=== PATIENT | male | born 1950 | race Caucasian/White ===

== ENCOUNTER 2016-07-05 08:32 | Day surgery (SDC) | payer BC ==
[2016-07-02 13:24] VITALS: BMI 35.5
--- NOTE | 2016-07-03 10:42 | HP ---
DATE OF ADMISSION: CHIEF COMPLAINT: Right knee pain. HISTORY OF PRESENT ILLNESS: The patient is a 65-year-old retired gentleman who presents with progressive right knee pain for the past several months after a twisting episode. He notes pain, swelling, stiffness, and giving way. It does limit his normal activities. PAST MEDICAL HISTORY: Significant for arthritis and hypertension along with thrombocytosis and narcolepsy. PAST SURGICAL HISTORY: Significant for hernia repair along with left total knee arthroplasty. CURRENT MEDICATIONS: 1. Aspirin. 2. Diltiazem. 3. Hydroxyurea. 4. Lisinopril. 5. Metoprolol. 6. Requip. He denies drug allergies. FAMILY HISTORY: Significant for cancer and heart disease. SOCIAL HISTORY: Negative for current tobacco or alcohol use. Sixteen-point review of systems otherwise reviewed and is noncontributory. On examination, the patient is approximately 5 feet 11 inches, 196 pounds of endomorphic habitus. HEENT exam is nonfocal. Neck is supple. He has painless passive motion of his right hip. Straight leg raise is negative. Active motion right knee -8 to 85 degrees of flexion. He has a moderate effusion. He is tender about the medial joint line. Collaterals are stable, Mauro's negative, Julian's elicits medial pain. His distal neurovascular exam appears intact in the right lower extremity. X-rays to include weight-bearing notch, lateral, and merchant views of the right knee obtained in the office show moderate medial compartment narrowing. IMPRESSION: 1. Right knee moderate medial compartment osteoarthrosis. 2. Right knee internal derangement with probable medial meniscal tear. RECOMMENDATIONS: I talked to the patient at length regarding his treatment options. He is having significant pain and mechanical symptoms in his right knee that limit him. After a thorough discussion, he opts to proceed with surgery. We will plan to proceed with arthroscopic evaluation with possible partial medial meniscectomy, in addition to medial femoral chondrectomy. We will likely perform that as an outpatient procedure. The patient underwent preoperative medical evaluation by Dr. Barnes.
[~2016-07-05 08:32] MED LIST: DEXAMETHASONE SOD PHOSPHATE 10 MG/ML 1 ML VIAL IV ONE; LACTATED RINGERS 1,000 ML IV SCH; MIDAZOLAM 2 MG/2 ML VIAL IV PRN; ONDANSETRON 4 MG/2 ML VIAL IVP ONE; SCOPOLAMINE 1.5MG/72HR PATCH TRANSDERM ONE; ceFAZolin 2 GM in SODIUM CHLORIDE 0.9% 100 ML IVPB ONE
[2016-07-05] MEDS ORDERED: LIDOCAINE 1% 20 ML VIAL (10MG/ML) FOR IV START INTRADERMA ONE (09:18)
[2016-07-05] MEDS ORDERED: ROCURONIUM BROMIDE 10 MG/ML 10 ML VIAL IV ONE (10:03)
[2016-07-05] MEDS ORDERED: PROPOFOL 10 MG/ML 20 ML VIAL IV ONE (10:03)
[2016-07-05] MEDS ORDERED: NEOSTIGMINE 1 MG/ML 10 ML VIAL ONE (10:03)
[2016-07-05] MEDS ORDERED: fentaNYL (PF) 50 MCG/ML 2 ML AMP ONE (10:03)
[2016-07-05] MEDS ORDERED: MIDAZOLAM 2 MG/2 ML VIAL ONE (10:03)
[2016-07-05] MEDS ORDERED: SUCCINYLCHOLINE CHLORIDE 100 MG/5 ML SYR IV ONE (10:03)
[2016-07-05] MEDS ORDERED: LIDOCAINE 1% INJ 10MG/ML (20 ML MDV) ONE (10:03)
[2016-07-05] MEDS ORDERED: GLYCOPYRROLATE 0.2 MG/ML 2 ML VIAL ONE (10:03)
[2016-07-05] MEDS ORDERED: LACTATED RINGERS 1,000 ML IV ONE (11:00)
--- NOTE | 2016-07-05 11:13 | P.OP ---
Date of Procedure: 07/05/16 Preoperative Diagnosis: Right knee internal derangement Postoperative Diagnosis: Right knee posterior medial meniscal tear/grade 3 chondral injury distal medial portion medial femoral condyle/posterior lateral meniscal tear/reactive synovitis of the medial and patellofemoral compartments Procedure(s) Performed: Right knee arthroscopic partial medial meniscectomy/partial lateral meniscectomy /medial femoral chondrectomy/partial synovectomy of the medial and patellofemoral compartments Anesthesia: GETA Surgeon: Lazarus Woods Estimated Blood Loss (ml): 10 Pathology: none sent Condition: stable Disposition: PACU Indications for Procedure: The patient is a 65-year-old male presents with progressive right knee pain and mechanical symptoms after previous twisting injury. A discussion of the risks and benefits of continued conservative measures versus operative intervention was made with patient. He opted to proceed with surgery. Operative risks to include infection, neurovascular injury, development of blood clots, possible incomplete resolution of symptoms, possible worsening of symptoms and need for subsequent procedures was discussed. Informed consent was obtained. Operative Findings: As below Description of Procedure: The patient was brought to the operating room, and after induction of general anesthesia examined the right knee. Collaterals were stable, Mauro was negative, and posterior drawer was negative. The right lower extremity was prepped and draped in normal fashion. A superior lateral portal was made through a 3 mm skin incision superior and lateral to the patella. This was used for outflow. A moderate effusion was encountered. A lateral portal was made through a 5 mm vertical skin incision lateral to the patellar tendon above the joint line. Diagnostic arthroscopy was performed. A medial portal was made through a similar incision medial to the patellar tendon above the joint line. On inspection of the medial compartment, he is noted have a complex tear involving the posterior horn of the medial meniscus in the white-red junction. This was debrided back to stable base with straight baskets and a motorized shaver. The edges were contoured. A corresponding grade 3 chondral injury was noted involving the distal portion of the medial femoral condyle. There was a loose chondral flap debrided back to stable base with a motorized shaver. Reactive synovitis involving the medial compartment was debrided with a motorized shaver. On inspection of the notch, the anterior cruciate ligament appeared be intact. On inspection of the lateral compartment, he is noted have a degenerative oblique meniscal tear involving the posterior to middle one third in the white-white junction. This was debrided back to stable base with straight baskets and a motorized shaver. The edges were contoured. On inspection of the patellofemoral articulation, there was degenerative changes however no loose chondral fragments. Reactive synovitis was debrided with motorized shaver. The gutters were clear debris. The knee was then thoroughly irrigated. The portals were closed with Steri-Strips. A sterile dressing was applied in addition to a compression stocking. The patient was awoken from general anesthesia and transferred to the recovery room in good condition. Blood loss was estimated at 10 mL. No complications were incurred.
[2016-07-05] MEDS ORDERED: ALBUTEROL NEBULIZED 2.5 MG/3 ML INHALATION ONE (12:04)
[2016-07-05 12:16] VITALS: TEMP 98.1
[2016-07-05] MEDS: HYDROmorphone 1 MG/ML 1 ML SYRINGE IVP PRN ×2 (12:20→12:29)
[2016-07-05 14:25] VITALS: PULSE 74; RESP 20
[2016-07-05] MEDS ORDERED: HYDROcodone/APAP 5-325MG 1 EACH TAB PO ONE (14:32)
[2016-07-05 15:12] VITALS: BP 126/61
--- NOTE | 2016-07-09 13:20 | CDI ---
Dear Dr. Langley, There is a charge on this account that Ventilation Assist was given to the patient. On page 12 of the Surgical Profile it does state that the patient was received in Phase I intubated with #8 ETT and then 5 minutes later was extubated. There is no documentation as to why the patient was intubated. For proper reporting purposes, this needs clarification. Please document this clarification as an addendum to the Operative report. Thank you for your time, Kathryn Hooks, [facility] Outpatient Wire Worker [email or web address]
== END 2016-07-05 15:39 | disposition home or self-care (01) ==
LOC: OR 08:32
PROVIDERS: ATTEND Orthopaedic Surgery
DX: M17.31 Unilateral post-traumatic osteoarthritis, right knee (principal); S83.241A Other tear of medial meniscus, current injury, right knee, initial encounter; S83.281A Other tear of lateral meniscus, current injury, right knee, initial encounter; X50.1XXA Overexertion from prolonged static or awkward postures, initial encounter; S89.91XA Unspecified injury of right lower leg, initial encounter; M65.861 Other synovitis and tenosynovitis, right lower leg; I10 Essential (primary) hypertension; G47.33 Obstructive sleep apnea (adult) (pediatric); Z99.89 Dependence on other enabling machines and devices; G47.419 Narcolepsy without cataplexy; G25.81 Restless legs syndrome; Z79.01 Long term (current) use of anticoagulants; Z79.82 Long term (current) use of aspirin; Z79.899 Other long term (current) drug therapy
CPT/HCPCS: 29880; 94002; 85730; J2250; J1100; J2710; J0690; J2405; J2001; J3010; J1170; J0330; J2704

== ENCOUNTER → 2016-11-12 | Outpatient (CLI) | payer MEDICARE ==
[2016-11-12 14:25] LABS: Blood Urea Nitrogen 18 mg/dL (9-20); Non-African American GFR(MDRD) >60 (>60 ml/min/1.73 sqM)
--- NOTE | 2016-11-12 15:08 | CT ---
EXAMINATION TYPE: CT chest wo/w con DATE OF EXAM: 11/12/2016 COMPARISON: November 22, 2015 HISTORY: Sarcoid CT DLP: 1266.40 mGycm Automated exposure control for dose reduction was used. CONTRAST: CT scan of the chest is performed without and with IV Contrast, patient injected with 100 ml mL of Om nipaque 300. FINDINGS: LUNGS: Chronic elevation right hemidiaphragm. Right basilar atelectasis or parenchymal scar is unchan ged. The remainder of the lungs are clear. Calcified granulomas also noted at the right lung base. MEDIASTINUM: There are no greater than 1 cm hilar or mediastinal lymph nodes. No pericardial effusi on is seen. Thoracic aorta is of normal caliber. The heart is not enlarged. UPPER ABDOMEN: Incidental hepatic steatosis. OTHER: No additional significant abnormality is seen. IMPRESSION: 1. Stable right basilar parenchymal scarring and/or atelectasis. Chronic elevation right hemidiaphrag m.
== END | disposition home or self-care (01) ==
LOC: RADCTMAIN 13:50
PROVIDERS: ATTEND Internal Medicine Rheumatology
DX: D86.9 Sarcoidosis, unspecified (principal)
CPT/HCPCS: 82565; 84520; 71270; 36415; Q9967

== ENCOUNTER → 2017-03-04 | Outpatient (CLI) | payer MEDICARE ==
--- NOTE | 2017-03-04 11:58 | XR ---
EXAMINATION TYPE: XR chest 2V DATE OF EXAM: 03/04/2017 COMPARISON: Chest CT November 12, 2016 HISTORY: Presurgical study TECHNIQUE: Frontal and lateral views of the chest are obtained. FINDINGS: The cardiac silhouette size is stable and mildly enlarged. There is persistent elevated ri ght hemidiaphragm with patchy right greater than left bibasilar atelectasis and/or infiltrate. Upper lungs are clear without pneumothorax. Cholecystectomy clips are noted. IMPRESSION: Cardiomegaly and elevated right hemidiaphragm with right greater than left bibasilar ate lectasis and/or infiltrate all redemonstrated.
== END | disposition home or self-care (01) ==
LOC: RADXRYALE 11:39
PROVIDERS: ATTEND Internal Medicine
DX: Z01.818 Encounter for other preprocedural examination (principal); I51.7 Cardiomegaly; J98.11 Atelectasis; R91.8 Other nonspecific abnormal finding of lung field
CPT/HCPCS: 71020

== ENCOUNTER → 2017-03-10 | Outpatient (CLI) | payer MEDICARE | END | disposition home or self-care (01) | LOC: LABPAT 11:14 | PROVIDERS: ATTEND Orthopaedic Surgery | DX: Z01.812 Encounter for preprocedural laboratory examination (principal) | CPT/HCPCS: 87070 ==

== ENCOUNTER → 2017-08-05 | Outpatient (CLI) | payer MEDICARE ==
[2017-08-05 13:00] LABS: ALT 37 U/L (21-72); AST 17 U/L (17-59)
== END | disposition home or self-care (01) ==
LOC: LABWHC1 12:34
PROVIDERS: ATTEND Dermatology
DX: B35.1 Tinea unguium (principal); L57.0 Actinic keratosis; L81.0 Postinflammatory hyperpigmentation; L82.1 Other seborrheic keratosis; D18.01 Hemangioma of skin and subcutaneous tissue; D48.5 Neoplasm of uncertain behavior of skin
CPT/HCPCS: 36415; 84450; 84460

== ENCOUNTER → 2017-12-16 | Outpatient (CLI) | payer MEDICARE ==
--- NOTE | 2017-12-16 13:17 | CT ---
EXAMINATION TYPE: CT abdomen pelvis wo con DATE OF EXAM: 12/16/2017 COMPARISON: None INDICATION: renal stones DLP: 1187 mGycm, Automated exposure control for dose reduction was used. CONTRAST: 0 mL of Isovue 300. Study performed without Oral Contrast TECHNIQUE: Axial images were obtained from above the diaphragm to the pubic rami in the axial plane a t 5 mm thick sections. Reconstructed images are reviewed on the computer in the coronal plane. FINDINGS: Limited CT sections are obtained the lung bases. Minimal atelectasis may be within the posterior med ial right lung base. Lung bases are otherwise clear.. CT ABDOMEN: Liver: Normal Spleen: Normal Pancreas: Normal Adrenal glands: The adrenal glands are normal. Gallbladder: Surgically absent Kidneys: No masses are evident. No hydronephrosis is present. No cysts are present. There is a 0.3 cm nonobstructing renal stone right kidney. Couple of punctate inferior pole renal stones without ob struction may be present. There is a nonobstructing large renal stone at the inferior pole left kidne y measuring 1.1 x 0.8 cm. No hydroureter is evident. Aorta: Vascular calcification is within the aorta. Inferior vena cava: Normal. CT PELVIS: Loops of bowel within the abdomen and pelvis are normal. Study is performed without oral contrast limiting bowel loop evaluation. A few diverticuli are evident. Appendix: Not identified. No suspicious inflammatory changes or dilated tubular structures are eviden t. Urinary bladder: Normal. Genitourinary structures: Prostate is somewhat prominent. A few calcifications are within the prostat e. Osseous structures: No suspicious lytic or sclerotic lesions. Facet degenerative changes lower lumbar spine. IMPRESSIONS: 1. Bilateral nonobstructing renal stones. No hydronephrosis or hydroureter is evident. 2. Diverticulosis without acute diverticulitis. 3. Prostate hypertrophy
== END | disposition home or self-care (01) ==
LOC: RADCTMAIN 11:06
PROVIDERS: ATTEND Urology
DX: N20.0 Calculus of kidney (principal); K57.90 Diverticulosis of intestine, part unspecified, without perforation or abscess without bleeding; N40.0 Benign prostatic hyperplasia without lower urinary tract symptoms
CPT/HCPCS: 74176

== ENCOUNTER → 2018-03-03 | Outpatient (CLI) | payer MEDICARE ==
--- NOTE | 2018-03-03 22:50 | MR ---
MRI CERVICAL SPINE: CLINICAL HISTORY: M 55.12 cervical radiculopathy per order. Headache with neck pain into left hand fo r 40 years per patient. TECHNIQUE: Multiplanar, multisequence imaging of the cervical spine is performed without IV contrast. COMPARISON: None. FINDINGS: Sagittal images of the cervical spine show the craniocervical junction to appear within nor mal limits. The cervical and upper thoracic spinal cord is normal in course, caliber, and signal. V ertebral alignment is straightened. The vertebral body heights are normal. There is mild to moderat e disc space narrowing with mild to moderate anterior spurring C6-C7 level. The bone marrow signal in tensity is overall heterogeneous. Axial images at C2-C3 level shows some uncovertebral facet degenerative changes bilaterally with mild broad disc bulge mildly effaces the anterior thecal sac, there is mild to moderate bilateral neural foraminal narrowing noted. Axial images at C3-C4 level showed broad based posterior disc protrusion effacing the anterior thecal sac and causing mild bilateral neural foraminal narrowing. Axial images at C4-C5 levels show more prominent moderate broad-based posterior disc protrusion effac ing anterior thecal sac with uncovertebral facet degenerative changes bilaterally contributing to mil d to moderate left and mild right-sided neural foraminal narrowing noted. Axial images at C5-C6 level are felt within normal limits. Axial images at C6-C7 level showed broad based posterior disc protrusion effacing the anterolateral t hecal sac and causing moderate to advanced right and moderate left-sided neural foraminal narrowing w ith some marginal spurring present. Axial images at C7-T1 level are felt within normal limits. IMPRESSION: Straightening of cervical spine with multilevel degenerative changes seen as detailed abo ve.
== END | disposition home or self-care (01) ==
LOC: RADMRIMAIN 20:34
PROVIDERS: ATTEND Internal Medicine Rheumatology
DX: M99.71 Connective tissue and disc stenosis of intervertebral foramina of cervical region (principal); M50.21 Other cervical disc displacement, high cervical region; M47.812 Spondylosis without myelopathy or radiculopathy, cervical region
CPT/HCPCS: 72141

== ENCOUNTER 2019-03-26 07:00 | Day surgery (SDC) | payer MEDICARE ==
[2019-03-24 10:55] VITALS: BMI 32.8
[~2019-03-26 07:00] MED LIST changes: -DEXAMETHASONE SOD PHOSPHATE 10 MG/ML 1 ML VIAL IV ONE; +LIDOCAINE 1% 20 ML VIAL (10MG/ML) FOR IV START INTRADERMA PRN; -MIDAZOLAM 2 MG/2 ML VIAL IV PRN; -ONDANSETRON 4 MG/2 ML VIAL IVP ONE; -SCOPOLAMINE 1.5MG/72HR PATCH TRANSDERM ONE; -ceFAZolin 2 GM in SODIUM CHLORIDE 0.9% 100 ML IVPB ONE
[2019-03-26 07:31] VITALS: TEMP 98.4
[2019-03-26 07:34] LABS: Glucose,Whole Blood 139 mg/dL (75-99)
[2019-03-26] MEDS ORDERED: PROPOFOL 10 MG/ML 20 ML VIAL IV ONE (07:40)
--- NOTE | 2019-03-26 08:20 | P.OP ---
Date of Procedure: 03/26/19 Preoperative Diagnosis: Screening colonoscopy Postoperative Diagnosis: Sigmoid polyp, splenic flexure polyp Diverticulosis Procedure(s) Performed: Colonoscopy with snare polypectomy x 2 Anesthesia: MAC Surgeon: Raghav Sánchez Estimated Blood Loss (ml): 2 Condition: stable Disposition: floor Description of Procedure: Patient is brought to the Endo suite placed in left lateral decubitus position with sedation per department of anesthesia prepped and draped in usual sterile fashion timeout performed correct patient correct procedure correct site was verified rectal exam was performed no gross abnormalities were noted the scope was passed from the rectum to cecum with ease and slowly withdrawn make sure to visualize all finn of the colon on the way out there was a sessile splenic flexure polyp which was removed via piecemeal with hot snare. There was also a pedunculated sigmoid polyp removed via hot snare. There were multiple large sigmoid diverticuli noted. Scope was reflexed in the rectum no other gross abnormalities are noted scope was withdrawn patient artery procedure well no apparent complications. Patient need a repeat colonoscopy in 1-3 years pending pathology.
[2019-03-26 08:23] VITALS: RESP 16
[2019-03-26 08:49] VITALS: BP 130/84; PULSE 78
== END 2019-03-26 08:50 | disposition home or self-care (01) ==
LOC: ORWHC2ENDO 07:00
PROVIDERS: ATTEND Student in an Organized Health Care Education/Training Program
DX: Z12.11 Encounter for screening for malignant neoplasm of colon (principal); D12.3 Benign neoplasm of transverse colon; D12.5 Benign neoplasm of sigmoid colon; K57.30 Diverticulosis of large intestine without perforation or abscess without bleeding; Z85.828 Personal history of other malignant neoplasm of skin; M19.90 Unspecified osteoarthritis, unspecified site; E11.42 Type 2 diabetes mellitus with diabetic polyneuropathy; I10 Essential (primary) hypertension; G47.33 Obstructive sleep apnea (adult) (pediatric); Z99.89 Dependence on other enabling machines and devices; Z90.49 Acquired absence of other specified parts of digestive tract; Z80.1 Family history of malignant neoplasm of trachea, bronchus and lung; Z82.49 Family history of ischemic heart disease and other diseases of the circulatory system; Z79.84 Long term (current) use of oral hypoglycemic drugs; Z79.52 Long term (current) use of systemic steroids; Z79.899 Other long term (current) drug therapy; Z96.653 Presence of artificial knee joint, bilateral
CPT/HCPCS: 88305; 45385; J2704; 45384

== ENCOUNTER → 2019-11-19 | Outpatient (CLI) | payer MEDICARE | END | disposition home or self-care (01) | LOC: LABWHC1 11:56 | PROVIDERS: ATTEND Surgery Trauma Surgery | DX: Z11.59 Encounter for screening for other viral diseases (principal) | CPT/HCPCS: U0003; C9803 ==

== ENCOUNTER → 2020-02-14 | Outpatient (CLI) | payer MEDICARE ==
[2020-02-14 14:39] LABS: Basophils # (A) 0.1 k/uL (0-0.2); Basophils % (A) 1 %; Eosinophils % (A) 1 %; HCT 46.7 % (39.0-53.0); HGB 15.1 gm/dL (13.0-17.5); Lymphocytes # (A) 2.1 k/uL (1.0-4.8); Lymphocytes % (A) 33 %; MCHC 32.3 g/dL (31.0-37.0); MCV 130.1 fL (80.0-100.0); Macrocytosis Marked; Monocytes # (A) 0.5 k/uL (0-1.0); Monocytes % (A) 7 %; Neutrophils # (A) 3.5 k/uL (1.3-7.7); Neutrophils % (A) 54 %; Platelet Count 289 k/uL (150-450); RBC 3.59 m/uL (4.30-5.90); RDW 12.8 % (11.5-15.5); WBC 6.4 k/uL (3.8-10.6)
[2020-02-14 19:26] LABS: African American GFR (CKD) 101.4 (60.0-200.0); Albumin 4.3 g/dL (3.80-4.90); Albumin/Globulin Ratio 1.95 (1.60-3.17); Anion Gap 6.1 mmol/L (4.00-12.00); BUN/Creat Ratio 13.33 Ratio (12.00-20.00); C Reactive Protein, High Sens 0.84 mg/L (0.000-3.000); Calcium 9.1 mg/dL (8.7-10.3); Carbon Dioxide 29.9 mmol/L (21.6-31.8); Globulin 2.2 g/dL (1.6-3.3); Non-African American GFR(CKD) 87.5 (60.0-200.0); Potassium 4.6 mmol/L (3.5-5.5); Total Protein 6.5 g/dL (6.2-8.2)
[2020-02-14 19:34] LABS: Erythrocyte Sedimentation Rate 14 mm/Hr (0-20)
[2020-02-14 20:04] LABS: Cyclic Citrull Pep IgG Unit <0.5 U/mL; Cyclic Citrullinated Pep IgG NEGATIVE (NEGATIVE)
[2020-02-15 12:46] LABS: Hepatitis B Core IgM Non-Reactive (Non-Reactive); Hepatitis B Surface AB- Quant 3.5 mIU/mL; Hepatitis B Surface Antibody Non-Reactive (Non-Reactive); Hepatitis B Surface Antigen Non-Reactive (Non-Reactive); Hepatitis C IgG Antibody Non-Reactive (Non-Reactive)
[2020-02-15 12:57] LABS: HLA B27 NEGATIVE
== END | disposition home or self-care (01) ==
LOC: LABWHC1 12:11
PROVIDERS: ATTEND Internal Medicine Rheumatology
DX: L40.0 Psoriasis vulgaris (principal); L40.59 Other psoriatic arthropathy
CPT/HCPCS: 36415; 80053; 85025; 85652; 86038; 86141; 86200; 86431; 86480; 86704; 86705; 86706; 86803; 86812; 87340

== ENCOUNTER → 2020-03-10 | Outpatient (CLI) | payer MEDICARE | END | disposition home or self-care (01) | LOC: LABWHC1 09:11 | PROVIDERS: ATTEND Internal Medicine | DX: R05 Cough (principal); R50.9 Fever, unspecified | CPT/HCPCS: U0003; C9803 ==

== ENCOUNTER 2020-03-21 14:25 | Inpatient (IN) | payer MEDICARE ==
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
[2020-03-21] MEDS ORDERED: SODIUM CHLORIDE 0.9% 1,000 ML IV ONE (15:21)
[2020-03-21 15:49] LABS: INR 1.2 (<1.2)
[2020-03-21] MEDS: ACETAMINOPHEN TAB 325 MG TAB PO PRN (15:49)
[2020-03-21] MEDS: SODIUM CHLORIDE 0.9% 1,000 ML IV SCH (15:50)
[2020-03-21 15:51] LABS: HCT 49.9 % (39.0-53.0); HGB 16.8 gm/dL (13.0-17.5); MCHC 33.6 g/dL (31.0-37.0); Macrocytosis Marked; Mean Platelet Volume 9.1; Platelet Count 167 k/uL (150-450); RBC 4.09 m/uL (4.30-5.90); RDW 12.5 % (11.5-15.5); WBC 5.4 k/uL (3.8-10.6)
--- NOTE | 2020-03-21 15:51 | XR ---
EXAMINATION TYPE: XR chest 1V portable DATE OF EXAM: 03/21/2020 COMPARISON: 03/04/2020 HISTORY: FEVER, SOB TECHNIQUE: Single frontal view of the chest is obtained. FINDINGS: Diffuse interstitial pattern with bilateral consolidation and small effusion. Stimulator d evice noted. No pneumothorax. Heart size prominent. IMPRESSION: 1. Diffuse bilateral infiltrates with pleural effusion correlate for pneumonia. Underlying CHF felt l ess likely but not excluded.
[2020-03-21 15:54] LABS: Albumin 3.3 g/dL (3.5-5.0); C Reactive Protein 27.9 mg/L (<10.0); Calcium 8.2 mg/dL (8.4-10.2); MCV 122.1 fL (80.0-100.0); Magnesium 2.2 mg/dL (1.6-2.3); Potassium 3.7 mmol/L (3.5-5.1); Total Protein 6.3 g/dL (6.3-8.2)
[2020-03-21 15:59] LABS: D-Dimer 1.82 mg/L FEU (<0.60)
[2020-03-21 16:24] LABS: Band Neutrophils % 2 %; Lymphocytes # (M) 1.73 k/uL (1.0-4.8); Monocytes # (M) 0.65 k/uL (0-1.0); Neutrophils % (M) 54 %; Nucleated Red Blood Cells 0 /100 WBC (0-0); Total Cells Counted 100
[2020-03-21 16:25] LABS: Anisocytosis (M) Present; Polychromasia Present
--- NOTE | 2020-03-21 16:46 | CT ---
EXAMINATION TYPE: CT chest angio for PE DATE OF EXAM: 03/21/2020 COMPARISON: 11/12/2016 HISTORY: dimer elevated, covid + CT DLP: 497.2 mGycm Automated exposure control for dose reduction was used. CONTRAST: Performed with IV Contrast, patient injected with 100 mL of Isovue 370. Images obtained from the thoracic inlet to the diaphragm with 3-D post processed images. There is patchy peripheral bilateral pulmonary interstitial and airspace infiltrates. This is more co ncentrated in the lower lobes. There is relative sparing of the left upper lobe. There are a few medi astinal lymph nodes that measure up to 12 mm. There are multiple bilateral bronchial lymph nodes up t o 1 cm. There is elevation of the right diaphragm. Heart size is normal. There is no pericardial effusion. There is no pleural effusion. There is some a telectasis at both posterior lung bases. Thoracic aorta is intact. There is no aneurysm or dissection. The ascending aorta measures 3.4 cm. Upper abdominal soft tissues are intact. There is normal contrast opacification of the pulmonary arteries. There are no filling defects. Bony thorax is intact. There is no compression fracture. Sternum is intact. IMPRESSION: Bilateral patchy pneumonia and atelectasis. No evidence of pulmonary embolism. Mediastinal and bronchial lymph nodes are likely inflammatory. Pul monary infiltrates are mostly new compared to old exam. Right basilar atelectasis not significantly d ifferent.
[2020-03-21] MEDS ORDERED: NALOXONE 0.4 MG/ML 1 ML VIAL IV PRN (16:59)
[2020-03-22] MEDS ORDERED: HYDROcodone/APAP 5-325MG 1 EACH TAB PO PRN (01:33)
[2020-03-22] MEDS: ACETAMINOPHEN TAB 325 MG TAB PO PRN (02:39)
[2020-03-22] MEDS: SODIUM CHLORIDE 0.9% 1,000 ML IV SCH ×3 (02:41→16:19)
[2020-03-22] MEDS: guaiFENesin-DM 100-10MG/5ML 10 ML CUP PO PRN ×2 (02:47→09:00)
[2020-03-22 04:09] LABS: Ferritin 2543.9 ng/mL (22.0-322.0)
[2020-03-22 08:25] LABS: Glucose,Whole Blood 99 mg/dL (75-99)
[2020-03-22] MEDS: METOPROLOL TARTRATE 50 MG TAB PO SCH ×2 (09:00→22:21)
[2020-03-22] MEDS: ENOXAPARIN 40 MG/0.4 ML SYRINGE SQ SCH (09:00)
[2020-03-22] MEDS: ASPIRIN 325 MG TAB PO SCH (09:00)
[2020-03-22] MEDS: PANTOPRAZOLE 40 MG/10 ML VIAL IVP SCH (09:00)
[2020-03-22] MEDS: DILTIAZEM CD 120 MG CAP.ER.24H PO SCH ×2 (09:00→22:12)
[2020-03-22] MEDS ORDERED: dexAMETHasone 2 MG TAB PO SCH (09:00)
[2020-03-22] MEDS: PIOGLITAZONE 15 MG TAB PO SCH (09:01)
[2020-03-22] MEDS: HYDROXYUREA 500 MG CAP PO SCH ×4 (09:01→22:12)
[2020-03-22] MEDS: ASCORBIC ACID 500 MG TAB PO SCH (09:13)
[2020-03-22] MEDS: ZINC SULFATE 220 MG CAP PO SCH (09:13)
[2020-03-22 11:38] LABS: Glucose,Whole Blood 204 mg/dL (75-99)
[2020-03-22 17:12] LABS: Glucose,Whole Blood 252 mg/dL (75-99)
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
[2020-03-22 19:56] LABS: Glucose,Whole Blood 301 mg/dL (75-99)
[2020-03-22] MEDS: MELATONIN 5 MG TABLET PO SCH (22:21)
[2020-03-22] MEDS: GABAPENTIN 300 MG CAP PO SCH (22:21)
[2020-03-23] MEDS ORDERED: INSULIN ASPART (NovoLOG) 100 UNIT/ML VIAL SQ ONE (00:31)
[2020-03-23] MEDS: SODIUM CHLORIDE 0.9% 1,000 ML IV SCH ×4 (01:16→23:46)
[2020-03-23 01:23] LABS: Glucose,Whole Blood 224 mg/dL (75-99)
[2020-03-23 07:06] LABS: Glucose,Whole Blood 191 mg/dL (75-99)
[2020-03-23] MEDS: PANTOPRAZOLE 40 MG/10 ML VIAL IVP SCH (07:48)
[2020-03-23] MEDS: ENOXAPARIN 40 MG/0.4 ML SYRINGE SQ SCH (07:48)
[2020-03-23] MEDS: INSULIN ASPART (NovoLOG) 100 UNIT/ML VIAL SQ SCH ×4 (07:48→23:45)
[2020-03-23] MEDS: dexAMETHasone 2 MG TAB PO SCH (07:49)
[2020-03-23] MEDS: HYDROXYUREA 500 MG CAP PO SCH ×4 (07:49→23:16)
[2020-03-23] MEDS: FAMOTIDINE 20 MG TAB PO SCH (07:49)
[2020-03-23] MEDS: ZINC SULFATE 220 MG CAP PO SCH (07:50)
[2020-03-23] MEDS: ASCORBIC ACID 500 MG TAB PO SCH (07:50)
[2020-03-23] MEDS: CHOLECALCIFEROL 400 UNIT TAB PO SCH (07:50)
[2020-03-23] MEDS: ASPIRIN 325 MG TAB PO SCH (07:50)
[2020-03-23] MEDS: METOPROLOL TARTRATE 50 MG TAB PO SCH ×2 (07:50→23:17)
[2020-03-23] MEDS: PIOGLITAZONE 15 MG TAB PO SCH (07:50)
[2020-03-23] MEDS: DILTIAZEM CD 120 MG CAP.ER.24H PO SCH ×2 (07:51→23:15)
[2020-03-23 12:00] LABS: Glucose,Whole Blood 242 mg/dL (75-99)
--- NOTE | 2020-03-23 14:11 | P.PN ---
Subjective Progress Note Date: 03/23/20 Principal diagnosis: CoVID 19 infection The patient is seen today 03/23/2020 in follow-up on the regular medical floor. He was seen in consultation yesterday by Dr. Hernandez. He is found to have cold 19 infection. His symptoms started 3 weeks ago. He was positive on 03/10/2020. He was managing at home until the last few days he was getting more short of breath with cough congestion fever weakness. He presented to hospital for the same. Today he is feeling a bit better. He is sitting up in a chair at the bedside. He is maintaining O2 saturation in the low 90s on 2 L/m per nasal cannula. He is afebrile. Hemodynamically stable. He is continued on Decadron, Lovenox, Pepcid, vitamin C, vitamin D, zinc. Objective - Vital Signs Vital signs: Vital Signs Temp 97.5 F L 03/23/20 11:00 Pulse 52 L 03/23/20 11:00 Resp 22 03/23/20 11:00 BP 100/58 03/23/20 11:00 Pulse Ox 93 L 03/23/20 13:17 Intake & Output 03/22/20 03/23/20 03/23/20 18:59 06:59 18:59 Intake Total 500 590 Balance 500 590 Intake: Intake, IV Titration 260 Amount Sodium Chloride 0.9% 1, 260 000 ml @ 130 mls/hr IV . Q7H42M [facility] Rx#:[id number] Oral 240 590 Other: # Voids 2 # Bowel Movements 1 0 - Exam GENERAL EXAM: Alert, pleasant 69-year-old gentleman, up in a chair at the bedside, on 2 L nasal cannula comfortable in no apparent distress. HEAD: Normocephalic. EYES: Normal reaction of pupils, equal size. NOSE: Clear with pink turbinates. THROAT: No erythema or exudates. NECK: No masses, no JVD. CHEST: No chest wall deformity. LUNGS: Equal air entry with coarse scattered rhonchi bilaterally. CVS: S1 and S2 normal with no audible murmur, regular rhythm. ABDOMEN: No hepatosplenomegaly, normal bowel sounds, no guarding or rigidity. SPINE: No scoliosis or deformity SKIN: No rashes CENTRAL NERVOUS SYSTEM: No focal deficits, tone is normal in all 4 extremities. EXTREMITIES: There is no peripheral edema. No clubbing, no cyanosis. Peripheral pulses are intact. - Labs CBC & Chem 7: 03/21/20 15:16 03/21/20 15:16 Labs: Abnormal Lab Results - Last 24 Hours (Table) 03/22/20 03/22/20 03/23/20 Range/Units 17:10 19:54 01:12 POC Glucose (mg/dL) 252 H 301 H 224 H (75-99) mg/dL 03/23/20 03/23/20 Range/Units 07:05 11:56 POC Glucose (mg/dL) 191 H 242 H (75-99) mg/dL Microbiology - Last 24 Hours (Table) 03/21/20 15:16 Blood Culture - Preliminary Blood No Growth after 24 hours Assessment and Plan Assessment: 1 Acute hypoxemic respiratory failure secondary to CoVID 19 pneumonitis, tested positive 03/10/2020, outside of the window for Remdesivir 2 history of skin cancer 3 Diabetes mellitus 4 Diabetic neuropathy 5 Hypertension 6 Obstructive sleep apnea, currently on CPAP 7 Degenerative joint disease 8 Diverticular disease 9 Polycythemia rubra vera, on hydroxyurea Plan: The patient was seen and evaluated by Dr. Hernandez The patient is improved but not quite back to his baseline Continue current treatment plan Titrate down the FiO2 as tolerated Repeat chest x-ray in a.m. We'll continue to follow I, the cosigning physician, performed a history & physical examination of the patient. Lungs sounds with bilateral scattered rhonchi. Maintaining good O2 saturations in the 90s on 2 L/m per nasal cannula. I discussed the assessment and plan of care with my nurse practitioner, Betty Davis. I attest to the above note as dictated by her.
[2020-03-23 17:07] LABS: Glucose,Whole Blood 297 mg/dL (75-99)
[2020-03-23 19:58] LABS: Glucose,Whole Blood 233 mg/dL (75-99)
[2020-03-23] MEDS: MELATONIN 5 MG TABLET PO SCH (23:15)
[2020-03-23] MEDS: GABAPENTIN 300 MG CAP PO SCH (23:16)
[2020-03-23 23:41] LABS: Glucose,Whole Blood 220 mg/dL (75-99)
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
--- NOTE | 2020-03-24 00:42 | P.PN ---
Subjective This is a pleasant 69 years old male with past medical history of hypertension, diabetes mellitus, sleep apnea on BiPAP, skin cancer, blood disease that. With Dr. Whitten and is on hydroxyurea, neuropathy. He is a patient of Dr. Barnes and he was diagnosed with Covid positive test about 3 weeks ago. This time he presents because of dyspnea that is progressively worse. She has also some muscle pain and coughing and generalized weakness. Also she has some upper respiratory symptoms like sore throat with resistant loss of taste and smell. No chest pain. On admission he has fever of 100.4, he is saturating 93% on 3-4 L via nasal cannula, (was 84% on room air ), patient is tachypneic 22-28. Blood pressure is stable. CBC showing unremarkable WBC, hemoglobin is normal, platelets also normal. He has marked microcytosis with MCV of 122. INR is 1.2, d-dimer is elevated at 1.8, rest of BMP and liver enzymes were unremarkable. Ferritin is increased at 2543, lactate dehydrogenase high at 1349 and high C-reactive protein and 27.9. Pro-calcitonin is normal at 0.08 EKG showing normal sinus rhythm at 99 BPM with no significant ST-T changes CTA of the chest showing bilateral patchy pneumonia and infiltrate, no evidence of pulmonary embolism, mediastinal and bronchial lymph nodes are likely inflammatory. And emergency room he received 1 dose of ceftriaxone and 1 L of normal saline. 03/23/2020 Patient is in mild respiratory distress, he thinks he is improving, he is working between the chair in bed with no difficulties. Minimal cough. No chest pain Reason for visit oxygen with saturation 89-90% Follow-up chest x-ray not limited to marker in the morning Review of systems CONSTITUTIONAL: No fever, no malaise, no fatigue. HEENT: No recent visual problems or hearing problems. Denied any sore throat. CARDIOVASCULAR: No orthopnea, PND, no palpitations, no syncope. PULMONARY: No chest wall tenderness, no hemoptysis. GASTROINTESTINAL: No diarrhea, no nausea, no vomiting, no abdominal pain. Normoactive bowel sounds. NEUROLOGICAL: No headaches, no weakness, no numbness. HEMATOLOGICAL: Denies any bleeding or petechiae. Active Medications Generic Name Dose Route Start Last Admin Trade Name Freq PRN Reason Stop Dose Admin Acetaminophen 650 mg 03/21/20 15:00 03/22/20 02:39 Acetaminophen Tab 325 Mg Tab PO 650 mg Q4HR PRN Administration Fever>101 Hydrocodone Bitart/Acetaminophen 1 each 03/22/20 01:33 Hydrocodone/Apap 5-325mg 1 Each Tab PO Q6H PRN Pain Ascorbic Acid 1,000 mg 03/22/20 09:00 03/23/20 07:50 Ascorbic Acid 500 Mg Tab PO 1,000 mg DAILY MATT Administration Aspirin 325 mg 03/22/20 09:00 03/23/20 07:50 Aspirin 325 Mg Tab PO 325 mg DAILY MATT Administration Cholecalciferol 400 unit 03/23/20 09:00 03/23/20 07:50 Cholecalciferol 400 Unit Tab PO 400 unit DAILY MATT Administration Dexamethasone 6 mg 03/23/20 09:00 03/23/20 07:49 Dexamethasone 2 Mg Tab PO 6 mg DAILY MATT Administration Diltiazem HCl 120 mg 03/22/20 09:00 03/23/20 23:15 Diltiazem Cd 120 Mg Cap.Er.24h PO 120 mg BID MATT Administration Enoxaparin Sodium 40 mg 03/22/20 09:00 03/23/20 07:48 Enoxaparin 40 Mg/0.4 Ml Syringe SQ 40 mg DAILY MATT Administration Famotidine 40 mg 03/23/20 09:00 03/23/20 07:49 Famotidine 20 Mg Tab PO 40 mg DAILY MATT Administration Gabapentin 300 mg 03/22/20 21:00 03/23/20 23:16 Gabapentin 300 Mg Cap PO 300 mg HS MATT Administration Guaifenesin/Dextromethorphan 10 ml 03/22/20 01:33 03/22/20 09:00 Guaifenesin-Dm 100-10mg/5ml 10 Ml Cup PO 10 ml Q8H PRN Administration Cough Hydroxyurea 500 mg 03/22/20 09:00 03/23/20 23:16 Hydroxyurea 500 Mg Cap PO 500 mg QID MATT Administration Sodium Chloride 1,000 mls @ 75 mls/hr 03/21/20 15:30 03/23/20 23:46 Saline 0.9% IV 130 mls/hr .[id number] [facility] Administration Insulin Aspart 0 unit 03/23/20 07:30 03/23/20 23:45 Insulin Aspart (Novolog) 100 Unit/Ml Vial SQ 3 unit ACHS MATT Administration Protocol Melatonin 5 mg 03/22/20 21:00 03/23/20 23:15 Melatonin 5 Mg Tablet PO 5 mg HS MATT Administration Metoprolol Tartrate 100 mg 03/22/20 09:00 03/23/20 23:17 Metoprolol Tartrate 50 Mg Tab PO 100 mg BID MATT Administration Naloxone HCl 0.2 mg 03/21/20 16:59 Naloxone 0.4 Mg/Ml 1 Ml Vial IV Q2M PRN Opioid Reversal Pantoprazole Sodium 40 mg 03/22/20 09:00 03/23/20 07:48 Pantoprazole 40 Mg/10 Ml Vial IVP 40 mg DAILY MATT Administration Pioglitazone HCl 15 mg 03/22/20 09:00 03/23/20 07:50 Pioglitazone 15 Mg Tab PO 15 mg DAILY [facility]ATT Administration Ropinirole HCl 3 mg 03/22/20 09:00 03/23/20 23:15 Ropinirole Hcl 1 Mg Tab PO 3 mg QID MATT Administration Zinc Sulfate 220 mg 03/22/20 09:00 03/23/20 07:50 Zinc Sulfate 220 Mg Cap PO 220 mg DAILY MATT Administration Objective - Vital Signs Vital signs: Vital Signs Temp 97.5 F L 03/23/20 11:00 Pulse 52 L 03/23/20 11:00 Resp 22 03/23/20 11:00 BP 100/58 03/23/20 11:00 Pulse Ox 93 L 03/23/20 13:17 Intake & Output 03/22/20 03/23/20 03/23/20 18:59 06:59 18:59 Intake Total 500 590 Balance 500 590 Intake: Intake, IV Titration 260 Amount Sodium Chloride 0.9% 1, 260 000 ml @ 130 mls/hr IV . Q7H42M [facility] Rx#:[id number] Oral 240 590 Other: # Voids 2 # Bowel Movements 1 0 - Exam GENERAL: The patient is alert and oriented x3, not in any acute distress. Well developed, well nourished. HEENT: Pupils are round and equally reacting to light. EOMI. No scleral icterus. No conjunctival pallor. Normocephalic, atraumatic. No pharyngeal erythema. No thyromegaly. CARDIOVASCULAR: S1 and S2 present. No murmurs, rubs, or gallops. -PULMONARY: Chest is clear to auscultation, no wheezing. Bilateral regurgitation and decreased breath sounds ABDOMEN: Soft, nontender, nondistended, normoactive bowel sounds. No palpable organomegaly. MUSCULOSKELETAL: No joint swelling or deformity. EXTREMITIES: No cyanosis, clubbing, or pedal edema. NEUROLOGICAL: Gross neurological examination did not reveal any focal deficits. SKIN: No rashes. No petechiae - Labs CBC & Chem 7: 03/21/20 15:16 03/21/20 15:16 Labs: Abnormal Lab Results - Last 24 Hours (Table) 03/22/20 03/22/20 03/23/20 Range/Units 17:10 19:54 01:12 POC Glucose (mg/dL) 252 H 301 H 224 H (75-99) mg/dL 03/23/20 03/23/20 Range/Units 07:05 11:56 POC Glucose (mg/dL) 191 H 242 H (75-99) mg/dL Microbiology - Last 24 Hours (Table) 03/21/20 15:16 Blood Culture - Preliminary Blood No Growth after 24 hours Assessment and Plan Assessment: Bilateral Covid pneumonia acute hypoxic respiratory failure secondary to above Increase inflammatory markers secondary to above Diabetes mellitus Hypertension Sleep apnea on BiPAP Blood Dyscrasia on hydroxyurea and follow-up with Dr. Whitten History of neuropathy Plan: This is a pleasant 69 years old male who presents with bilateral Covid pneumonia. Continue with ascorbic acid and zinc, Lovenox. Continue with dexamethasone. Follow-up inflammatory markers. Consult pulmonary service Labs and medication were reviewed.. Continue same treatment. Continue with symptomatic treatment. Resume home medication. Monitor lytes and vitals. DVT and GI prophylaxis. Further recommendations depends on the clinical course of the patient DVT prophylaxis: Subcutaneous Lovenox GI Prophylaxis: Ppi Prognosis is guarded
--- NOTE | 2020-03-24 07:04 | XR ---
EXAMINATION TYPE: XR chest 1V portable DATE OF EXAM: 03/24/2020 CLINICAL HISTORY: Difficulty breathing progress study. Covid positive TECHNIQUE: Single AP portable upright view of the chest is obtained. COMPARISON: Chest x-ray and CTA chest from 3 days earlier FINDINGS: Elevated right hemidiaphragm redemonstrated. Background chronic emphysematous change with persistent left mid to basilar opacities. Worsening right mid lung predominantly peripheral opacity. Cardiac silhouette size is stable and mildly enlarged with persistent silhouetting left heart border. Cholecystectomy clips incidentally noted. Spinal stimulator device lower thoracic spinal canal redem onstrated. IMPRESSION: Chronic changes with persistent left mid to lower lung acute infiltrates felt Stable. Wor sening right midlung acute infiltrates. Findings consistent with covid-19 infection progression.
[2020-03-24 07:11] LABS: Glucose,Whole Blood 197 mg/dL (75-99)
[2020-03-24] MEDS: FAMOTIDINE 20 MG TAB PO SCH (08:44)
[2020-03-24] MEDS: ENOXAPARIN 40 MG/0.4 ML SYRINGE SQ SCH (08:44)
[2020-03-24] MEDS: INSULIN ASPART (NovoLOG) 100 UNIT/ML VIAL SQ SCH ×4 (08:45→20:32)
[2020-03-24] MEDS: PANTOPRAZOLE 40 MG/10 ML VIAL IVP SCH (08:45)
[2020-03-24] MEDS: ASPIRIN 325 MG TAB PO SCH (08:45)
[2020-03-24] MEDS: HYDROXYUREA 500 MG CAP PO SCH ×4 (08:45→22:56)
[2020-03-24] MEDS: METOPROLOL TARTRATE 50 MG TAB PO SCH ×2 (08:45→20:32)
[2020-03-24] MEDS: DILTIAZEM CD 120 MG CAP.ER.24H PO SCH ×2 (08:46→20:32)
[2020-03-24] MEDS: PIOGLITAZONE 15 MG TAB PO SCH (08:46)
[2020-03-24] MEDS: dexAMETHasone 2 MG TAB PO SCH (08:46)
[2020-03-24] MEDS: ZINC SULFATE 220 MG CAP PO SCH (08:46)
[2020-03-24] MEDS: ASCORBIC ACID 500 MG TAB PO SCH (08:47)
[2020-03-24] MEDS: CHOLECALCIFEROL 400 UNIT TAB PO SCH (08:47)
[2020-03-24] MEDS: SODIUM CHLORIDE 0.9% 1,000 ML IV SCH ×2 (09:01→20:31)
[2020-03-24 11:52] LABS: Glucose,Whole Blood 239 mg/dL (75-99)
--- NOTE | 2020-03-24 13:56 | P.PN ---
Subjective Progress Note Date: 03/24/20 Principal diagnosis: CoVID 19 infection The patient is seen today 03/23/2020 in follow-up on the regular medical floor. He was seen in consultation yesterday by Dr. Hernandez. He is found to have cold 19 infection. His symptoms started 3 weeks ago. He was positive on 03/10/2020. He was managing at home until the last few days he was getting more short of breath with cough congestion fever weakness. He presented to hospital for the same. Today he is feeling a bit better. He is sitting up in a chair at the bedside. He is maintaining O2 saturation in the low 90s on 2 L/m per nasal cannula. He is afebrile. Hemodynamically stable. He is continued on Decadron, Lovenox, Pepcid, vitamin C, vitamin D, zinc. The patient is seen today 03/24/2020 in follow-up on the regular medical floor. He is currently sitting up in a chair at the bedside. Awake and alert in no acute distress. He is maintaining O2 saturation in low 90s on 6 L high flow nasal cannula. He is currently afebrile. D-dimer 0.71. Chest x-ray reveals chronic changes with persistent left mid and lower lung infiltrates with worsening right midlung infiltrate. He remains on dexamethasone, Lovenox, vi tamin C, vitamin D, Pepcid, zinc. Objective - Vital Signs Vital signs: Vital Signs Temp 97.4 F L 03/24/20 11:35 Pulse 60 03/24/20 11:35 Resp 18 03/24/20 11:35 BP 97/59 03/24/20 11:35 Pulse Ox 91 L 03/24/20 11:35 Intake & Output 03/23/20 03/24/20 03/24/20 18:59 06:59 18:59 Intake Total 1430 Balance 1430 Intake: Intake, IV Titration 1430 Amount Sodium Chloride 0.9% 1, 1430 000 ml @ 130 mls/hr IV . Q7H42M [facility] Rx#:[id number] Other: # Voids 0 # Bowel Movements 0 - Exam GENERAL EXAM: Alert, pleasant 69-year-old gentleman, up in a chair at the bedside, on 6 L nasal cannula, comfortable in no apparent distress. HEAD: Normocephalic. EYES: Normal reaction of pupils, equal size. NOSE: Clear with pink turbinates. THROAT: No erythema or exudates. NECK: No masses, no JVD. CHEST: No chest wall deformity. LUNGS: Equal air entry with coarse scattered rhonchi bilaterally. CVS: S1 and S2 normal with no audible murmur, regular rhythm. ABDOMEN: No hepatosplenomegaly, normal bowel sounds, no guarding or rigidity. SPINE: No scoliosis or deformity SKIN: No rashes CENTRAL NERVOUS SYSTEM: No focal deficits, tone is normal in all 4 extremities. EXTREMITIES: There is no peripheral edema. No clubbing, no cyanosis. Peripheral pulses are intact. - Labs CBC & Chem 7: 03/21/20 15:16 03/21/20 15:16 Labs: Abnormal Lab Results - Last 24 Hours (Table) 03/23/20 03/23/20 03/23/20 Range/Units 17:05 19:55 23:30 D-Dimer (<0.60) mg/L FEU POC Glucose (mg/dL) 297 H 233 H 220 H (75-99) mg/dL 03/24/20 03/24/20 03/24/20 Range/Units 07:00 08:39 11:49 D-Dimer 0.71 H (<0.60) mg/L FEU POC Glucose (mg/dL) 197 H 239 H (75-99) mg/dL Microbiology - Last 24 Hours (Table) 03/21/20 15:16 Blood Culture - Preliminary Blood No Growth after 48 hours Assessment and Plan Assessment: 1 Acute hypoxemic respiratory failure secondary to CoVID 19 pneumonitis, tested positive 03/10/2020, outside of the window for Remdesivir 2 History of skin cancer 3 Diabetes mellitus 4 Diabetic neuropathy 5 Hypertension 6 Obstructive sleep apnea, currently on CPAP 7 Degenerative joint disease 8 Diverticular disease 9 Polycythemia rubra vera, on hydroxyurea Plan: The patient was seen and evaluated by Dr. Hernandez Chest x-ray and labs reviewed. Continue current treatment plan Titrate down the FiO2 as tolerated We'll continue to follow I, the cosigning physician, performed a history & physical examination of the patient. Lungs sounds with bilateral scattered rhonchi. Maintaining good O2 saturations in the 90s on 6 L/m per nasal cannula. I discussed the assessment and plan of care with my nurse practitioner, Betty Davis. I attest to the above note as dictated by her.
[2020-03-24 17:13] LABS: C Reactive Protein 2.5 mg/dL (0.0-0.8); Ferritin 1813.8 ng/mL (22.0-322.0)
[2020-03-24 17:15] LABS: Glucose,Whole Blood 240 mg/dL (75-99)
[2020-03-24 20:06] LABS: Glucose,Whole Blood 331 mg/dL (75-99)
[2020-03-24] MEDS: MELATONIN 5 MG TABLET PO SCH (20:32)
[2020-03-24] MEDS: GABAPENTIN 300 MG CAP PO SCH (20:32)
[2020-03-25 07:26] LABS: Glucose,Whole Blood 197 mg/dL (75-99)
[2020-03-25 09:25] LABS: HCT 43.5 % (39.0-53.0); HGB 14.7 gm/dL (13.0-17.5); MCH 41.3 pg (25.0-35.0); MCHC 33.8 g/dL (31.0-37.0); MCV 122.2 fL (80.0-100.0); Macrocytosis Marked; Mean Platelet Volume 8.6; Platelet Count 304 k/uL (150-450); RBC 3.56 m/uL (4.30-5.90); RDW 12.1 % (11.5-15.5); WBC 6.3 k/uL (3.8-10.6)
[2020-03-25 09:37] LABS: African American GFR (CKD) >90 (>60 ml/min/1.73 sqM); Anion Gap 0 mmol/L; Blood Urea Nitrogen 22 mg/dL (9-20); C Reactive Protein 18.6 mg/L (<10.0); Calcium 8.3 mg/dL (8.4-10.2); Carbon Dioxide 31 mmol/L (22-30); Chloride 107 mmol/L (98-107); Glucose 243 mg/dL (74-99); LDH 1140 U/L (313-618); Non-African American GFR(CKD) >90 (>60 ml/min/1.73 sqM); Potassium 5.4 mmol/L (3.5-5.1); Sodium 138 mmol/L (137-145)
[2020-03-25] MEDS: INSULIN ASPART (NovoLOG) 100 UNIT/ML VIAL SQ SCH ×5 (09:41→20:29)
[2020-03-25] MEDS: METOPROLOL TARTRATE 50 MG TAB PO SCH ×2 (09:42→20:29)
[2020-03-25] MEDS: ASPIRIN 325 MG TAB PO SCH (09:42)
[2020-03-25] MEDS: FAMOTIDINE 20 MG TAB PO SCH (09:42)
[2020-03-25] MEDS: dexAMETHasone 2 MG TAB PO SCH (09:42)
[2020-03-25] MEDS: ASCORBIC ACID 500 MG TAB PO SCH (09:43)
[2020-03-25] MEDS: PANTOPRAZOLE 40 MG/10 ML VIAL IVP SCH (09:43)
[2020-03-25] MEDS: ZINC SULFATE 220 MG CAP PO SCH (09:43)
[2020-03-25] MEDS: HYDROXYUREA 500 MG CAP PO SCH ×4 (09:44→22:38)
[2020-03-25] MEDS: CHOLECALCIFEROL 400 UNIT TAB PO SCH (09:45)
[2020-03-25] MEDS: ENOXAPARIN 40 MG/0.4 ML SYRINGE SQ SCH (09:45)
[2020-03-25] MEDS: PIOGLITAZONE 15 MG TAB PO SCH (09:45)
[2020-03-25] MEDS: DILTIAZEM CD 120 MG CAP.ER.24H PO SCH ×2 (09:45→20:29)
[2020-03-25] MEDS: SODIUM CHLORIDE 0.9% 1,000 ML IV SCH ×2 (09:51→20:32)
[2020-03-25 10:26] LABS: Band Neutrophils % 1 %; Lymphocytes # (M) 1.01 k/uL (1.0-4.8); Monocytes # (M) 0.13 k/uL (0-1.0); Neutrophils % (M) 81 %; Nucleated Red Blood Cells 0 /100 WBC (0-0); Total Cells Counted 100
[2020-03-25 10:27] LABS: Anisocytosis (M) Present; Polychromasia Present
--- NOTE | 2020-03-25 11:30 | P.PN ---
Subjective This is a pleasant 69 years old male with past medical history of hypertension, diabetes mellitus, sleep apnea on BiPAP, skin cancer, blood disease that. With Dr. Whitten and is on hydroxyurea, neuropathy. He is a patient of Dr. Barnes and he was diagnosed with Covid positive test about 3 weeks ago. This time he presents because of dyspnea that is progressively worse. She has also some muscle pain and coughing and generalized weakness. Also she has some upper respiratory symptoms like sore throat with resistant loss of taste and smell. No chest pain. On admission he has fever of 100.4, he is saturating 93% on 3-4 L via nasal cannula, (was 84% on room air ), patient is tachypneic 22-28. Blood pressure is stable. CBC showing unremarkable WBC, hemoglobin is normal, platelets also normal. He has marked microcytosis with MCV of 122. INR is 1.2, d-dimer is elevated at 1.8, rest of BMP and liver enzymes were unremarkable. Ferritin is increased at 2543, lactate dehydrogenase high at 1349 and high C-reactive protein and 27.9. Pro-calcitonin is normal at 0.08 EKG showing normal sinus rhythm at [address]PM with no significant [address]-T changes CTA of the chest showing bilateral patchy pneumonia and infiltrate, no evidence of pulmonary embolism, mediastinal and bronchial lymph nodes are likely inflammatory. And emergency room he received 1 dose of ceftriaxone and 1 L of normal saline. 03/23/2020 Patient is in mild respiratory distress, he thinks he is improving, he is working between the chair in bed with no difficulties. Minimal cough. No chest pain Reason for visit oxygen with saturation 89-90% Follow-up chest x-ray not limited to marker in the morning 03/24/2020 Patient is at the bedside, no respiratory distress, talking easily. He states that his improving gradually. No significant coughing. No significant dyspnea. However his cell noticed to be tachypneic. No chest pain. No GI symptoms. His oxygen requirements went up to 6-9 L/m via nasal cannula Pulmonary team on the case and patient is followed closely by Dr. Hernandez chest x-ray: Chronic changes with persistent left mid to lower lung acute infiltrates felt stable. Worsening right mid lung acute infiltrates. Findings consistent with Covid 19 infection or progression .Continue with treatment as per recommendation by pulmonary team, is currently on dexamethasone, Lovenox also on vitamin C and zinc. Review of systems CONSTITUTIONAL: No fever, no malaise, no fatigue. HEENT: No recent visual problems or hearing problems. Denied any sore throat. CARDIOVASCULAR: No orthopnea, PND, no palpitations, no syncope. PULMONARY: No chest wall tenderness, no hemoptysis. GASTROINTESTINAL: No diarrhea, no nausea, no vomiting, no abdominal pain. Normoa ctive bowel sounds. NEUROLOGICAL: No headaches, no weakness, no numbness. HEMATOLOGICAL: Denies any bleeding or petechiae. Active Medications Acetaminophen (Acetaminophen Tab 325 Mg Tab) Pulmonary team on the case and patient is found closely by Dr. Hernandez, Who ordered inflammatory markers and chest x-ray: Findings consistent with patient's history of pneumonia, progression compared to prior exam .Continue with treatment as per recommendation by pulmonary team, is currently on dexamethasone, Lovenox and remdesivir, also on vitamin C and zinc. Antibiotics were stopped by pulmonary team Hydrocodone Bitart/Acetaminophen (Hydrocodone/Apap 5-325mg 1 Each Tab) 1 each PO Q6H PRN Ascorbic Acid (Ascorbic Acid 500 Mg Tab) 1,000 mg PO DAILY [facility] Aspirin (Aspirin 325 Mg Tab) 325 mg PO DAILY [facility] Cholecalciferol (Cholecalciferol 400 Unit Tab) 400 unit PO DAILY [facility] Dexamethasone (Dexamethasone 2 Mg Tab) 6 mg PO DAILY [facility] Diltiazem HCl (Diltiazem Cd 120 Mg Cap.Er.24h) 120 mg PO BID [facility] Enoxaparin Sodium (Enoxaparin 40 Mg/0.4 Ml Syringe) 40 mg SQ DAILY [facility] Famotidine (Famotidine 20 Mg Tab) 40 mg PO DAILY [facility] Gabapentin (Gabapentin 300 Mg Cap) 300 mg PO HS [facility] Guaifenesin/Dextromethorphan (Guaifenesin-Dm 100-10mg/5ml 10 Ml Cup) 10 ml PO Q8H PRN Hydroxyurea (Hydroxyurea 500 Mg Cap) 500 mg PO QID [facility] Sodium Chloride (Saline 0.9%) 1,000 mls @ 75 mls/hr IV .[id number] [facility] Insulin Aspart (Insulin Aspart (Novolog) 100 Unit/Ml Vial) 0 unit SQ ACHS [facility]; Protocol Melatonin (Melatonin 5 Mg Tablet) 5 mg PO HS [facility] Metoprolol Tartrate (Metoprolol Tartrate 50 Mg Tab) 100 mg PO BID [facility] Naloxone HCl (Naloxone 0.4 Mg/Ml 1 Ml Vial) 0.2 mg IV Q2M PRN Pantoprazole Sodium (Pantoprazole 40 Mg/10 Ml Vial) 40 mg IVP DAILY [facility] Pioglitazone HCl (Pioglitazone 15 Mg Tab) 15 mg PO DAILY [facility]ATT Ropinirole HCl (Ropinirole Hcl 1 Mg Tab) 3 mg PO QID [facility] Zinc Sulfate (Zinc Sulfate 220 Mg Cap) 220 mg PO DAILY [facility] Objective - Vital Signs Vital signs: Vital Signs Temp 97.4 F L 03/24/20 14:08 Pulse 89 03/24/20 14:08 Resp 22 03/24/20 14:08 BP 142/78 03/24/20 14:08 Pulse Ox 90 L 03/24/20 14:08 Intake & Output 03/23/20 03/24/20 03/24/20 18:59 06:59 18:59 Intake Total 1430 Balance 1430 Intake: Intake, IV Titration 1430 Amount Sodium Chloride 0.9% 1, 1430 000 ml @ 130 mls/hr IV . Q7H42M [facility] Rx#:[id number] Other: # Voids 0 # Bowel Movements 0 - Exam GENERAL: The patient is alert and oriented x3, not in any acute distress. Well developed, well nourished. HEENT: Pupils are round and equally reacting to light. EOMI. No scleral icterus. No conjunctival pallor. Normocephalic, atraumatic. No pharyngeal erythema. No thyromegaly. CARDIOVASCULAR: S1 and S2 present. No murmurs, rubs, or gallops. -PULMONARY: Chest is clear to auscultation, no wheezing. Bilateral regurgitation and decreased breath sounds ABDOMEN: Soft, nontender, nondistended, normoactive bowel sounds. No palpable organomegaly. MUSCULOSKELETAL: No joint swelling or deformity. EXTREMITIES: No cyanosis, clubbing, or pedal edema. NEUROLOGICAL: Gross neurological examination did not reveal any focal deficits. SKIN: No rashes. No petechiae - Labs CBC & Chem 7: 03/25/20 08:59 03/25/20 08:59 Labs: Abnormal Lab Results - Last 24 Hours (Table) 03/23/20 03/23/20 03/23/20 Range/Units 17:05 19:55 23:30 D-Dimer (<0.60) mg/L FEU POC Glucose (mg/dL) 297 H 233 H 220 H (75-99) mg/dL 03/24/20 03/24/20 03/24/20 Range/Units 07:00 08:39 11:49 D-Dimer 0.71 H (<0.60) mg/L FEU POC Glucose (mg/dL) 197 H 239 H (75-99) mg/dL Microbiology - Last 24 Hours (Table) 03/21/20 15:16 Blood Culture - Preliminary Blood No Growth after 48 hours Assessment and Plan Assessment: Bilateral Covid pneumonia acute hypoxic respiratory failure secondary to above Increase inflammatory markers secondary to above Diabetes mellitus Hypertension Sleep apnea on BiPAP Blood Dyscrasia on hydroxyurea and follow-up with Dr. Whitten History of neuropathy Plan: This is a pleasant 69 years old male who presents with bilateral Covid pneumonia. Continue with ascorbic acid and zinc, Lovenox. Continue with dexamethasone. Follow-up inflammatory markers. Consult pulmonary service Labs and medication were reviewed.. Continue same treatment. Continue with symptomatic treatment. Resume home medication. Monitor lytes and vitals. DVT and GI prophylaxis. Further recommendations depends on the clinical course of the patient DVT prophylaxis: Subcutaneous Lovenox GI Prophylaxis: Ppi Prognosis is guarded
[2020-03-25 12:46] LABS: Glucose,Whole Blood 276 mg/dL (75-99)
--- NOTE | 2020-03-25 13:10 | P.PN ---
Subjective Progress Note Date: 03/25/20 Principal diagnosis: CoVID 19 infection The patient is seen today 03/23/2020 in follow-up on the regular medical floor. He was seen in consultation yesterday by Dr. Hernandez. He is found to have cold 19 infection. His symptoms started 3 weeks ago. He was positive on 03/10/2020. He was managing at home until the last few days he was getting more short of breath with cough congestion fever weakness. He presented to hospital for the same. Today he is feeling a bit better. He is sitting up in a chair at the bedside. He is maintaining O2 saturation in the low 90s on 2 L/m per nasal cannula. He is afebrile. Hemodynamically stable. He is continued on Decadron, Lovenox, Pepcid, vitamin C, vitamin D, zinc. The patient is seen today 03/24/2020 in follow-up on the regular medical floor. He is currently sitting up in a chair at the bedside. Awake and alert in no acute distress. He is maintaining O2 saturation in low 90s on 6 L high flow nasal cannula. He is currently afebrile. D-dimer 0.71. Chest x-ray reveals chronic changes with persistent left mid and lower lung infiltrates with worsening right midlung infiltrate. He remains on dexamethasone, Lovenox, vi tamin C, vitamin D, Pepcid, zinc. The patient is seen today 03/25/2020 in follow-up on the regular medical floor. He is currently sitting up in bed. Awake and alert in no acute distress. Maintaining O2 saturation in the 90s on 6 L high flow nasal cannula. Afebrile. Hemodynamically stable. Blood culture reveals no growth. White count 6.3. Hemoglobin 14.7. D-dimer 0.68. Sodium 138. Potassium 5.4. Creatinine 0.83. LDH 1140. C-reactive protein 18.6. He remains on Decadron, Lovenox, vitamin supplements. Objective - Vital Signs Vital signs: Vital Signs Temp 97.5 F L 03/25/20 11:00 Pulse 55 L 03/25/20 11:00 Resp 18 03/25/20 11:00 BP 108/66 03/25/20 11:00 Pulse Ox 90 L 03/25/20 11:00 Intake & Output 03/24/20 03/25/20 03/25/20 18:59 06:59 18:59 Intake Total 2089 Balance 2089 Intake: Intake, IV Titration 900 Amount Sodium Chloride 0.9% 1, 900 000 ml @ 75 mls/hr IV . [id number] [facility] Rx#:[id number] Oral 1190 Other: # Voids 1 2 - Exam GENERAL EXAM: Alert, pleasant 69-year-old gentleman, currently resting in bed, on 6 L nasal cannula, comfortable in no apparent distress. HEAD: Normocephalic. EYES: Normal reaction of pupils, equal size. NOSE: Clear with pink turbinates. THROAT: No erythema or exudates. NECK: No masses, no JVD. CHEST: No chest wall deformity. LUNGS: Equal air entry with coarse scattered rhonchi bilaterally. CVS: S1 and S2 normal with no audible murmur, regular rhythm. ABDOMEN: No hepatosplenomegaly, normal bowel sounds, no guarding or rigidity. SPINE: No scoliosis or deformity SKIN: No rashes CENTRAL NERVOUS SYSTEM: No focal deficits, tone is normal in all 4 extremities. EXTREMITIES: There is no peripheral edema. No clubbing, no cyanosis. Peripheral pulses are intact. - Labs CBC & Chem 7: 03/25/20 08:59 03/25/20 08:59 Labs: Abnormal Lab Results - Last 24 Hours (Table) 03/24/20 03/24/20 03/24/20 Range/Units 08:39 17:00 20:04 RBC (4.30-5.90) m/uL MCV (80.0-100.0) fL MCH (25.0-35.0) pg Macrocytosis D-Dimer (<0.60) mg/L FEU Potassium (3.5-5.1) mmol/L Carbon Dioxide (22-30) mmol/L BUN (9-20) mg/dL Glucose (74-99) mg/dL POC Glucose (mg/dL) 240 H 331 H (75-99) mg/dL Calcium (8.4-10.2) mg/dL Ferritin 1813.8 H (22.0-322.0) ng/mL Lactate Dehydrogenase 463 H (120-246) U/L C-Reactive Protein 2.5 H (0.0-0.8) mg/dL 03/25/20 03/25/20 03/25/20 Range/Units 07:25 08:59 08:59 RBC 3.56 L (4.30-5.90) m/uL MCV 122.2 H (80.0-100.0) fL MCH 41.3 H (25.0-35.0) pg Macrocytosis Marked A D-Dimer 0.68 H (<0.60) mg/L FEU Potassium (3.5-5.1) mmol/L Carbon Dioxide (22-30) mmol/L BUN (9-20) mg/dL Glucose (74-99) mg/dL POC Glucose (mg/dL) 197 H (75-99) mg/dL Calcium (8.4-10.2) mg/dL Ferritin (22.0-322.0) ng/mL Lactate Dehydrogenase (120-246) U/L C-Reactive Protein (0.0-0.8) mg/dL 03/25/20 03/25/20 Range/Units 08:59 12:46 RBC (4.30-5.90) m/uL MCV (80.0-100.0) fL MCH (25.0-35.0) pg Macrocytosis D-Dimer (<0.60) mg/L FEU Potassium 5.4 H (3.5-5.1) mmol/L Carbon Dioxide 31 H (22-30) mmol/L BUN 22 H (9-20) mg/dL Glucose 243 H (74-99) mg/dL POC Glucose (mg/dL) 276 H (75-99) mg/dL Calcium 8.3 L (8.4-10.2) mg/dL Ferritin (22.0-322.0) ng/mL Lactate Dehydrogenase 1140 H (120-246) U/L C-Reactive Protein 18.6 H (0.0-0.8) mg/dL Microbiology - Last 24 Hours (Table) 03/21/20 15:16 Blood Culture - Preliminary Blood No Growth after 72 hours Assessment and Plan Assessment: 1 Acute hypoxemic respiratory failure secondary to CoVID 19 pneumonitis, tested positive 03/10/2020, outside of the window for Remdesivir 2 History of skin cancer 3 Diabetes mellitus 4 Diabetic neuropathy 5 Hypertension 6 Obstructive sleep apnea, currently on CPAP 7 Degenerative joint disease 8 Diverticular disease 9 Polycythemia rubra vera, on hydroxyurea Plan: The patient was seen and evaluated by Dr. Hernandez Currently stable from the pulmonary standpoint Continue current treatment plan Titrate down the FiO2 as tolerated We will continue to follow and make further recommendations based on his clinical status I, the cosigning physician, performed a history & physical examination of the patient. Lungs sounds with bilateral scattered rhonchi. Maintaining good O2 saturations in the 90s on 6 L/m per nasal cannula. I discussed the assessment and plan of care with my nurse practitioner, Betty Davis. I attest to the above note as dictated by her.
[2020-03-25 17:34] LABS: Glucose,Whole Blood 324 mg/dL (75-99)
[2020-03-25 18:38] LABS: Ferritin 1637.7 ng/mL (22.0-322.0)
[2020-03-25 20:17] LABS: Glucose,Whole Blood 265 mg/dL (75-99)
[2020-03-25] MEDS: GABAPENTIN 300 MG CAP PO SCH (20:29)
[2020-03-25] MEDS: MELATONIN 5 MG TABLET PO SCH (20:29)
[2020-03-26 07:12] LABS: Glucose,Whole Blood 272 mg/dL (75-99)
[2020-03-26 08:35] LABS: Basophils % (A) 0 %; Eosinophils % (A) 0 %; HCT 43.9 % (39.0-53.0); HGB 14.2 gm/dL (13.0-17.5); Lymphocytes # (A) 1.2 k/uL (1.0-4.8); Lymphocytes % (A) 20 %; MCH 40.6 pg (25.0-35.0); MCHC 32.3 g/dL (31.0-37.0); MCV 125.4 fL (80.0-100.0); Macrocytosis Marked; Mean Platelet Volume 8.9; Monocytes # (A) 0.1 k/uL (0-1.0); Monocytes % (A) 1 %; Neutrophils # (A) 4.5 k/uL (1.3-7.7); Neutrophils % (A) 75 %; Platelet Count 322 k/uL (150-450); RDW 12.7 % (11.5-15.5)
[2020-03-26] MEDS: ASCORBIC ACID 500 MG TAB PO SCH (08:38)
[2020-03-26] MEDS: INSULIN ASPART (NovoLOG) 100 UNIT/ML VIAL SQ SCH ×4 (08:38→22:11)
[2020-03-26] MEDS: dexAMETHasone 2 MG TAB PO SCH (08:38)
[2020-03-26] MEDS: METOPROLOL TARTRATE 50 MG TAB PO SCH ×2 (08:39→21:49)
[2020-03-26] MEDS: PANTOPRAZOLE 40 MG/10 ML VIAL IVP SCH (08:39)
[2020-03-26] MEDS: ASPIRIN 325 MG TAB PO SCH (08:39)
[2020-03-26] MEDS: FAMOTIDINE 20 MG TAB PO SCH (08:39)
[2020-03-26] MEDS: ZINC SULFATE 220 MG CAP PO SCH (08:39)
[2020-03-26] MEDS: HYDROXYUREA 500 MG CAP PO SCH ×4 (08:40→22:10)
[2020-03-26] MEDS: DILTIAZEM CD 120 MG CAP.ER.24H PO SCH ×2 (08:40→22:11)
[2020-03-26] MEDS: PIOGLITAZONE 15 MG TAB PO SCH (08:40)
[2020-03-26] MEDS: CHOLECALCIFEROL 400 UNIT TAB PO SCH (08:40)
[2020-03-26] MEDS: ENOXAPARIN 40 MG/0.4 ML SYRINGE SQ SCH (08:41)
[2020-03-26 09:02] LABS: Anisocytosis (M) Present
[2020-03-26 11:31] LABS: Glucose,Whole Blood 262 mg/dL (75-99)
--- NOTE | 2020-03-26 13:47 | P.PN ---
Subjective Progress Note Date: 03/26/20 Principal diagnosis: CoVID 19 infection The patient is seen today 03/23/2020 in follow-up on the regular medical floor. He was seen in consultation yesterday by Dr. Hernandez. He is found to have cold 19 infection. His symptoms started 3 weeks ago. He was positive on 03/10/2020. He was managing at home until the last few days he was getting more short of breath with cough congestion fever weakness. He presented to hospital for the same. Today he is feeling a bit better. He is sitting up in a chair at the bedside. He is maintaining O2 saturation in the low 90s on 2 L/m per nasal cannula. He is afebrile. Hemodynamically stable. He is continued on Decadron, Lovenox, Pepcid, vitamin C, vitamin D, zinc. The patient is seen today 03/24/2020 in follow-up on the regular medical floor. He is currently sitting up in a chair at the bedside. Awake and alert in no acute distress. He is maintaining O2 saturation in low 90s on 6 L high flow nasal cannula. He is currently afebrile. D-dimer 0.71. Chest x-ray reveals chronic changes with persistent left mid and lower lung infiltrates with worsening right midlung infiltrate. He remains on dexamethasone, Lovenox, vi tamin C, vitamin D, Pepcid, zinc. The patient is seen today 03/25/2020 in follow-up on the regular medical floor. He is currently sitting up in bed. Awake and alert in no acute distress. Maintaining O2 saturation in the 90s on 6 L high flow nasal cannula. Afebrile. Hemodynamically stable. Blood culture reveals no growth. White count 6.3. Hemoglobin 14.7. D-dimer 0.68. Sodium 138. Potassium 5.4. Creatinine 0.83. LDH 1140. C-reactive protein 18.6. He remains on Decadron, Lovenox, vitamin supplements. The patient is seen today 03/26/2020 in follow-up on the regular medical floor. He is awake and alert in no acute distress. Sitting up at the bedside. Maintaining O2 saturation in the 90s on 2 L/m per nasal cannula. He did desaturate into the 70s when trialed on room air. He is currently afebrile. White count 6.0. Hemoglobin 14.2. Platelet count 322. Receiving 0.9 normal saline at 75 ML's per hour. Continued on Lovenox, dexamethasone, vitamin supplements. Objective - Vital Signs Vital signs: Vital Signs Temp 97.6 F 03/26/20 11:00 Pulse 56 L 03/26/20 11:00 Resp 16 03/26/20 11:00 BP 137/77 03/26/20 11:00 Pulse Ox 94 L 03/26/20 12:26 Intake & Output 03/25/20 03/26/20 03/26/20 18:59 06:59 18:59 Intake Total 950 Balance 950 Intake: Oral 950 Other: # Voids 2 - Exam GENERAL EXAM: Alert, pleasant 69-year-old gentleman, currently resting in bed, on 2 L nasal cannula, comfortable in no apparent distress. HEAD: Normocephalic. EYES: Normal reaction of pupils, equal size. NOSE: Clear with pink turbinates. THROAT: No erythema or exudates. NECK: No masses, no JVD. CHEST: No chest wall deformity. LUNGS: Equal air entry with coarse scattered rhonchi bilaterally. CVS: S1 and S2 normal with no audible murmur, regular rhythm. ABDOMEN: No hepatosplenomegaly, normal bowel sounds, no guarding or rigidity. SPINE: No scoliosis or deformity SKIN: No rashes CENTRAL NERVOUS SYSTEM: No focal deficits, tone is normal in all 4 extremities. EXTREMITIES: There is no peripheral edema. No clubbing, no cyanosis. Sona pheral pulses are intact. - Labs CBC & Chem 7: 03/26/20 07:52 03/25/20 08:59 Labs: Abnormal Lab Results - Last 24 Hours (Table) 03/25/20 03/25/20 03/25/20 Range/Units 08:59 17:33 20:15 RBC (4.30-5.90) m/uL MCV (80.0-100.0) fL MCH (25.0-35.0) pg Macrocytosis POC Glucose (mg/dL) 324 H 265 H (75-99) mg/dL Ferritin 1637.7 H (22.0-322.0) ng/mL 03/26/20 03/26/20 03/26/20 Range/Units 07:11 07:52 11:30 RBC 3.50 L (4.30-5.90) m/uL MCV 125.4 H (80.0-100.0) fL MCH 40.6 H (25.0-35.0) pg Macrocytosis Marked A POC Glucose (mg/dL) 272 H 262 H (75-99) mg/dL Ferritin (22.0-322.0) ng/mL Microbiology - Last 24 Hours (Table) 03/21/20 15:16 Blood Culture - Preliminary Blood No Growth after 96 hours Assessment and Plan Assessment: 1 Acute hypoxemic respiratory failure secondary to CoVID 19 pneumonitis, tested positive 03/10/2020, outside of the window for Remdesivir 2 History of skin cancer 3 Diabetes mellitus 4 Diabetic neuropathy 5 Hypertension 6 Obstructive sleep apnea, currently on CPAP 7 Degenerative joint disease 8 Diverticular disease 9 Polycythemia rubra vera, on hydroxyurea Plan: The patient was seen and evaluated by Dr. Hernandez Continue current treatment plan Titrate down the FiO2 as tolerated Repeat chest x-ray and inflammatory markers in a.m. We will continue to follow and make further recommendations based on his clinical status I, the cosigning physician, performed a history & physical examination of the patient. Lungs sounds with bilateral scattered rhonchi. Maintaining good O2 saturations in the 90s on 2 L/m per nasal cannula. I discussed the assessment and plan of care with my nurse practitioner, Betty Davis. I attest to the above note as dictated by her.
[2020-03-26 17:03] LABS: Glucose,Whole Blood 238 mg/dL (75-99)
[2020-03-26] MEDS: SODIUM CHLORIDE 0.9% 1,000 ML IV SCH ×2 (18:08→22:12)
[2020-03-26 20:12] LABS: Glucose,Whole Blood 325 mg/dL (75-99)
[2020-03-26] MEDS: GABAPENTIN 300 MG CAP PO SCH (22:10)
[2020-03-26] MEDS: MELATONIN 5 MG TABLET PO SCH (22:10)
[2020-03-27] MEDS: SODIUM CHLORIDE 0.9% 1,000 ML IV SCH (05:42)
[2020-03-27 07:10] LABS: Glucose,Whole Blood 204 mg/dL (75-99)
[2020-03-27] MEDS: INSULIN ASPART (NovoLOG) 100 UNIT/ML VIAL SQ SCH ×4 (08:11→20:49)
[2020-03-27] MEDS: ZINC SULFATE 220 MG CAP PO SCH (08:11)
[2020-03-27] MEDS: FAMOTIDINE 20 MG TAB PO SCH (08:11)
[2020-03-27] MEDS: ASCORBIC ACID 500 MG TAB PO SCH (08:12)
[2020-03-27] MEDS: PANTOPRAZOLE 40 MG/10 ML VIAL IVP SCH (08:12)
[2020-03-27] MEDS: ASPIRIN 325 MG TAB PO SCH (08:12)
[2020-03-27] MEDS: PIOGLITAZONE 15 MG TAB PO SCH (08:12)
[2020-03-27] MEDS: dexAMETHasone 2 MG TAB PO SCH (08:12)
[2020-03-27] MEDS: ENOXAPARIN 40 MG/0.4 ML SYRINGE SQ SCH (08:12)
[2020-03-27] MEDS: CHOLECALCIFEROL 400 UNIT TAB PO SCH (08:13)
[2020-03-27] MEDS: DILTIAZEM CD 120 MG CAP.ER.24H PO SCH ×2 (08:13→20:49)
[2020-03-27] MEDS: HYDROXYUREA 500 MG CAP PO SCH ×4 (08:14→20:49)
[2020-03-27] MEDS: METOPROLOL TARTRATE 50 MG TAB PO SCH ×2 (08:14→20:49)
--- NOTE | 2020-03-27 09:09 | XR ---
EXAMINATION TYPE: XR chest 1V portable DATE OF EXAM: 03/27/2020 CLINICAL HISTORY: Difficulty breathing and covid pneumonitis progress study. TECHNIQUE: Single AP portable upright view of the chest is obtained. COMPARISON: Chest x-ray from [address] chest 6 days ago. FINDINGS: Elevated right hemidiaphragm redemonstrated. Background chronic emphysematous change with persistent left mid to lower opacities. Persistent more diffuse right lung opacities, continued progr ession upper lung from most recent prior. Cardiac silhouette size is stable and mildly enlarged with persistent silhouetting left heart border. Cholecystectomy clips incidentally noted. Spinal stimulato r device lower thoracic spinal canal redemonstrated. IMPRESSION: Chronic changes with persistent bilateral acute infiltrates felt slight worsening in the right upper lung from most recent prior. Findings consistent with covid-19 infection progression.
[2020-03-27 09:58] LABS: African American GFR (CKD) 106.4 (60.0-200.0); Anion Gap 5.4 mmol/L (4.00-12.00); BUN/Creat Ratio 26.25 Ratio (12.00-20.00); C Reactive Protein 0.4 mg/dL (0.0-0.8); Calcium 8.3 mg/dL (8.7-10.3); Carbon Dioxide 30.6 mmol/L (21.6-31.8); Ferritin 1582.3 ng/mL (22.0-322.0); Non-African American GFR(CKD) 91.8 (60.0-200.0); Potassium 5.3 mmol/L (3.5-5.5)
[2020-03-27 12:07] LABS: Glucose,Whole Blood 323 mg/dL (75-99)
--- NOTE | 2020-03-27 14:14 | P.PN ---
Subjective Progress Note Date: 03/25/20 Principal diagnosis: Bilateral Covid pneumonia Mr. Koehler is a 69 years old male with past medical history of hypertension, diabetes mellitus, sleep apnea on BiPAP, skin cancer, blood disease that. With Dr. Whitten and is on hydroxyurea, neuropathy. He is a patient of Dr. Barnes and he was diagnosed with Covid positive test about 3 weeks ago. This time he presents because of dyspnea that is progressively worse. He has also some muscle pain and coughing and generalized weakness. Also he has some upper respiratory symptoms like sore throat with resistant loss of taste and smell. No chest pain. On admission he has fever of 100.4, he is saturating 93% on 3-4 L via nasal cannula, (was 84% on room air ), patient is tachypneic 22-28. Blood pressure is stable. CBC showing unremarkable WBC, hemoglobin is normal, platelets also normal. He has marked microcytosis with MCV of 122. INR is 1.2, d-dimer is elevated at 1.8, rest of BMP and liver enzymes were unremarkable. Ferritin is increased at 2543, lactate dehydrogenase high at 1349 and high C-reactive protein and 27.9. Pro-calcitonin is normal at 0.08. EKG showing normal sinus rhythm at 99 BPM with no significant ST-T changes. CTA of the chest showing bilateral patchy pneumonia and infiltrate, no evidence of pulmonary embolism, mediastinal and bronchial lymph nodes are likely inflammatory. On 03/25/2020- patient is sitting up in a chair by the bedside and on high flow oxygen. He states that he wants to go. Patient denies having any complaints of chest pain or palpitations. No abdominal pain pain nausea vomiting or diarrhea. On reviewing patient's vitals his been afebrile, blood pressure within normal limits. Her cultures showed no growth to date. He is saturating at low 90s on 6 L of high flow oxygen. Active Medications Acetaminophen (Acetaminophen Tab 325 Mg Tab) 650 mg PO Q4HR PRN PRN Reason: Fever>101 Last Admin: 03/22/20 02:39 Dose: 650 mg Documented by: Hydrocodone Bitart/Acetaminophen (Hydrocodone/Apap 5-325mg 1 Each Tab) 1 each PO Q6H PRN PRN Reason: Pain Ascorbic Acid (Ascorbic Acid 500 Mg Tab) 1,000 mg PO DAILY [facility] Last Admin: 03/25/20 09:43 Dose: 1,000 mg Documented by: Aspirin (Aspirin 325 Mg Tab) 325 mg PO DAILY [facility] Last Admin: 03/25/20 09:42 Dose: 325 mg Documented by: Cholecalciferol (Cholecalciferol 400 Unit Tab) 400 unit PO DAILY [facility] Last Admin: 03/25/20 09:45 Dose: 400 unit Documented by: Dexamethasone (Dexamethasone 2 Mg Tab) 6 mg PO DAILY [facility] Last Admin: 03/25/20 09:42 Dose: 6 mg Documented by: Diltiazem HCl (Diltiazem Cd 120 Mg Cap.Er.24h) 120 mg PO BID [facility] Last Admin: 03/25/20 09:45 Dose: 120 mg Documented by: Enoxaparin Sodium (Enoxaparin 40 Mg/0.4 Ml Syringe) 40 mg SQ DAILY [facility] Last Admin: 03/25/20 09:45 Dose: 40 mg Documented by: Famotidine (Famotidine 20 Mg Tab) 40 mg PO DAILY [facility] Last Admin: 03/25/20 09:42 Dose: 40 mg Documented by: Gabapentin (Gabapentin 300 Mg Cap) 300 mg PO [facility] Last Admin: 03/24/20 20:32 Dose: 300 mg Documented by: Guaifenesin/Dextromethorphan (Guaifenesin-Dm 100-10mg/5ml 10 Ml Cup) 10 ml PO Q8H PRN PRN Reason: Cough Last Admin: 03/22/20 09:00 Dose: 10 ml Documented by: Hydroxyurea (Hydroxyurea 500 Mg Cap) 500 mg PO QID [facility] Last Admin: 03/25/20 09:44 Dose: 500 mg Documented by: Sodium Chloride (Saline 0.9%) 1,000 mls @ 75 mls/hr IV .[id number] [facility] Last Admin: 03/25/20 09:51 Dose: 75 mls/hr Documented by: Insulin Aspart (Insulin Aspart (Novolog) 100 Unit/Ml Vial) 0 unit SQ [facility]; Protocol Last Admin: 03/25/20 09:41 Dose: 4 unit Documented by: Melatonin (Melatonin 5 Mg Tablet) 5 mg PO [facility] Last Admin: 03/24/20 20:32 Dose: 5 mg Documented by: Metoprolol Tartrate (Metoprolol Tartrate 50 Mg Tab) 100 mg PO BID [facility] Last Admin: 03/25/20 09:42 Dose: 100 mg Documented by: Naloxone HCl (Naloxone 0.4 Mg/Ml 1 Ml Vial) 0.2 mg IV Q2M PRN PRN Reason: Opioid Reversal Pantoprazole Sodium (Pantoprazole 40 Mg/10 Ml Vial) 40 mg IVP DAILY [facility] Last Admin: 03/25/20 09:43 Dose: 40 mg Documented by: Pioglitazone HCl (Pioglitazone 15 Mg Tab) 15 mg PO DAILY [facility] Last Admin: 03/25/20 09:45 Dose: 15 mg Documented by: Ropinirole HCl (Ropinirole Hcl 1 Mg Tab) 3 mg PO QID [facility] Last Admin: 03/25/20 09:44 Dose: 3 mg Documented by: Zinc Sulfate (Zinc Sulfate 220 Mg Cap) 220 mg PO DAILY [facility] Last Admin: 03/25/20 09:43 Dose: 220 mg Documented by: Objective - Vital Signs Vital signs: Vital Signs Temp 98.1 F 03/25/20 05:00 Pulse 54 L 03/25/20 08:00 Resp 16 03/25/20 08:00 BP 116/72 03/25/20 05:00 Pulse Ox 88 L 03/25/20 05:00 Intake & Output 03/24/20 03/25/20 03/25/20 18:59 06:59 18:59 Intake Total 2089 Balance 2089 Intake: Intake, IV Titration 900 Amount Sodium Chloride 0.9% 1, 900 000 ml @ 75 mls/hr IV . [id number] [facility] Rx#:[id number] Oral 1190 Other: # Voids 1 2 - Exam PHYSICAL EXAM GENERAL: The patient is alert and oriented x3, not in any acute distress. Well developed, well nourished. HEENT: Pupils are round and equally reacting to light. No conjunctival pallor. CARDIOVASCULAR: S1 and S2 present. No murmurs, rubs, or gallops. -PULMONARY: Chest is clear to auscultation, no wheezing. Bilateral decreased breath sounds at the base ABDOMEN: Soft, nontender, nondistended, normoactive bowel sounds. No palpable organomegaly. MUSCULOSKELETAL: No joint swelling or deformity. EXTREMITIES: No cyanosis, clubbing, or pedal edema. NEUROLOGICAL: Gross neurological examination did not reveal any focal deficits. SKIN: No rashes. No petechiae - Labs CBC & Chem 7: 03/26/20 07:52 03/27/20 06:05 Labs: Abnormal Lab Results - Last 24 Hours (Table) 03/24/20 03/24/20 03/24/20 Range/Units 08:39 17:00 20:04 RBC (4.30-5.90) m/uL MCV (80.0-100.0) fL MCH (25.0-35.0) pg Macrocytosis D-Dimer (<0.60) mg/L FEU Potassium (3.5-5.1) mmol/L Carbon Dioxide (22-30) mmol/L BUN (9-20) mg/dL Glucose (74-99) mg/dL POC Glucose (mg/dL) 240 H 331 H (75-99) mg/dL Calcium (8.4-10.2) mg/dL Ferritin 1813.8 H (22.0-322.0) ng/mL Lactate Dehydrogenase 463 H (120-246) U/L C-Reactive Protein 2.5 H (0.0-0.8) mg/dL 03/25/20 03/25/20 03/25/20 Range/Units 07:25 08:59 08:59 RBC 3.56 L (4.30-5.90) m/uL MCV 122.2 H (80.0-100.0) fL MCH 41.3 H (25.0-35.0) pg Macrocytosis Marked A D-Dimer 0.68 H (<0.60) mg/L FEU Potassium (3.5-5.1) mmol/L Carbon Dioxide (22-30) mmol/L BUN (9-20) mg/dL Glucose (74-99) mg/dL POC Glucose (mg/dL) 197 H (75-99) mg/dL Calcium (8.4-10.2) mg/dL Ferritin (22.0-322.0) ng/mL Lactate Dehydrogenase (120-246) U/L C-Reactive Protein (0.0-0.8) mg/dL 03/25/20 Range/Units 08:59 RBC (4.30-5.90) m/uL MCV (80.0-100.0) fL MCH (25.0-35.0) pg Macrocytosis D-Dimer (<0.60) mg/L FEU Potassium 5.4 H (3.5-5.1) mmol/L Carbon Dioxide 31 H (22-30) mmol/L BUN 22 H (9-20) mg/dL Glucose 243 H (74-99) mg/dL POC Glucose (mg/dL) (75-99) mg/dL Calcium 8.3 L (8.4-10.2) mg/dL Ferritin (22.0-322.0) ng/mL Lactate Dehydrogenase 1140 H (120-246) U/L C-Reactive Protein 18.6 H (0.0-0.8) mg/dL Microbiology - Last 24 Hours (Table) 03/21/20 15:16 Blood Culture - Preliminary Blood No Growth after 72 hours Assessment and Plan Assessment: ASSESSMENT Bilateral Covid pneumonia acute hypoxic respiratory failure secondary to above Increase inflammatory markers secondary to above Diabetes mellitus Hypertension Sleep apnea on BiPAP Blood Dyscrasia on hydroxyurea and follow-up with Dr. Whitten History of neuropathy Plan: This is a pleasant 69 years old male who presents with bilateral Covid pneumonia. Continue with dexamethasone. Follow-up inflammatory markers.Continue with ascorbic acid and zinc, Lovenox. Pulmonary service following. Continue with symptomatic treatment. Resumed on home medication. Monitor lytes and vitals. DVT and GI prophylaxis. Further recommendations depends on the clinical course of the patient. Prognosis is guarded
--- NOTE | 2020-03-27 14:18 | P.PN ---
Subjective Progress Note Date: 03/26/20 Principal diagnosis: Bilateral Covid pneumonia Mr. Koehler is a 69 years old male with past medical history of hypertension, diabetes mellitus, sleep apnea on BiPAP, skin cancer, blood disease that. With Dr. Whitten and is on hydroxyurea, neuropathy. He is a patient of Dr. Barnes and he was diagnosed with Covid positive test about 3 weeks ago. This time he presents because of dyspnea that is progressively worse. He has also some muscle pain and coughing and generalized weakness. Also he has some upper respiratory symptoms like sore throat with resistant loss of taste and smell. No chest pain. On admission he has fever of 100.4, he is saturating 93% on 3-4 L via nasal cannula, (was 84% on room air ), patient is tachypneic 22-28. Blood pressure is stable. CBC showing unremarkable WBC, hemoglobin is normal, platelets also normal. He has marked microcytosis with MCV of 122. INR is 1.2, d-dimer is elevated at 1.8, rest of BMP and liver enzymes were unremarkable. Ferritin is increased at 2543, lactate dehydrogenase high at 1349 and high C-reactive protein and 27.9. Pro-calcitonin is normal at 0.08. EKG showing normal sinus rhythm at 99 BPM with no significant ST-T changes. CTA of the chest showing bilateral patchy pneumonia and infiltrate, no evidence of pulmonary embolism, mediastinal and bronchial lymph nodes are likely inflammatory. On 03/25/2020- patient is sitting up in a chair by the bedside and on high flow oxygen. He states that he wants to go. Patient denies having any complaints of chest pain or palpitations. No abdominal pain pain nausea vomiting or diarrhea. On reviewing patient's vitals his been afebrile, blood pressure within normal limits. Her cultures showed no growth to date. He is saturating at low 90s on 6 L of high flow oxygen. On - patient is sitting up in the bed appears to be in no acute distress. He states that his breathing is Getting better gradually. Denies having any chest pain or palpitations. Abdominal pain nausea vomiting or diarrhea. No dysuria or hematuria. On reviewing her vitals patient has been afebrile, saturating at night. On 2 L of nasal cannula. On reviewing his labs white count of 6, hemoglobin 14.2, platelets 322. Active Medications Acetaminophen (Acetaminophen Tab 325 Mg Tab) 650 mg PO Q4HR PRN PRN Reason: Fever>101 Last Admin: 03/22/20 02:39 Dose: 650 mg Documented by: Hydrocodone Bitart/Acetaminophen (Hydrocodone/Apap 5-325mg 1 Each Tab) 1 each PO Q6H PRN PRN Reason: Pain Ascorbic Acid (Ascorbic Acid 500 Mg Tab) 1,000 mg PO DAILY [facility] Last Admin: 03/26/20 08:38 Dose: 1,000 mg Documented by: Aspirin (Aspirin 325 Mg Tab) 325 mg PO DAILY [facility] Last Admin: 03/26/20 08:39 Dose: 325 mg Documented by: Cholecalciferol (Cholecalciferol 400 Unit Tab) 400 unit PO DAILY [facility] Last Admin: 03/26/20 08:40 Dose: 400 unit Documented by: Dexamethasone (Dexamethasone 2 Mg Tab) 6 mg PO DAILY [facility] Last Admin: 03/26/20 08:38 Dose: 6 mg Documented by: Diltiazem HCl (Diltiazem Cd 120 Mg Cap.Er.24h) 120 mg PO BID [facility] Last Admin: 03/26/20 22:11 Dose: 120 mg Documented by: Enoxaparin Sodium (Enoxaparin 40 Mg/0.4 Ml Syringe) 40 mg SQ DAILY [facility] Last Admin: 03/26/20 08:41 Dose: 40 mg Documented by: Famotidine (Famotidine 20 Mg Tab) 40 mg PO DAILY [facility] Last Admin: 03/26/20 08:39 Dose: 40 mg Documented by: Gabapentin (Gabapentin 300 Mg Cap) 300 mg PO HS [facility] Last Admin: 03/26/20 22:10 Dose: 300 mg Documented by: Guaifenesin/Dextromethorphan (Guaifenesin-Dm 100-10mg/5ml 10 Ml Cup) 10 ml PO Q8H PRN PRN Reason: Cough Last Admin: 03/22/20 09:00 Dose: 10 ml Documented by: Hydroxyurea (Hydroxyurea 500 Mg Cap) 500 mg PO QID [facility] Last Admin: 03/26/20 22:10 Dose: 500 mg Documented by: Sodium Chloride (Saline 0.9%) 1,000 mls @ 75 mls/hr IV .[id number] [facility] Last Admin: 03/26/20 22:12 Dose: Not Given Documented by: Insulin Aspart (Insulin Aspart (Novolog) 100 Unit/Ml Vial) 0 unit SQ ACHS [facility]; Protocol Last Admin: 03/26/20 22:11 Dose: 5 unit Documented by: Melatonin (Melatonin 5 Mg Tablet) 5 mg PO HS [facility] Last Admin: 03/26/20 22:10 Dose: 5 mg Documented by: Metoprolol Tartrate (Metoprolol Tartrate 50 Mg Tab) 100 mg PO BID [facility] Last Admin: 03/26/20 21:49 Dose: Not Given Documented by: Naloxone HCl (Naloxone 0.4 Mg/Ml 1 Ml Vial) 0.2 mg IV Q2M PRN PRN Reason: Opioid Reversal Pantoprazole Sodium (Pantoprazole 40 Mg/10 Ml Vial) 40 mg IVP DAILY [facility] Last Admin: 03/26/20 08:39 Dose: 40 mg Documented by: Pioglitazone HCl (Pioglitazone 15 Mg Tab) 15 mg PO DAILY [facility] Last Admin: 03/26/20 08:40 Dose: 15 mg Documented by: Ropinirole HCl (Ropinirole Hcl 1 Mg Tab) 3 mg PO QID [facility] Last Admin: 03/26/20 22:11 Dose: 3 mg Documented by: Zinc Sulfate (Zinc Sulfate 220 Mg Cap) 220 mg PO DAILY [facility] Last Admin: 03/26/20 08:39 Dose: 220 mg Documented by: Objective - Vital Signs Vital signs: Vital Signs Temp 98.1 F 03/26/20 23:00 Pulse 53 L 03/26/20 23:00 Resp 20 03/26/20 23:00 BP 120/71 03/26/20 23:00 Pulse Ox 94 L 03/26/20 23:00 Intake & Output 03/26/20 03/26/20 03/27/20 06:59 18:59 06:59 Intake Total 950 600 965 Balance 950 600 965 Intake: Intake, IV Titration 600 375 Amount Sodium Chloride 0.9% 1, 600 375 000 ml @ 75 mls/hr IV . [id number] [facility] Rx#:[id number] Oral 950 590 Other: Voiding Method Toilet # Voids 2 1 - Exam PHYSICAL EXAM GENERAL: The patient is alert and oriented x3, not in any acute distress. HEENT: Pupils are round and equally reacting to light. No conjunctival pallor. CARDIOVASCULAR: S1 and S2 present. No murmurs, rubs, or gallops. -PULMONARY: Chest is clear to auscultation, no wheezing. Decreased breath sounds at bilateral bases ABDOMEN: Soft, nontender, nondistended, normoactive bowel sounds. MUSCULOSKELETAL: No joint swelling or deformity. EXTREMITIES: No cyanosis, clubbing, or pedal edema. NEUROLOGICAL: Gross neurological examination did not reveal any focal deficits. SKIN: No rashes. No petechiae - Labs CBC & Chem 7: 03/26/20 07:52 03/27/20 06:05 Labs: Abnormal Lab Results - Last 24 Hours (Table) 03/26/20 03/26/20 03/26/20 Range/Units 07:11 07:52 11:30 RBC 3.50 L (4.30-5.90) m/uL MCV 125.4 H (80.0-100.0) fL MCH 40.6 H (25.0-35.0) pg Macrocytosis Marked A POC Glucose (mg/dL) 272 H 262 H (75-99) mg/dL 03/26/20 03/26/20 Range/Units 17:02 20:11 RBC (4.30-5.90) m/uL MCV (80.0-100.0) fL MCH (25.0-35.0) pg Macrocytosis POC Glucose (mg/dL) 238 H 325 H (75-99) mg/dL Microbiology - Last 24 Hours (Table) 03/21/20 15:16 Blood Culture - Preliminary Blood No Growth after 120 hours Assessment and Plan Assessment: ASSESSMENT Bilateral Covid pneumonia acute hypoxic respiratory failure secondary to above Increase inflammatory markers secondary to above Diabetes mellitus Hypertension Sleep apnea on BiPAP Blood Dyscrasia on hydroxyurea and follow-up with Dr. Whitten History of neuropathy Plan: This is a pleasant 69 years old male who presents with bilateral Covid pneumonia. Her respiratory status slowly improving, he is on 5 L of oxygen currently. Continue with dexamethasone. Follow-up inflammatory markers.Continue with ascorbic acid and zinc, Lovenox. Pulmonary service following. Continue with symptomatic treatment. Resumed on home medication. Monitor lytes and vitals. DVT and GI prophylaxis. Further recommendations depends on the clinical course of the patient. Prognosis is guarded
--- NOTE | 2020-03-27 14:27 | P.PN ---
Subjective Progress Note Date: 03/27/20 On today's evaluation of 03/27/2020, the patient is on 2 liters oxygen. He had a chest x-ray earlier this morning that showed bilateral pulmonary infiltrates that was thought to be slightly worse in the right upper lobe from the previous study. Nevertheless, the patient is doing well. He has completed remdesivir the patient is also on steroids. Despite the worsening in the x-ray findings, the patient reports that he is feeling better. More energy. He is short of breath. Inflammatory markers shows a drop in the ferritin down to 1582, LDH is down to 434 and the C-reactive protein is down to 0.4. Noted the patient was on 6 L back in 03/25/2020 and his oxygenation currently improved and is down to 4 L. His pulse ox currently is somewhat between 93-97%. I think he can be weaned down further. Objective - Vital Signs Vital signs: Vital Signs Temp 97.4 F L 03/27/20 11:00 Pulse 61 03/27/20 11:00 Resp 20 03/27/20 11:00 BP 123/69 03/27/20 11:00 Pulse Ox 97 03/27/20 11:00 Intake & Output 03/26/20 03/27/20 03/27/20 18:59 06:59 18:59 Intake Total 600 1315 Balance 600 1315 Intake: Intake, IV Titration 600 725 Amount Sodium Chloride 0.9% 1, 600 725 000 ml @ 75 mls/hr IV . [id number] [facility] Rx#:[id number] Oral 590 Other: Voiding Method Toilet Toilet # Voids 2 - Exam GENERAL EXAM: Alert, pleasant 69-year-old gentleman, currently resting in bed, on 2 L nasal cannula, comfortable in no apparent distress. HEAD: Normocephalic. EYES: Normal reaction of pupils, equal size. NOSE: Clear with pink turbinates. THROAT: No erythema or exudates. NECK: No masses, no JVD. CHEST: No chest wall deformity. LUNGS: Equal air entry with coarse scattered rhonchi bilaterally. CVS: S1 and S2 normal with no audible murmur, regular rhythm. ABDOMEN: No hepatosplenomegaly, normal bowel sounds, no guarding or rigidity. SPINE: No scoliosis or deformity SKIN: No rashes CENTRAL NERVOUS SYSTEM: No focal deficits, tone is normal in all 4 extremities. EXTREMITIES: There is no peripheral edema. No clubbing, no cyanosis. Peripheral pulses are intact. - Labs CBC & Chem 7: 03/26/20 07:52 03/27/20 06:05 Labs: Abnormal Lab Results - Last 24 Hours (Table) 03/26/20 03/26/20 03/27/20 Range/Units 17:02 20:11 06:05 BUN/Creatinine Ratio 26.25 H (12.00-20.00) Ratio Glucose 227 H (70-110) mg/dL POC Glucose (mg/dL) 238 H 325 H (75-99) mg/dL Calcium 8.3 L (8.7-10.3) mg/dL Ferritin 1582.3 H (22.0-322.0) ng/mL Lactate Dehydrogenase 434 H (120-246) U/L 03/27/20 03/27/20 Range/Units 07:09 12:05 BUN/Creatinine Ratio (12.00-20.00) Ratio Glucose (70-110) mg/dL POC Glucose (mg/dL) 204 H 323 H (75-99) mg/dL Calcium (8.7-10.3) mg/dL Ferritin (22.0-322.0) ng/mL Lactate Dehydrogenase (120-246) U/L Microbiology - Last 24 Hours (Table) 03/21/20 15:16 Blood Culture - Preliminary Blood No Growth after 120 hours Assessment and Plan Plan: 1 Acute hypoxemic respiratory failure secondary to CoVID 19 pneumonitis, tested positive 03/10/2020, outside of the window for Remdesivirnumber currently on Decadron, currently on 4 L of oxygen by nasal cannula, clinically feeling better, chest x-ray still showing bilateral pulmonary infiltrates slightly worsening on the right. Inflammatory markers are declining. 2 History of skin cancer 3 Diabetes mellitus 4 Diabetic neuropathy 5 Hypertension 6 Obstructive sleep apnea, currently on CPAP 7 Degenerative joint disease 8 Diverticular disease 9 Polycythemia rubra vera, on hydroxyurea Plan: Continue current treatment plan Titrate down the FiO2 as toleratedand the patient is currently on4 L of oxygen by nasal cannula. He is stable. The decision is a 70 patient home, he would need oxygen concentrator and portable tanks. Repeat chest x-ray was noted in inflammatory markers are improving. Continue Decadron We will continue to follow and make further recommendations based on his clinical status
--- NOTE | 2020-03-27 16:29 | P.PN ---
Subjective Progress Note Date: 03/27/20 Bilateral Covid pneumonia Mr. Koehler is a 69 years old male with past medical history of hypertension, diabetes mellitus, sleep apnea on BiPAP, skin cancer, blood disease that. With Dr. Whittne and is on hydroxyurea, neuropathy. He is a patient of Dr. Barnes and he was diagnosed with Covid positive test about 3 weeks ago. This time he presents because of dyspnea that is progressively worse. He has also some muscle pain and coughing and generalized weakness. Also he has some upper respiratory symptoms like sore throat with resistant loss of taste and smell. No chest pain. On admission he has fever of 100.4, he is saturating 93% on 3-4 L via nasal cannula, (was 84% on room air ), patient is tachypneic 22-28. Blood pressure is stable. CBC showing unremarkable WBC, hemoglobin is normal, platelets also normal. He has marked microcytosis with MCV of 122. INR is 1.2, d-dimer is elevated at 1.8, rest of BMP and liver enzymes were unremarkable. Ferritin is increased at 2543, lactate dehydrogenase high at 1349 and high C-reactive protein and 27.9. Pro-calcitonin is normal at 0.08. EKG showing normal sinus rhythm at 99 BPM with no significant ST-T changes. CTA of the chest showing bi lateral patchy pneumonia and infiltrate, no evidence of pulmonary embolism, mediastinal and bronchial lymph nodes are likely inflammatory. On 03/25/2020- patient is sitting up in a chair by the bedside and on high flow oxygen. He states that he wants to go. Patient denies having any complaints of chest pain or palpitations. No abdominal pain pain nausea vomiting or diarrhea. On reviewing patient's vitals his been afebrile, blood pressure within normal limits. Her cultures showed no growth to date. He is saturating at low 90s on 6 L of high flow oxygen. On - patient is sitting up in the bed appears to be in no acute distress. He states that his breathing is Getting better gradually. Denies having any chest pain or palpitations. Abdominal pain nausea vomiting or diarrhea. No dysuria or hematuria. On reviewing her vitals patient has been afebrile, saturating at night. On 2 L of nasal cannula. On reviewing his labs white count of 6, hemoglobin 14.2, platelets 322. 03/27/2020 Patient is seen and evaluated and follow-up no acute overnight issues. Patient's breathing is slightly improved and titrating FiO2 as tolerated. Patient currently on 4 L via nasal cannula. Continue to wean FiO2 as tolerated. Repeat chest x-ray today shows persistent bilateral acute infiltrates slightly worsening of the right upper lung consistent with Covid 19 infection progressi on. Pulmonary is following. Patient is maintained on zinc supplements, vitamin C and E, dexamethasone, and Lovenox and will continue at this time. Discussed with aging about increasing activity as tolerated. Lactate dehydrogenase improved For 34 and CRP is 0.4. D-dimer today is 0.55. Review of systems: Constitutional: No reports of fatigue, fever, or chills Cardiovascular: No reports of chest pain or palpitations Respiratory: Reports mild shortness of breath and occasional cough GI: No reports of nausea, vomiting, or diarrhea : No reports of dysuria or retention Neurovascular: No reports of weakness or numbness All medications have been reviewed Objective - Vital Signs Vital signs: Vital Signs Temp 97.4 F L 03/27/20 11:00 Pulse 61 03/27/20 11:00 Resp 20 03/27/20 11:00 BP 123/69 03/27/20 11:00 Pulse Ox 97 03/27/20 11:00 Intake & Output 03/26/20 03/27/20 03/27/20 18:59 06:59 18:59 Intake Total 600 1315 Balance 600 1315 Intake: Intake, IV Titration 600 725 Amount Sodium Chloride 0.9% 1, 600 725 000 ml @ 75 mls/hr IV . [id number] [facility] Rx#:[id number] Oral 590 Other: Voiding Method Toilet Toilet # Voids 2 - Exam GENERAL: The patient is alert and oriented x3, not in any acute distress. HEENT: Pupils are round and equally reacting to light. No conjunctival pallor. CARDIOVASCULAR: S1 and S2 present. No murmurs, rubs, or gallops. -PULMONARY: Chest is clear to auscultation, no wheezing. Decreased breath sounds at bilateral bases ABDOMEN: Soft, nontender, nondistended, normoactive bowel sounds. MUSCULOSKELETAL: No joint swelling or deformity. EXTREMITIES: No cyanosis, clubbing, or pedal edema. NEUROLOGICAL: Gross neurological examination did not reveal any focal deficits. SKIN: No rashes. No petechiae - Labs CBC & Chem 7: 03/26/20 07:52 03/27/20 06:05 Labs: Abnormal Lab Results - Last 24 Hours (Table) 03/26/20 03/26/20 03/27/20 Range/Units 17:02 20:11 06:05 BUN/Creatinine Ratio 26.25 H (12.00-20.00) Ratio Glucose 227 H (70-110) mg/dL POC Glucose (mg/dL) 238 H 325 H (75-99) mg/dL Calcium 8.3 L (8.7-10.3) mg/dL Ferritin 1582.3 H (22.0-322.0) ng/mL Lactate Dehydrogenase 434 H (120-246) U/L 03/27/20 03/27/20 Range/Units 07:09 12:05 BUN/Creatinine Ratio (12.00-20.00) Ratio Glucose (70-110) mg/dL POC Glucose (mg/dL) 204 H 323 H (75-99) mg/dL Calcium (8.7-10.3) mg/dL Ferritin (22.0-322.0) ng/mL Lactate Dehydrogenase (120-246) U/L Microbiology - Last 24 Hours (Table) 03/21/20 15:16 Blood Culture - Preliminary Blood No Growth after 120 hours Assessment and Plan Assessment: Bilateral Covid pneumonia acute hypoxic respiratory failure secondary to above Increase inflammatory markers secondary to above Diabetes mellitus Hypertension Sleep apnea on BiPAP Blood Dyscrasia on hydroxyurea and follow-up with Dr. Whitten History of neuropathy Full code GI prophylaxis: Protonix DVT prophylaxis: Lovenox Plan: Continue with current medication regimen. Patient is maintained on Lovenox, vitamin C and E supplements, dexamethasone, zinc supplementation and will continue at this time. Repeat chest x-ray today shows chronic changes with persistent bilateral acute infiltrates slight worsening in the right upper lung and consistent with Covid 19 infection progression. Pulmonary is following. Discussed with nursing staff about weaning FiO2 as tolerated. Will continue to monitor closely and repeat a.m. labs. Further recommendations to follow. Possible discharge in 24-48 hours.
[2020-03-27 17:07] LABS: Glucose,Whole Blood 303 mg/dL (75-99)
[2020-03-27 20:12] LABS: Glucose,Whole Blood 365 mg/dL (75-99)
[2020-03-27] MEDS: MELATONIN 5 MG TABLET PO SCH (20:49)
[2020-03-27] MEDS: GABAPENTIN 300 MG CAP PO SCH (20:49)
[2020-03-28 06:13] LABS: HCT 45.4 % (39.0-53.0); HGB 15.5 gm/dL (13.0-17.5); MCH 41.9 pg (25.0-35.0); MCHC 34.2 g/dL (31.0-37.0); MCV 122.6 fL (80.0-100.0); Macrocytosis Marked; Mean Platelet Volume 8.2; Platelet Count 331 k/uL (150-450); RDW 12.2 % (11.5-15.5); WBC 4.1 k/uL (3.8-10.6)
[2020-03-28] MEDS: SODIUM CHLORIDE 0.9% 1,000 ML IV SCH ×3 (06:23→21:37)
[2020-03-28 06:51] LABS: Lymphocytes # (M) 1.31 k/uL (1.0-4.8); Monocytes # (M) 0.25 k/uL (0-1.0); Neutrophils # (M) 2.54 k/uL (1.3-7.7); Neutrophils % (M) 62 %; Nucleated Red Blood Cells 1 /100 WBC (0-0); Total Cells Counted 200
[2020-03-28 06:52] LABS: Large Platelets Present
[2020-03-28 07:33] LABS: Glucose,Whole Blood 256 mg/dL (75-99)
[2020-03-28] MEDS: ENOXAPARIN 40 MG/0.4 ML SYRINGE SQ SCH (08:23)
[2020-03-28] MEDS: dexAMETHasone 2 MG TAB PO SCH (08:24)
[2020-03-28] MEDS: FAMOTIDINE 20 MG TAB PO SCH (08:24)
[2020-03-28] MEDS: INSULIN ASPART (NovoLOG) 100 UNIT/ML VIAL SQ SCH ×4 (08:24→21:24)
[2020-03-28] MEDS: ASCORBIC ACID 500 MG TAB PO SCH (08:25)
[2020-03-28] MEDS: ZINC SULFATE 220 MG CAP PO SCH (08:25)
[2020-03-28] MEDS: ASPIRIN 325 MG TAB PO SCH (08:25)
[2020-03-28] MEDS: PIOGLITAZONE 15 MG TAB PO SCH (08:26)
[2020-03-28] MEDS: PANTOPRAZOLE 40 MG/10 ML VIAL IVP SCH (08:26)
[2020-03-28] MEDS: HYDROXYUREA 500 MG CAP PO SCH ×4 (08:27→21:24)
[2020-03-28] MEDS: DILTIAZEM CD 120 MG CAP.ER.24H PO SCH ×2 (08:27→21:24)
[2020-03-28] MEDS: METOPROLOL TARTRATE 50 MG TAB PO SCH ×2 (08:42→21:24)
[2020-03-28] MEDS: CHOLECALCIFEROL 400 UNIT TAB PO SCH (08:59)
[2020-03-28 09:34] LABS: African American GFR (CKD) 101.4 (60.0-200.0); Anion Gap 4.9 mmol/L (4.00-12.00); BUN/Creat Ratio 25.56 Ratio (12.00-20.00); Calcium 8.4 mg/dL (8.7-10.3); Carbon Dioxide 32.1 mmol/L (21.6-31.8); Non-African American GFR(CKD) 87.5 (60.0-200.0); Potassium 5.3 mmol/L (3.5-5.5)
[2020-03-28 11:39] LABS: Glucose,Whole Blood 311 mg/dL (75-99)
--- NOTE | 2020-03-28 13:12 | P.PN ---
Subjective Progress Note Date: 03/28/20 On today's evaluation of 03/27/2020, the patient is on 2 liters oxygen. He had a chest x-ray earlier this morning that showed bilateral pulmonary infiltrates that was thought to be slightly worse in the right upper lobe from the previous study. Nevertheless, the patient is doing well. He has completed remdesivir the patient is also on steroids. Despite the worsening in the x-ray findings, the patient reports that he is feeling better. More energy. He is short of breath. Inflammatory markers shows a drop in the ferritin down to 1582, LDH is down to 434 and the C-reactive protein is down to 0.4. Noted the patient was on 6 L back in 03/25/2020 and his oxygenation currently improved and is down to 4 L. His pulse ox currently is somewhat between 93-97%. I think he can be weaned down further. Douglas 03/28/2020, the patient continues to be on 2 L. He has completed his antibiotic treatment and the patient is currently on Decadron. Overall, doing well. Tolerating his diet. No nausea. No vomiting. No altered mentation. No chest pain.He remains on Decadron. He remains on Lovenox for DVT prophylaxis. His home medications of been all resumed. Objective - Vital Signs Vital signs: Vital Signs Temp 97.7 F 03/28/20 10:58 Pulse 61 03/28/20 10:58 Resp 20 03/28/20 10:58 BP 117/65 03/28/20 10:58 Pulse Ox 96 03/28/20 10:58 Intake & Output 03/27/20 03/28/20 03/28/20 18:59 06:59 18:59 Intake Total 590 Output Total 1550 Balance -960 Intake: Oral 590 Output: Urine 1550 Other: Voiding Method Toilet Toilet Toilet - Exam GENERAL EXAM: Alert, pleasant 69-year-old gentleman, currently resting in bed, on 2 L nasal cannula, comfortable in no apparent distress. HEAD: Normocephalic. EYES: Normal reaction of pupils, equal size. NOSE: Clear with pink turbinates. THROAT: No erythema or exudates. NECK: No masses, no JVD. CHEST: No chest wall deformity. LUNGS: Equal air entry with coarse scattered rhonchi bilaterally. CVS: S1 and S2 normal with no audible murmur, regular rhythm. ABDOMEN: No hepatosplenomegaly, normal bowel sounds, no guarding or rigidity. SPINE: No scoliosis or deformity SKIN: No rashes CENTRAL NERVOUS SYSTEM: No focal deficits, tone is normal in all 4 extremities. EXTREMITIES: There is no peripheral edema. No clubbing, no cyanosis. Peripheral pulses are intact. - Labs CBC & Chem 7: 03/28/20 05:37 03/28/20 05:37 Labs: Abnormal Lab Results - Last 24 Hours (Table) 03/27/20 03/27/20 03/28/20 Range/Units 17:06 20:10 05:37 RBC 3.70 L (4.30-5.90) m/uL MCV 122.6 H (80.0-100.0) fL MCH 41.9 H (25.0-35.0) pg Nucleated RBCs 1 H (0-0) /100 WBC Macrocytosis Marked A Carbon Dioxide (21.6-31.8) mmol/L BUN/Creatinine Ratio (12.00-20.00) Ratio Glucose (70-110) mg/dL POC Glucose (mg/dL) 303 H 365 H (75-99) mg/dL Calcium (8.7-10.3) mg/dL 03/28/20 03/28/20 03/28/20 Range/Units 05:37 07:31 11:38 RBC (4.30-5.90) m/uL MCV (80.0-100.0) fL MCH (25.0-35.0) pg Nucleated RBCs (0-0) /100 WBC Macrocytosis Carbon Dioxide 32.1 H (21.6-31.8) mmol/L BUN/Creatinine Ratio 25.56 H (12.00-20.00) Ratio Glucose 251 H (70-110) mg/dL POC Glucose (mg/dL) 256 H 311 H (75-99) mg/dL Calcium 8.4 L (8.7-10.3) mg/dL Microbiology - Last 24 Hours (Table) 03/21/20 15:16 Blood Culture - Final Blood No Growth after 144 hours Assessment and Plan Plan: 1 Acute hypoxemic respiratory failure secondary to CoVID 19 pneumonitis, tested positive 03/10/2020, outside of the window for Remdesivir, currently on Decadron , currently on 4 L of oxygen by nasal cannula, clinically feeling better, chest x-ray still showing bilateral pulmonary infiltrates slightly worsening on the right. Inflammatory markers are declining. 2 History of skin cancer 3 Diabetes mellitus 4 Diabetic neuropathy 5 Hypertension 6 Obstructive sleep apnea, currently on CPAP 7 Degenerative joint disease 8 Diverticular disease 9 Polycythemia rubra vera, on hydroxyurea Plan: Continue current treatment plan Titrate down the FiO2 down further and the patient is currently on 2 L.. Repeat chest x-ray was noted in inflammatory markers are improving. Continue Decadron discharge home either today or tomorrow.
[2020-03-28 13:38] VITALS: BMI 30.2
[2020-03-28 16:56] LABS: Glucose,Whole Blood 326 mg/dL (75-99)
[2020-03-28 20:10] LABS: Glucose,Whole Blood 325 mg/dL (75-99)
[2020-03-28] MEDS: MELATONIN 5 MG TABLET PO SCH (21:24)
[2020-03-28] MEDS: GABAPENTIN 300 MG CAP PO SCH (21:24)
--- NOTE | 2020-03-28 22:42 | P.PN ---
Subjective This is a pleasant 69 years old male with past medical history of hypertension, diabetes mellitus, sleep apnea on BiPAP, skin cancer, blood disease that. With Dr. Whitten and is on hydroxyurea, neuropathy. He is a patient of Dr. Barnes and he was diagnosed with Covid positive test about 3 weeks ago. This time he presents because of dyspnea that is progressively worse. She has also some muscle pain and coughing and generalized weakness. Also she has some upper respiratory symptoms like sore throat with resistant loss of taste and smell. No chest pain. On admission he has fever of 100.4, he is saturating 93% on 3-4 L via nasal cannula, (was 84% on room air ), patient is tachypneic 22-28. Blood pressure is stable. CBC showing unremarkable WBC, hemoglobin is normal, platelets also normal. He has marked microcytosis with MCV of 122. INR is 1.2, d-dimer is elevated at 1.8, rest of BMP and liver enzymes were unremarkable. Ferritin is increased at 2543, lactate dehydrogenase high at 1349 and high C-reactive protein and 27.9. Pro-calcitonin is normal at 0.08 EKG showing normal sinus rhythm at 99 BPM with no significant ST-T changes CTA of the chest showing bilateral patchy pneumonia and infiltrate, no evidence of pulmonary embolism, mediastinal and bronchial lymph nodes are likely inflammatory. And emergency room he received 1 dose of ceftriaxone and 1 L of normal saline. 03/23/2020 Patient is in mild respiratory distress, he thinks he is improving, he is working between the chair in bed with no difficulties. Minimal cough. No chest pain Reason for visit oxygen with saturation 89-90% Follow-up chest x-ray not limited to marker in the morning 03/24/2020 Patient is at the bedside, no respiratory distress, talking easily. He states that his improving gradually. No significant coughing. No significant dyspnea. However his cell noticed to be tachypneic. No chest pain. No GI symptoms. His oxygen requirements went up to 6-9 L/m via nasal cannula Pulmonary team on the case and patient is followed closely by Dr. Hernandez chest x-ray: Chronic changes with persistent left mid to lower lung acute infiltrates felt stable. Worsening right mid lung acute infiltrates. Findings consistent with Covid 19 infection or progression .Continue with treatment as per recommendation by pulmonary team, is currently on dexamethasone, Lovenox also on vitamin C and zinc. 03/28/2020 (patient has been followed by my colleague over the last 3 days) Patient with Covid pneumonia showing significant improvement, currently he is on 2 L oxygen via nasal cannula. No much coughing. No abdominal pain or diarrhea Hemodynamically stable. He remains on dexamethasone and ascorbic acid and zinc. As well as Lovenox Possible discharge in 24-48 hours if he keeps improving Review of systems CONSTITUTIONAL: No fever, no malaise, no fatigue. HEENT: No recent visual problems or hearing problems. Denied any sore throat. CARDIOVASCULAR: No orthopnea, PND, no palpitations, no syncope. PULMONARY: No chest wall tenderness, no hemoptysis. GASTROINTESTINAL: No diarrhea, no nausea, no vomiting, no abdominal pain. Normoactive bowel sounds. NEUROLOGICAL: No headaches, no weakness, no numbness. HEMATOLOGICAL: Denies any bleeding or petechiae. Active Medications Generic Name Dose Route Start Last Admin Trade Name Freq PRN Reason Stop Dose Admin Acetaminophen 650 mg 03/21/20 15:00 03/22/20 02:39 Acetaminophen Tab 325 Mg Tab PO 650 mg Q4HR PRN Administration Fever>101 Hydrocodone Bitart/Acetaminophen 1 each 03/22/20 01:33 Hydrocodone/Apap 5-325mg 1 Each Tab PO Q6H PRN Pain Ascorbic Acid 1,000 mg 03/22/20 09:00 03/28/20 08:25 Ascorbic Acid 500 Mg Tab PO 1,000 mg DAILY MATT Administration Aspirin 325 mg 03/22/20 09:00 03/28/20 08:25 Aspirin 325 Mg Tab PO 325 mg DAILY MATT Administration Cholecalciferol 400 unit 03/23/20 09:00 03/28/20 08:59 Cholecalciferol 400 Unit Tab PO 400 unit DAILY MATT Administration Dexamethasone 6 mg 03/23/20 09:00 03/28/20 08:24 Dexamethasone 2 Mg Tab PO 6 mg DAILY MATT Administration Diltiazem HCl 120 mg 03/22/20 09:00 03/28/20 21:24 Diltiazem Cd 120 Mg Cap.Er.24h PO 120 mg BID MATT Administration Enoxaparin Sodium 40 mg 03/22/20 09:00 03/28/20 08:23 Enoxaparin 40 Mg/0.4 Ml Syringe SQ 40 mg DAILY MATT Administration Famotidine 40 mg 03/23/20 09:00 03/28/20 08:24 Famotidine 20 Mg Tab PO 40 mg DAILY MATT Administration Gabapentin 300 mg 03/22/20 21:00 03/28/20 21:24 Gabapentin 300 Mg Cap PO 300 mg HS MATT Administration Guaifenesin/Dextromethorphan 10 ml 03/22/20 01:33 03/22/20 09:00 Guaifenesin-Dm 100-10mg/5ml 10 Ml Cup PO 10 ml Q8H PRN Administration Cough Hydroxyurea 500 mg 03/22/20 09:00 03/28/20 21:24 Hydroxyurea 500 Mg Cap PO 500 mg QID MATT Administration Sodium Chloride 1,000 mls @ 75 mls/hr 03/21/20 15:30 03/28/20 21:37 Saline 0.9% IV Not Given .[id number] MATT Insulin Aspart 0 unit 03/23/20 07:30 03/28/20 21:24 Insulin Aspart (Novolog) 100 Unit/Ml Vial SQ 8 unit ACHS MATT Administration Protocol Melatonin 5 mg 03/22/20 21:00 03/28/20 21:24 Melatonin 5 Mg Tablet PO 5 mg HS MATT Administration Metoprolol Tartrate 100 mg 03/22/20 09:00 03/28/20 21:24 Metoprolol Tartrate 50 Mg Tab PO 100 mg BID MATT Administration Naloxone HCl 0.2 mg 03/21/20 16:59 Naloxone 0.4 Mg/Ml 1 Ml Vial IV Q2M PRN Opioid Reversal Pioglitazone HCl 15 mg 03/22/20 09:00 03/28/20 08:26 Pioglitazone 15 Mg Tab PO 15 mg DAILY MATT Administration Ropinirole HCl 3 mg 03/22/20 09:00 03/28/20 21:24 Ropinirole Hcl 1 Mg Tab PO 3 mg QID MATT Administration Zinc Sulfate 220 mg 03/22/20 09:00 03/28/20 08:25 Zinc Sulfate 220 Mg Cap PO 220 mg DAILY MATT Administration Objective - Vital Signs Vital signs: Vital Signs Temp 97.7 F 03/28/20 10:58 Pulse 61 03/28/20 10:58 Resp 20 03/28/20 10:58 BP 117/65 03/28/20 10:58 Pulse Ox 96 03/28/20 10:58 Intake & Output 03/27/20 03/28/20 03/28/20 18:59 06:59 18:59 Intake Total 590 Output Total 1550 Balance -960 Intake: Oral 590 Output: Urine 1550 Other: Voiding Method Toilet Toilet Toilet - Exam GENERAL: The patient is alert and oriented x3, not in any acute distress. Well developed, well nourished. HEENT: Pupils are round and equally reacting to light. EOMI. No scleral icterus. No conjunctival pallor. Normocephalic, atraumatic. No pharyngeal erythema. No thyromegaly. CARDIOVASCULAR: S1 and S2 present. No murmurs, rubs, or gallops. -PULMONARY: Chest is clear to auscultation, no wheezing. Bilateral regu rgitation and decreased breath sounds ABDOMEN: Soft, nontender, nondistended, normoactive bowel sounds. No palpable organomegaly. MUSCULOSKELETAL: No joint swelling or deformity. EXTREMITIES: No cyanosis, clubbing, or pedal edema. NEUROLOGICAL: Gross neurological examination did not reveal any focal deficits. SKIN: No rashes. No petechiae - Labs CBC & Chem 7: 03/28/20 05:37 03/28/20 05:37 Labs: Abnormal Lab Results - Last 24 Hours (Table) 03/27/20 03/27/20 03/28/20 Range/Units 17:06 20:10 05:37 RBC 3.70 L (4.30-5.90) m/uL MCV 122.6 H (80.0-100.0) fL MCH 41.9 H (25.0-35.0) pg Nucleated RBCs 1 H (0-0) /100 WBC Macrocytosis Marked A Carbon Dioxide (21.6-31.8) mmol/L BUN/Creatinine Ratio (12.00-20.00) Ratio Glucose (70-110) mg/dL POC Glucose (mg/dL) 303 H 365 H (75-99) mg/dL Calcium (8.7-10.3) mg/dL 03/28/20 03/28/20 03/28/20 Range/Units 05:37 07:31 11:38 RBC (4.30-5.90) m/uL MCV (80.0-100.0) fL MCH (25.0-35.0) pg Nucleated RBCs (0-0) /100 WBC Macrocytosis Carbon Dioxide 32.1 H (21.6-31.8) mmol/L BUN/Creatinine Ratio 25.56 H (12.00-20.00) Ratio Glucose 251 H (70-110) mg/dL POC Glucose (mg/dL) 256 H 311 H (75-99) mg/dL Calcium 8.4 L (8.7-10.3) mg/dL Microbiology - Last 24 Hours (Table) 03/21/20 15:16 Blood Culture - Final Blood No Growth after 144 hours Assessment and Plan Assessment: Bilateral Covid pneumonia acute hypoxic respiratory failure secondary to above, improving Increase inflammatory markers secondary to above Diabetes mellitus Hypertension Sleep apnea on BiPAP Blood Dyscrasia on hydroxyurea and follow-up with Dr. Whitten History of neuropathy Plan: This is a pleasant 69 years old male who presents with bilateral Covid pneumo junior. Continue with ascorbic acid and zinc, Lovenox. Continue with dexamethasone. Follow-up inflammatory markers. Consult pulmonary service Labs and medication were reviewed.. Continue same treatment. Continue with symptomatic treatment. Resume home medication. Monitor lytes and vitals. DVT and GI prophylaxis. Further recommendations depends on the clinical course of the patient DVT prophylaxis: Subcutaneous Lovenox GI Prophylaxis: Ppi Possible discharge in 24 hours
[2020-03-29 04:47] VITALS: PULSE 53
[2020-03-29 07:23] LABS: Glucose,Whole Blood 211 mg/dL (75-99)
[2020-03-29] MEDS: INSULIN ASPART (NovoLOG) 100 UNIT/ML VIAL SQ SCH ×2 (08:54→13:25)
[2020-03-29] MEDS: ASPIRIN 325 MG TAB PO SCH (09:11)
[2020-03-29] MEDS: ASCORBIC ACID 500 MG TAB PO SCH (09:11)
[2020-03-29] MEDS: dexAMETHasone 2 MG TAB PO SCH (09:11)
[2020-03-29] MEDS: FAMOTIDINE 20 MG TAB PO SCH (09:11)
[2020-03-29] MEDS: METOPROLOL TARTRATE 50 MG TAB PO SCH (09:11)
[2020-03-29] MEDS: ZINC SULFATE 220 MG CAP PO SCH (09:11)
[2020-03-29] MEDS: DILTIAZEM CD 120 MG CAP.ER.24H PO SCH (09:13)
[2020-03-29] MEDS: CHOLECALCIFEROL 400 UNIT TAB PO SCH (09:13)
[2020-03-29] MEDS: PIOGLITAZONE 15 MG TAB PO SCH (09:13)
[2020-03-29] MEDS: HYDROXYUREA 500 MG CAP PO SCH ×2 (09:13→13:07)
[2020-03-29] MEDS: ENOXAPARIN 40 MG/0.4 ML SYRINGE SQ SCH (09:13)
[2020-03-29 12:10] LABS: Glucose,Whole Blood 342 mg/dL (75-99)
[2020-03-29 12:21] VITALS: BP 113/67; RESP 17; TEMP 97.6
--- NOTE | 2020-03-29 12:24 | P.PN ---
Subjective Progress Note Date: 03/29/20 On today's evaluation of 03/27/2020, the patient is on 2 liters oxygen. He had a chest x-ray earlier this morning that showed bilateral pulmonary infiltrates that was thought to be slightly worse in the right upper lobe from the previous study. Nevertheless, the patient is doing well. He has completed remdesivir the patient is also on steroids. Despite the worsening in the x-ray findings, the patient reports that he is feeling better. More energy. He is short of breath. Inflammatory markers shows a drop in the ferritin down to 1582, LDH is down to 434 and the C-reactive protein is down to 0.4. Noted the patient was on 6 L back in 03/25/2020 and his oxygenation currently improved and is down to 4 L. His pulse ox currently is somewhat between 93-97%. I think he can be weaned down further. [place] 03/28/2020, the patient continues to be on 2 L. He has completed his antibiotic treatment and the patient is currently on Decadron. Overall, doing well. Tolerating his diet. No nausea. No vomiting. No altered mentation. No chest pain.He remains on Decadron. He remains on Lovenox for DVT prophylaxis. His home medications of been all resumed. 03/29/2020, the patient is on room air oxygen. No specific complaints. Sitting up on a chair. No nausea or vomiting. No diarrhea or abdominal pain. No other complaints otherwise for now. Objective - Vital Signs Vital signs: Vital Signs Temp 97.6 F 03/29/20 11:00 Pulse 53 L 03/29/20 11:00 Resp 17 03/29/20 11:00 BP 113/67 03/29/20 11:00 Pulse Ox 91 L 03/29/20 11:00 Intake & Output 03/28/20 03/29/20 03/29/20 18:59 06:59 18:59 Intake Total 600 320 Balance 600 320 Weight 98.43 kg Intake: Intake, IV Titration 600 Amount Sodium Chloride 0.9% 1, 600 000 ml @ 75 mls/hr IV . [id number] [facility] Rx#:[id number] Oral 320 Other: Voiding Method Toilet Toilet # Voids 3 - Exam GENERAL EXAM: Alert, pleasant 69-year-old gentleman, currently resting in bed, on 2 L nasal cannula, comfortable in no apparent distress. HEAD: Normocephalic. EYES: Normal reaction of pupils, equal size. NOSE: Clear with pink turbinates. THROAT: No erythema or exudates. NECK: No masses, no JVD. CHEST: No chest wall deformity. LUNGS: Equal air entry with coarse scattered rhonchi bilaterally. CVS: S1 and S2 normal with no audible murmur, regular rhythm. ABDOMEN: No hepatosplenomegaly, normal bowel sounds, no guarding or rigidity. SPINE: No scoliosis or deformity SKIN: No rashes CENTRAL NERVOUS SYSTEM: No focal deficits, tone is normal in all 4 extremities. EXTREMITIES: There is no peripheral edema. No clubbing, no cyanosis. Peripheral pulses are intact. - Labs CBC & Chem 7: 03/28/20 05:37 03/28/20 05:37 Labs: Abnormal Lab Results - Last 24 Hours (Table) 03/28/20 03/28/20 03/29/20 Range/Units 16:55 20:09 07:21 POC Glucose (mg/dL) 326 H 325 H 211 H (75-99) mg/dL 03/29/20 Range/Units 11:58 POC Glucose (mg/dL) 342 H (75-99) mg/dL Assessment and Plan Plan: 1 Acute hypoxemic respiratory failure secondary to CoVID 19 pneumonitis, tested positive 03/10/2020, outside of the window for Remdesivir, currently on Decadron, currently on RA oxygen 2 History of skin cancer 3 Diabetes mellitus 4 Diabetic neuropathy 5 Hypertension 6 Obstructive sleep apnea, currently on CPAP 7 Degenerative joint disease 8 Diverticular disease 9 Polycythemia rubra vera, on hydroxyurea Plan: patient is currently on room air oxygen. Oxygenation is improved. The patient will be discharged home today to complete a total of 10 day course of Decadron. Follow-up with primary care. Follow-up with pulmonary. discharge home today
[2020-03-29] MEDS ORDERED: INSULIN ASPART (NovoLOG) 100 UNIT/ML VIAL SQ ONE ×2 (13:20→14:25)
[2020-03-29 14:19] LABS: Glucose,Whole Blood 267 mg/dL (75-99)
--- NOTE | 2020-03-29 23:00 | P.DS ---
Providers Date of admission: 03/21/20 16:52 Attending physician: Ralph Joyner Consults: 03/22/20 08:38 Consult Physician Urgent Consulting Provider: Ty Hernandez Consult Reason/Comments: Bilateral Covid pneumonia Do you want consulting provider notified?: Yes Primary care physician: Alannah Barnes Hospital Course: Diagnoses: Bilateral Covid pneumonia , improved acute hypoxic respiratory failure secondary to above, improved Increase inflammatory markers secondary to above Diabetes mellitus Hypertension Sleep apnea on BiPAP Blood Dyscrasia on hydroxyurea and follow-up with Dr. Whitten History of neuropathy Hospital course: This is a pleasant 69 years old male with past medical history of hypertension, diabetes mellitus, sleep apnea on BiPAP, skin cancer, blood disease that. With Dr. Whitten and is on hydroxyurea, neuropathy. He is a patient of Dr. Barnes and he was diagnosed with Covid positive test about 3 weeks ago. This time he presents because of dyspnea that is progressively worse. he has also some muscle pain and coughing and generalized weakness. Also she has some upper respiratory symptoms like sore throat with resistant loss of taste and smell. No chest pain.On admission he has fever of 100.4, he is saturating 93% on 3-4 L via nasal cannula, (was 84% on room air ), patient is tachypneic 22-28. Blood pressure is stable. CTA of the chest showing bilateral patchy pneumonia and infiltrate, no evidence of pulmonary embolism, mediastinal and bronchial lymph nodes are likely inflammatory. Patient was diagnosed with Covid pneumonia, pulmonary service evaluated the patient and were following the patient closely, he was treated with IV fluid, dexamethasone, vitamin C and zinc as well as Lovenox patient showed interval improvement and on the day of discharge his dyspnea is significantly improved. He was on room air and did not need oxygen to go home with when he was checked. Patient agrees to go home Patient was cleared for discharge by bonsai tender Patient instructed that his hyperglycemia is due to his steroids, patient will need 3 more days of dexamethasone, during this time patient was instructed to keep checking his glucose and to continue with local carbohydrate diet and resume his diabetes medication and check his sugar with his PCP in one week and he agrees Problems and management plan were discussed with the patient and he verbalized understanding and acceptance Patient was found stable and can be discharged home however he needs follow-up as an outpatient. Patient was instructed to follow up with PCP Dr. Barnes within one week and patient agrees. Also patient was instructed to follow up with bonsai tender Dr. Hernandez from 2-3 weeks and he agrees to call and make appointment Gen: patient is a AAOx3, no distress CVS: S1-S2, RRR, no murmur Lungs: B/L CTA, no wheezing Abdomen: soft, no distention, no tenderness, positive bowel sounds Extremity: no leg edema or induration Time spent more than 35 minutes Health Concerns: Patient did not qualify for Home Oxygen per protocol. Maintaining Oxygen level of 93% on room air with ambulation. Patient Condition at Discharge: Stable Plan - Discharge Summary New Discharge Prescriptions: New RX: dexAMETHasone [Hexadrol] 6 mg PO DAILY 3 Days #9 tab RX: Zinc Sulfate [Orazinc] 220 mg PO DAILY #30 cap RX: Famotidine [Pepcid] 40 mg PO DAILY #15 tab RX: guaiFENesin-DM 100-10MG/5ML [Robitussin DM] 10 ml PO Q8H PRN #100 ml PRN Reason: Cough RX: Ascorbic Acid [Vitamin C] 1,000 mg PO DAILY #60 tab RX: Cholecalciferol [Vitamin D3] 400 unit PO DAILY #30 tab RX: Albuterol Inhaler [Ventolin Hfa Inhaler] 1 puff INHALATION Q6HR PRN #1 puff PRN Reason: Shortness Of Breath Or Wheezing Continue RX: Diltiazem HCl [Diltiazem 24Hr ER] 120 mg PO BID RX: Hydroxyurea [Hydrea] 500 mg PO QID RX: rOPINIRole HCL [Requip] 3 mg PO QID RX: Aspirin EC [Ecotrin] 325 mg PO DAILY RX: Ginkgo Biloba [place] Extract [Ginkgo] 60 mg PO DAILY RX: Cyanocobalamin (Vitamin B-12) [Vitamin B-12] 2,500 mcg PO DAILY RX: Pioglitazone [Actos] 15 mg PO DAILY RX: Metoprolol Tartrate [Lopressor] 100 mg PO BID RX: Diclofenac Sodium Gel [Voltaren Gel] 4 gm TOPICAL QID PRN PRN Reason: Pain RX: HYDROcodone/APAP 5-325MG [[place] 5-325] 1 tab PO Q6H PRN PRN Reason: Pain RX: Canagliflozin [Invokana] 300 mg PO W/BRKFST RX: Gabapentin [Neurontin] 300 mg PO HS Discharge Medication List RX: Diltiazem HCl [Diltiazem 24Hr ER] 120 mg PO BID 01/20/14 [History] RX: Hydroxyurea [Hydrea] 500 mg PO QID 01/20/14 [History] RX: rOPINIRole HCL [Requip] 3 mg PO QID 03/25/17 [History] RX: Aspirin EC [Ecotrin] 325 mg PO DAILY 03/21/20 [History] RX: Canagliflozin [Invokana] 300 mg PO W/BRKFST 03/21/20 [History] RX: Cyanocobalamin (Vitamin B-12) [Vitamin B-12] 2,500 mcg PO DAILY 03/21/20 [History] RX: Diclofenac Sodium Gel [Voltaren Gel] 4 gm TOPICAL QID PRN 03/21/20 [History] RX: Gabapentin [Neurontin] 300 mg PO HS 03/21/20 [History] RX: Ginkgo Biloba [place] Extract [Ginkgo] 60 mg PO DAILY 03/21/20 [History] RX: HYDROcodone/APAP 5-325MG [[place] 5-325] 1 tab PO Q6H PRN 03/21/20 [History] RX: Metoprolol Tartrate [Lopressor] 100 mg PO BID 03/21/20 [History] RX: Pioglitazone [Actos] 15 mg PO DAILY 03/21/20 [History] RX: Albuterol Inhaler [Ventolin Hfa Inhaler] 1 puff INHALATION Q6HR PRN #1 puff 03/29/20 [Rx] RX: Ascorbic Acid [Vitamin C] 1,000 mg PO DAILY #60 tab 03/29/20 [Rx] RX: Cholecalciferol [Vitamin D3] 400 unit PO DAILY #30 tab 03/29/20 [Rx] RX: Famotidine [Pepcid] 40 mg PO DAILY #15 tab 03/29/20 [Rx] RX: Zinc Sulfate [Orazinc] 220 mg PO DAILY #30 cap 03/29/20 [Rx] RX: dexAMETHasone [Hexadrol] 6 mg PO DAILY 3 Days #9 tab 03/29/20 [Rx] RX: guaiFENesin-DM 100-10MG/5ML [Robitussin DM] 10 ml PO Q8H PRN #100 ml 03/29/20 [Rx] Follow up Appointment(s)/Referral(s): Ty Hernandez DO [Doctor of Osteopathic Medicine] - 3 Weeks (Follow up appointment: 04/28/20 at 0945. This will be an in person visit unless patient still having covid symptoms.) Alannah Barnes MD [Primary Care Provider] - 1-2 days (Please call for appointment- office currently closed.) Patient Instructions/Handouts: Famotidine (By mouth), Guaifenesin (By mouth), Ascorbic Acid (By mouth), Dexamethasone (By injection), Zinc Supplement (By mouth), Cholecalciferol (By mouth), Viral Pneumonia (DC), Meal Planning with Diabetes Exchanges (DC), Type 2 Diabetes in the Older Adult (DC) Activity/Diet/Wound Care/Special Instructions: heart low carbohydrate healthy diet activity is restricted till you see your doctor Discharge Disposition: HOME SELF-CARE
== END 2020-03-29 14:49 | disposition home or self-care (01) | DRG 177 ==
LOC: EC 14:25 → 6NMEDSUR 16:52
PROVIDERS: ADMIT Hospitalist; ATTEND Hospitalist
DX: U07.1 COVID-19 (principal); J12.89 Other viral pneumonia; J96.01 Acute respiratory failure with hypoxia; T38.0X5A Adverse effect of glucocorticoids and synthetic analogues, initial encounter; M19.90 Unspecified osteoarthritis, unspecified site; Z96.653 Presence of artificial knee joint, bilateral; K57.90 Diverticulosis of intestine, part unspecified, without perforation or abscess without bleeding; D45 Polycythemia vera; D75.9 Disease of blood and blood-forming organs, unspecified; E11.40 Type 2 diabetes mellitus with diabetic neuropathy, unspecified; G47.33 Obstructive sleep apnea (adult) (pediatric); I10 Essential (primary) hypertension; Z79.84 Long term (current) use of oral hypoglycemic drugs; Z79.82 Long term (current) use of aspirin; Z79.899 Other long term (current) drug therapy; Z80.1 Family history of malignant neoplasm of trachea, bronchus and lung; Z80.42 Family history of malignant neoplasm of prostate; Z85.828 Personal history of other malignant neoplasm of skin; Z90.49 Acquired absence of other specified parts of digestive tract; Z98.890 Other specified postprocedural states
CPT/HCPCS: 36415; 71045; 71275; 80048; 80053; 82728; 83605; 83615; 83735; 83880; 84145; 85025; 85379; 85610; 85730; 86140; 87040; 93005; 94760; 96361; 96365; 99285

== ENCOUNTER → 2020-09-07 | Outpatient (CLI) | payer MEDICARE ==
--- NOTE | 2020-09-07 20:33 | CT ---
EXAMINATION TYPE: CT chest wo con DATE OF EXAM: 09/07/2020 COMPARISON: None HISTORY: Pulmonary fibrosis. Hx Covid last January. Pt denies hx COPD/asthma. Pt struggled to lay pro ne CT DLP: 1223.90 mGycm High-resolution noncontrast CT of the chest was performed with the patient in the prone and supine po sitions. Lung and mediastinal window settings are submitted. Mild right basilar subpleural fibrosis. Mild associated pleural thickening. There is elevation of the right hemidiaphragm. Basilar parenchymal scarring seen. Mild lower lobe bronchiectasis seen. IMPRESSION: Mild subpleural fibrosis right lower lobe associated pleural thickening and mild basilar bronchiectasis.
== END | disposition home or self-care (01) ==
LOC: RADCTMAIN 18:17
PROVIDERS: ATTEND Internal Medicine Critical Care Medicine
DX: J84.10 Pulmonary fibrosis, unspecified (principal); J47.9 Bronchiectasis, uncomplicated; Z86.16 Personal history of COVID-19
CPT/HCPCS: 71250

== ENCOUNTER → 2021-02-28 | Outpatient (CLI) | payer MEDICARE | END | disposition home or self-care (01) | LOC: LABWHC1 11:01 | PROVIDERS: ATTEND Psychiatry & Neurology Neurology | DX: Z01.812 Encounter for preprocedural laboratory examination (principal) | CPT/HCPCS: 93005 ==

== ENCOUNTER → 2021-03-05 | Outpatient (CLI) | payer MEDICARE | END | disposition home or self-care (01) | LOC: LABWHC1 12:06 | PROVIDERS: ATTEND Psychiatry & Neurology Neurology | DX: Z01.812 Encounter for preprocedural laboratory examination (principal); Z20.822 Contact with and (suspected) exposure to COVID-19 | CPT/HCPCS: U0003; C9803; U0005 ==

== ENCOUNTER → 2021-04-23 | Outpatient (CLI) | payer MEDICARE ==
--- NOTE | 2021-04-23 12:00 | FL ---
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 Total fluoroscopy time: 1 minute 17 seconds. Total images: 15. Findings: There is asymmetric elevation right hemidiaphragm. During quiet breathing and deep inspiration/expiration, there is initial hesitancy in movement of the right hemidiaphragm at the start of inspiration. During sniffing maneuver, there is initial paradoxical upward movement of the right hemidiaphragm fol lowed by expected downward movement. IMPRESSION: Asymmetric elevation right hemidiaphragm along with initial hesitancy in movement of the right hemidi aphragm during normal breathing. Also, initial paradoxical upward movement during sniffing maneuver. 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
== END | disposition home or self-care (01) ==
LOC: RADFLMAIN 10:28
PROVIDERS: ATTEND Internal Medicine Critical Care Medicine
DX: J98.6 Disorders of diaphragm (principal)
CPT/HCPCS: 76000

== ENCOUNTER → 2022-07-12 | Outpatient (CLI) | payer MEDICARE | END | disposition home or self-care (01) | LOC: LABWHC1 11:53 | PROVIDERS: ATTEND Psychiatry & Neurology Neurology | DX: I49.9 Cardiac arrhythmia, unspecified (principal) | CPT/HCPCS: 36415; 93005 ==

== ENCOUNTER 2023-09-01 02:05 | Inpatient (IN) | payer MEDICARE ==
--- NOTE | 2023-09-01 02:41 | ED ---
General Adult HPI - General Chief complaint: Chest Pain Stated complaint: Heart attack Time Seen by Provider: 09/01/23 02:10 Source: patient, EMS, RN notes reviewed, old records reviewed Mode of arrival: EMS - History of Present Illness Initial comments: 72-year-old male presenting as transfer from [facility] with non-ST segment elevated MO. Patient had presented with near syncope and central chest pain, was found to have elevated troponin. He did have a fall with his near syncopal episode and had head trauma he received CT of the brain and C-spine which was negative. He had an elevated troponin and was initiated on heparin and nitroglycerin paste and was transferred for cardiology consultation. He states that initially he had central chest pain with dyspnea which is significantly improved at the time my evaluation. He has a history of hypertension and diabetes. No prior history of CAD. - Related Data Allergies Allergy/AdvReac Type Severity Reaction Status Date / Time No Known Allergies Allergy Verified 09/01/23 02:24 Review of Systems ROS Statement: Those systems with pertinent positive or pertinent negative responses have been documented in the HPI. ROS Other: All systems not noted in ROS Statement are negative. General Exam General appearance: alert, in no apparent distress Head exam: Present: atraumatic, normocephalic Eye exam: Present: normal appearance, PERRL ENT exam: Present: normal exam Neck exam: Present: normal inspection. Absent: tenderness, meningismus Respiratory exam: Present: normal lung sounds bilaterally. Absent: respiratory distress, wheezes Cardiovascular Exam: Present: regular rate, normal rhythm GI/Abdominal exam: Present: soft. Absent: distended, tenderness Extremities exam: Present: normal inspection, normal capillary refill Neurological exam: Present: alert, oriented X3 Psychiatric exam: Present: normal affect, normal mood Skin exam: Present: warm, dry, intact. Absent: cyanosis, diaphoretic Course Vital Signs 09/01/23 09/01/23 09/01/23 02:18 04:00 04:06 Temperature 98 F Pulse Rate 90 90 Pulse Rate [ 88 Bilateral Sitting Radial] Respiratory 20 16 Rate Blood Pressure 126/78 114/74 O2 Sat by Pulse 94 L 93 L Oximetry 09/01/23 06:00 Temperature Pulse Rate 92 Pulse Rate [ Bilateral Sitting Radial] Respiratory 16 Rate Blood Pressure 112/81 O2 Sat by Pulse 92 L Oximetry Medical Decision Making - Medical Decision Making Was pt. sent in by a medical professional or institution (SWETA Saleh, CASTING TECHNICIAN, urgent ca re, hospital, or longterm...) When possible be specific @ -Sent from outside hospital with non-ST segment elevated MO for further evaluation and treatment including cardiology consultation. Did you speak to anyone other than the patient for history (EMS, parent, family, police, friend...)? What history was obtained from this source @ -No Did you review nursing and triage notes (agree or disagree)? Why? @ -I reviewed and agree with nursing and triage notes Were old charts reviewed (outside hosp., previous admission, EMS record, old EKG, old radiological studies, urgent care reports/EKG's, longterm records)? Report findings @ -No old charts were reviewed Differential Chest Pain: Stable Angina, Unstable Angina, STEMI, NSTEMI Aortic Dissection, Pneumothorax, Musculoskeletal, Esophageal Spasm GERD, Cholecystitis, Pancreatitis, Zoster, this is not meant to be an all-inclusive list. EKG interpreted by me (3pts min.). @ -[-EKG showing sinus rhythm ventricular rate of 90, OR interval 179, QRS duration 108, QTc [address] segment elevation X-rays interpreted by me (1pt min.). @Images from [place] being loaded CT interpreted by me (1pt min.). @ -Images from [facility] being loaded U/S interpreted by me (1pt. min.). @ -None done What testing was considered but not performed or refused? (CT, X-rays, U/S, labs)? Why? @ -None What meds were considered but not given or refused? Why? @ -None Did you discuss the management of the patient with other professionals (professionals i.e. SWETA Saleh, CASTING TECHNICIAN, lab, RT, psych nurse, healthcare social worker, saddle and side wire stitcher, teacher, staff mine warfare officer, case loader operator)? Give summary @ -[EM, Dr. Xiong, and cardiology Was smoking cessation discussed for >3mins.? @ -No Was critical care preformed (if so, how long)? @ -Yes, 35 minutes Were there social determinants of health that impacted care today? How? (Homelessness, low income, unemployed, alcoholism, drug addiction, transportation, low edu. Level, literacy, decrease access to med. care, halfway, rehab)? @ -No Was there de-escalation of care discussed even if they declined (Discuss DNR or withdrawal of care, Hospice)? DNR status @ -No What co-morbidities impacted this encounter? (DM, HTN, Smoking, COPD, CAD, Cancer, CVA, ARF, Chemo, Hep., AIDS, mental health diagnosis, sleep apnea, morbid obesity)? @ -None Was patient admitted / discharged? Hospital course, mention meds given and route, prescriptions, significant lab abnormalities, going to OR and other pertinent info. @ -72-year-old male presenting from outside hospital as transfer for non-ST segment elevated MO. EKG is sinus without ST segment elevation. Patient is significantly improved without severe pain, very mild discomfort in the chest. Vital signs are stable. Patient continued on nitroglycerin and heparin and will be admitted for serial cardiac enzymes, cardiology consultation and evaluation and treatment of non-ST segment elevated MO Repeat labs including CBC, CMP, PT/INR and troponin are pending. Undiagnosed new problem with uncertain prognosis? @ -No Drug Therapy requiring intensive monitoring for toxicity (Heparin, Nitro, Insulin, Cardizem)? @ -No Were any procedures done? @ -No Diagnosis/symptom? @None ST segment elevated MO Acute, or Chronic, or Acute on Chronic? @ -[Acute Uncomplicated (without systemic symptoms) or Complicated (systemic symptoms)? @ -Complicated Side effects of treatment? @ -[No Exacerbation, Progression, or Severe Exacerbation? @ -No Poses a threat to life or bodily function? How? (Chest pain, [place], MO, pneumonia, PE, COPD, DKA, ARF, appy, cholecystitis, CVA, Diverticulitis, Homicidal, Suicidal, threat to staff... and all critical care pts) @ -[Yes, ACS - Lab Data Result diagrams: 09/01/23 02:49 09/01/23 02:49 Critical Care Time Critical Care Time: Yes Total Critical Care Time: 35 Disposition Clinical Impression: Acute non-ST elevation myocardial infarction (NSTEMI) Disposition: ADMITTED IP TO THIS HOSP Condition: Stable Is patient prescribed a controlled substance at d/c from ED?: No Time of Disposition: 02:40
[2023-09-01 03:13] LABS: Basophils # (A) 0.1 k/uL (0-0.2); Basophils % (A) 1 %; Eosinophils % (A) 0 %; HCT 51.5 % (39.0-53.0); Lymphocytes # (A) 2.4 k/uL (1.0-4.8); Lymphocytes % (A) 15 %; MCH 26.9 pg (25.0-35.0); MCV 81.6 fL (80.0-100.0); Mean Platelet Volume 8.6; Monocytes # (A) 1.7 k/uL (0-1.0); Monocytes % (A) 10 %; Neutrophils # (A) 11.7 k/uL (1.3-7.7); Neutrophils % (A) 70 %; Platelet Count 311 k/uL (150-450); RBC 6.31 m/uL (4.30-5.90); RDW 15.8 % (11.5-15.5); WBC 16.6 k/uL (3.8-10.6)
[2023-09-01 03:17] LABS: INR 1.3 (<1.2); Prothrombin Time 13.4 sec (10.0-12.5)
[2023-09-01] MEDS: HEPARIN SOD,PORK IN 0.45% NACL 25,000 UNIT in 0.45% NACL 1 250ML.BAG IV SCH (03:57)
[2023-09-01 04:06] LABS: Potassium 4.4 mmol/L (3.5-5.1)
[2023-09-01 04:07] LABS: ALT 20 U/L (4-49); AST 46 U/L (17-59); African American GFR (CKD) >90 (>60 ml/min/1.73 sqM); Albumin 3.8 g/dL (3.5-5.0); Alkaline Phosphatase 80 U/L (38-126); Anion Gap 7 mmol/L; Blood Urea Nitrogen 17 mg/dL (9-20); Calcium 8.5 mg/dL (8.4-10.2); Carbon Dioxide 23 mmol/L (22-30); Chloride 108 mmol/L (98-107); Glucose 131 mg/dL (74-99); Magnesium 2.2 mg/dL (1.6-2.3); Non-African American GFR(CKD) 84 (>60 ml/min/1.73 sqM); Sodium 138 mmol/L (137-145); Total Bilirubin 1.7 mg/dL (0.2-1.3); Total Protein 6.3 g/dL (6.3-8.2)
[2023-09-01 04:11] LABS: Partial Thromboplastin Time 64.4 sec (22.0-30.0)
[2023-09-01] MEDS: NITROGLYCERIN OINT 1 INCH/GM PACKET TOPICAL SCH (06:13)
[2023-09-01] MEDS: SODIUM CHLORIDE 0.9% 1,000 ML IV SCH ×2 (06:38→14:50)
[2023-09-01] MEDS: ATORVASTATIN 80 MG TAB PO SCH (08:09)
[2023-09-01] MEDS: ASPIRIN 81 MG PO SCH (08:09)
[2023-09-01] MEDS ORDERED: NITROGLYCERIN SL TABS 0.4 MG TAB SUBLINGUAL PRN (08:45)
[2023-09-01] MEDS ORDERED: ALPRAZolam 0.25 MG TAB PO PRN (08:45)
[2023-09-01] MEDS ORDERED: ALPRAZolam 0.5 MG TAB PO PRN (08:45)
[2023-09-01] MEDS: ATORVASTATIN 80 MG TAB PO STA (08:50)
[2023-09-01] MEDS: FUROSEMIDE 10 MG/ML 4 ML VIAL IV STA (09:00)
[2023-09-01] MEDS: METOPROLOL TARTRATE 25 MG TAB PO SCH (09:00)
[2023-09-01] MEDS: ASPIRIN 81 MG PO STA (09:00)
[2023-09-01] MEDS: LOSARTAN 25 MG TAB PO SCH (09:00)
[2023-09-01] MEDS ORDERED: HEPARIN SODIUM 1,000 UN/ML (10ML VL) ONE (09:10)
[2023-09-01] MEDS ORDERED: VERAPAMIL 2.5 MG/ML 2 ML AMP ONE (09:10)
[2023-09-01] MEDS ORDERED: LIDOCAINE 1% INJ 10MG/ML (20 ML MDV) ONE (09:11)
[2023-09-01] MEDS ORDERED: fentaNYL (PF) 50 MCG/ML 2 ML AMP ONE (09:11)
[2023-09-01] MEDS: SODIUM CHLORIDE 0.9% 1,000 ML IV ONE (09:34)
[2023-09-01] MEDS: MIDAZOLAM 2 MG/2 ML VIAL IVP ONE (09:52)
[2023-09-01] MEDS: LIDOCAINE 1% INJ 10MG/ML (20 ML MDV) SQ ONE (09:56)
[2023-09-01] MEDS: VERAPAMIL SYRINGE (5 MG/10 ML) INTRAARTER ONE (09:58)
[2023-09-01] MEDS: HEPARIN SODIUM 1,000 UN/ML (10ML VL) IVP ONE ×2 (10:00→10:15)
--- NOTE | 2023-09-01 10:09 | P.CRDCN ---
History of Present Illness History of present illness: HISTORY OF PRESENT ILLNESS: This is a 72-year-old male with a past medical history of hypertension, hyperlipidemia, and diabetes. Patient does not follow with a career technical education teacher. We have been asked to see the patient in consultation for non-STEMI. Patient examined at the bedside. Patient was transferred from [facility] due to chest pain and elevated troponin. Patient states he started having chest pain yesterday morning at 9am. He reports he still has some mild chest discomfort t his morning. He reports SOB which he states has been ongoing since having Covid a few years ago. He states that he sees Dr. Hernandez and was told that he had damage to his diaphragm due to COVID. Patient was found to have elevated troponin at [facility] of 2.76. Chest x-ray completed at [facility] was unremarkable. He was started on IV heparin and transferred to [facility] for further evaluation. The patient continues to report some chest discomfort at the time of examination. He also reports shortness of breath. Patient states he is a non-smoker. DIAGNOSTICS: - EKG reveals sinus mechanism with no signs of acute ischemia. - Laboratory data: WBC 16.6. Hemoglobin 17.0. Platelet count 311. Sodium 138. Potassium 4.4. BUN 17. Creatinine 0.92. Magnesium 2.2. Troponin 3.010 - Current home cardiac medications include none. REVIEW OF SYSTEMS: At the time of my exam: CONSTITUTIONAL: Denies fever or chills. HEENT: Denies blurred vision, vision changes, or eye pain. Denies hemoptysis CARDIOVASCULAR: + chest pain. Denies orthopnea. Denies PND. Denies palpitations RESPIRATORY: + shortness of breath. GASTROINTESTINAL: Denies abdominal pain. Denies nausea or vomiting. HEMATOLOGIC: Denies bleeding disorders. GENITOURINARY: Denies any blood in urine. SKIN: Denies pruitis. Denies rash. PHYSICAL EXAM: VITAL SIGNS: Reviewed. GENERAL: Well-developed in no acute distress. HEENT: Head is normocephalic. Pupils are equal, round. Sclerae anicteric. Mucous membranes of the mouth are moist. Neck supple. No JVD or thyromegaly LUNGS: Respirations even and unlabored. Lungs with bibasilar rales HEART: Regular rate and rhythm. S1 and S2 heard. ABDOMEN: Soft. Nondistended. Nontender. EXTREMITIES: Normal range of motion. No clubbing or cyanosis. Peripheral pul ses intact. No lower extremity edema NEUROLOGIC: Awake and alert. Oriented x 3. ASSESSMENT: Chest pain Non-STEMI Leukocytosis Shortness of breath, r/o pulmonary fibrosis or other etiology Chronic shortness of breath since COVID Hypertension Hyperlipidemia Diabetes History of polycythemia, under the care of hematology patient PLAN: Obtain 2D echo to assess cardiac structure and function Continue IV heparin Continue aspirin and atorvastatin Add metoprolol and losartan Patient to undergo cardiac catheterization today with Dr. Haddad Consult pulmonary for evaluation Consult hematology per Dr. Haddad for history of polycythemia Further recommendations pending patient course Nurse practitioner note has been reviewed by physician. Signing provider agrees with the documented findings, assessment, and plan of care documented by JAVA PERFORMANCE ENGINEER as a scribe. Medications and Allergies Allergies Allergy/AdvReac Type Severity Reaction Status Date / Time No Known Allergies Allergy Verified 09/01/23 02:24 Physical Exam Vitals: Vital Signs Temp Pulse Pulse Resp BP Pulse Ox 09/01/23 07:00 86 18 112/81 93 L 09/01/23 06:00 92 16 112/81 92 L 09/01/23 04:06 88 09/01/23 04:00 90 16 114/74 93 L 09/01/23 02:18 98 F 90 20 126/78 94 L Intake and Output 08/31/23 09/01/23 09/01/23 22:59 06:59 14:59 Other: Weight 95.254 kg Results 09/01/23 02:49 09/01/23 02:49 Cardiac Enzymes 09/01/23 09/01/23 Range/Units 02:49 02:49 AST 46 (17-59) U/L Troponin I 3.010 H* (0.000-0.034) ng/mL Coagulation 09/01/23 Range/Units 02:49 PT 13.4 H (10.0-12.5) sec APTT 64.4 H (22.0-30.0) sec CBC 09/01/23 Range/Units 02:49 WBC 16.6 H (3.8-10.6) k/uL RBC 6.31 H (4.30-5.90) m/uL Hgb 17.0 (13.0-17.5) gm/dL Hct 51.5 (39.0-53.0) % Plt Count 311 (150-450) k/uL Comprehensive Metabolic Panel 09/01/23 Range/Units 02:49 Sodium 138 (137-145) mmol/L Potassium 4.4 (3.5-5.1) mmol/L Chloride 108 H (98-107) mmol/L Carbon Dioxide 23 (22-30) mmol/L BUN 17 (9-20) mg/dL Creatinine 0.92 (0.66-1.25) mg/dL Glucose 131 H (74-99) mg/dL Calcium 8.5 (8.4-10.2) mg/dL AST 46 (17-59) U/L ALT 20 (4-49) U/L Alkaline Phosphatase 80 (38-126) U/L Total Protein 6.3 (6.3-8.2) g/dL Albumin 3.8 (3.5-5.0) g/dL Current Medications Generic Name Dose Route Start Last Admin Trade Name Freq PRN Reason Stop Dose Admin Aspirin 81 mg 09/01/23 09:00 Aspirin 81 Mg PO DAILY [facility] Atorvastatin Calcium 80 mg 09/01/23 09:00 Atorvastatin 80 Mg Tab PO DAILY [facility] Heparin Sodium/Sodium Chloride 250 mls @ 9.966 mls/hr 09/01/23 02:45 09/01/23 03:57 25,000 unit/ Sodium Chloride IV 10.49 units/kg/hr .Q24H MATT 9.966 mls/hr Administration Protocol 10.49 UNITS/KG/HR Sodium Chloride 1,000 mls @ 75 mls/hr 09/01/23 06:30 09/01/23 06:38 Saline 0.9% IV 75 mls/hr .[id number] MATT Administration Nitroglycerin 1 inch 09/01/23 06:00 09/01/23 06:13 Nitroglycerin Oint 1 Inch/Gm Packet TOPICAL 1 inch Q6HR MATT Administration Intake and Output 08/31/23 09/01/23 09/01/23 22:59 06:59 14:59 Other: Weight 95.254 kg 09/01/23 02:49 09/01/23 02:49
[2023-09-01] MEDS: TIROFIBAN 12.5MG-250ML NS 250 ML IV ONE (10:21)
[2023-09-01] MEDS ORDERED: CLOPIDOGREL 75 MG TAB ONE (10:25)
[2023-09-01] MEDS: CLOPIDOGREL 75 MG TAB PO ONE (10:28)
[2023-09-01] MEDS: IOPAMIDOL-370 100ML BTL INJ ONE (10:59)
--- NOTE | 2023-09-01 11:10 | P.CARDCATH ---
Date of Procedure: 09/01/23 Description of Procedure: History: This is a 72-year-old gentleman with history of hypertension type 2 diabetes and also had some probable pulmonary fibrosis and polycythemia. He sees Dr. Hernandez and Dr. Whitten. His primary care physician is Dr. Barnes. He was transferred here from [place] emergency room with chest pain and abnormal troponin. I evaluated him in the emergency room noted that his symptoms were strongly suggestive of angina. He was already on a heparin drip his pain had improved since arrival. He was advised to cardiac cath after due discussion. I will also seek consultation from both pulmonary and hematology in this regard. Procedures: #1 left heart catheterization and coronary angiography #2 PTCA and stenting of distal RCA dominant vessel with 2 drug- eluting stents #3 intravascular ultrasound of right coronary artery. Moderate conscious sedation time was 52 minutes. Patient was administered Versed oxygen saturation hemodynamics and EKG were monitored closely. Patient received 600 mg of Plavix and also Aggrastat bolus and drip and heparin and ACT was 280. He will be on aspirin and Plavix without interruption for 1 year. Procedure Details: The risks, benefits, complications, treatment options, and expected outcomes were discussed with the patient. The patient and/or family concurred with the proposed plan, giving informed consent. Patient was brought to the [facility] after IV hydration was begun and oral premedication was given. Patient was further sedated with midazolam. Patient was prepped and draped in the usual manner. Under strict aseptic precautions and local anesthesia a 6 Guamanian introducer was placed in the right radial artery. Using a JL 3/5 and a JR 4/0 catheters I performed coronary angiography and the same JR catheter was used to check LV pressures and LV gram was not performed. After the procedure was completed the sheaths and catheters were all removed. Hemostasis was achieved with TR band. Saturation in the fingers of the right hand was about 92%. Moderate conscious sedation time was 52 minutes. Patient's oxygen saturation hemodynamics and EKG were monitored closely. Findings: Hemodynamics: Left ventricle end-diastolic pressure was 9 mmHg without any gradient across aortic valve Left Main: Normal short no significant disease LAD: Good caliber good distribution vessel runs along the anterior wall and gives off septal and diagonal branches no significant disease CIRC: Nondominant vessel gives off a good size obtuse marginal branch and runs laterally fair caliber vessel no significant disease RCA: Very dominant vessel tortuous and distally before bifurcation into a good size PDA and PLV there is an eccentric area of haziness with a 95% narrowing which is the culprit lesion. There is some thrombus noted at the stent site of 95% stenosis and also distal to it LV: Not performed Closure Device: TR band Complications: None Estimated Blood Loss: Minimal Impression: Right dominant system normal filling pressures of 95% distal RCA with thrombus eccentric lesion. Left main LAD and circumflex have no significant disease Pre Procedure Diagnosis: Non-ST elevation DC with CAD Final Post Procedure Diagnosis: Non-ST elevation DC with CAD Recommendation: PCI of distal RCA that was performed expeditiously PCI procedure details: I used a standard right Dino guide catheter of 6 Guamanian caliber and a run-through wire. Without predilatation I performed primary stenting of the distal RCA lesion with a 15 mm long 4.0 caliber Xience stent. There was significant amount of thrombus burden. Patient was started on Aggrastat drip and bolus and also given heparin and ACT was 280. Proximal to the 15 mm long stent I deployed another 8 mm long 4.0 caliber Xience stent and telescope into it. I performed intravascular ultrasound which revealed that the stent was fairly well opposed but the reference diameter was larger than 4.1. I used a 4.5 caliber 15 mm long NC trek balloon and dilated the entire stented area. Patient had mild chest discomfort and mild inferior ST segment changes. Excellent angiographic result was achieved. Patient tolerated procedure well without complications. Details were discussed with the patient and . I expect he will be discharged in the next 24 to 48 hours. He will be on aspirin and Plavix without interruption for 1 year. I will seek consultation from hematology regarding his polycythemia and also from pulmonary regarding possible pulmonary fibrosis post COVID infection a couple of years ago Complications: None; patient tolerated the procedure well. Disposition: To esu- hemodynamically stable. Condition: Stable Discharge Disposition: To esu and then 3 S.
[2023-09-01 11:19] LABS: Glucose,Whole Blood 93 mg/dL (70-110)
--- NOTE | 2023-09-01 13:03 | XR ---
EXAMINATION TYPE: XR chest 1V portable DATE OF EXAM: 09/01/2023 Comparison: 08/31/2023 Clinical History: 72-year-old male CHF Findings: Stimulator leads extending to the posterior midline lower neck. Additional stimulator along the lower thoracic spinal canal. Low lung volumes with crowded vascular markings. Similar asymmetric elevation right hemidiaphragm. Interstitial densities and patchy bibasilar opacity. Left is underpenetrated an d not well assessed. Impression: Hypoventilatory changes with possible mild pulmonary vascular congestion, fairly similar appearance c ompared to recent prior.
[2023-09-01] MEDS ORDERED: ALBUTEROL NEBULIZED 2.5 MG/3 ML INHALATION PRN (13:19)
[2023-09-01] MEDS ORDERED: DEXTROSE 50% SYRINGE 50 ML IVP PRN ×2 (13:20)
[2023-09-01] MEDS ORDERED: PEGASYS SQ SCH (13:30)
[2023-09-01] MEDS ORDERED: IPRATROPIUM-ALBUTEROL 3 ML NEB INHALATION PRN (13:31)
[2023-09-01] MEDS: SODIUM CHLORIDE 0.9% 1,000 ML in EMPTY BAG 1 BAG IV SCH (14:50)
[2023-09-01] MEDS: TIROFIBAN 12.5MG-250ML NS 250 ML IV SCH (14:51)
--- NOTE | 2023-09-01 14:52 | P.CNPUL ---
History of Present Illness Consult date: 09/01/23 Requesting physician: Ralph Joyner Reason for consult: dyspnea, chest pain Chief complaint: Chest pain. History of present illness: Pulmonary consult dated September 01, 2023. 72-year-old male who apparently was transferred from [facility], with a non-ST segment elevation myocardial infarction. The patient states that he has been feeling well, distant work in the pole barn, lifting some things, and thought he had pulled a muscle. Later that day, the patient apparently was very nauseated, and threw up twice, and then eventually felt very lightheaded and dizzy, with ongoing chest discomfort. His family members encouraged him to come to the hospital to be seen. The patient did apparently have a fall, with a near syncopal episode, ended up getting a CT scan of the brain and spine C-spine that was negative. He states that he found it difficult to breathe. The patient has a history of hyperlipidemia, diabetes, hypertension, and also COPD, for which he uses generic Advair. He also has an albuterol inhaler as well. The patient did not think it was his COPD that was causing him difficulty. The patient was seen by cardiology, and ended up having catheterization. The patient had a left heart catheterization and coronary angiography, with PTCA and stenting of the distal right coronary artery, with 2 drug-eluting stents. Currently, the patient is on 3 L of oxygen, and saline at 75 cc an hour. Patient's white count was 16.6, hemoglobin 17, hematocrit 51.5, and platelet count 311,000. Sodium 138, potassium 4.4, chlorides 108, CO2 23, BUN 17, creatinine 0.92. Glucose was 93. Troponin was 3.010. Chest x-ray showed some mild pulmonary vascular congestion. Review of Systems REVIEW OF SYSTEMS: CONSTITUTIONAL: [Negative.] NEUROLOGIC: Near syncope. HEENT: [ Negative.] CARDIAC: Chest pain. PULMONARY: Shortness of breath. GI: Nausea and vomiting. : [Negative.] RHEUMATOLOGIC: [ Negative.] IMMUNOLOGIC: [ Negative.] ENDOCRINE: [Negative. ] DERMATOLOGIC: [Negative.] Medications and Allergies Home Medications Medication Instructions Recorded Confirmed Type Albuterol Sulfate [Albuterol 2 puff PO RT-QID PRN 09/01/23 09/01/23 History Sulfate Hfa] Apremilast [Otezla] 30 mg PO DAILY 09/01/23 09/01/23 History Aspirin 325 mg PO DAILY 09/01/23 09/01/23 History Canagliflozin [Invokana] 300 mg PO DAILY 09/01/23 09/01/23 History Cholecalciferol [Vitamin D3 (25 25 mcg PO DAILY 09/01/23 09/01/23 History Mcg = 1000 Iu)] Cyanocobalamin (Vitamin B-12) 2,500 mcg PO DAILY 09/01/23 09/01/23 History [Vitamin B-12] DULoxetine HCL [Cymbalta] 60 mg PO DAILY 09/01/23 09/01/23 History Divalproex [Depakote] 250 mg PO BID 09/01/23 09/01/23 History Fluticasone Propion/Salmeterol 1 inhalation PO RT-BID 09/01/23 09/01/23 History [Wixela 500-50 Inhub] Ginkgo Biloba [place] Extract [Ginkgo 60 mg PO DAILY 09/01/23 09/01/23 History Biloba] Insulin Glargine/Lixisenatide 40 units SQ DAILY 09/01/23 09/01/23 History [Soliqua 100 Unit-33 Mcg/ml Pen] Insulin Lispro [humaLOG Kwikpen] 5 unit SQ AC-TID 09/01/23 09/01/23 History Insulin Lispro [humaLOG Kwikpen] See Protocol SQ AC-TID MDD 40 units 09/01/23 09/01/23 History Naproxen [Naprosyn] 500 mg PO BID 09/01/23 09/01/23 History Pegasys 180 mcg SQ Q7D 09/01/23 09/01/23 History Potassium Gluconate 99 mg PO DAILY 09/01/23 09/01/23 History Rosuvastatin Calcium 5 mg PO DAILY 09/01/23 09/01/23 History Tamsulosin [Flomax] 0.4 mg PO DAILY 09/01/23 09/01/23 History lisinopriL [Zestril] 20 mg PO DAILY 09/01/23 09/01/23 History metFORMIN HCL [Glucophage] 1,000 mg PO BID 09/01/23 09/01/23 History rOPINIRole HCL [Requip] 2 mg PO QID 09/01/23 09/01/23 History Allergies Allergy/AdvReac Type Severity Reaction Status Date / Time pioglitazone [From Actos] AdvReac Severe leg Verified 09/01/23 12:12 swelling & sores semaglutide [From Ozempic] AdvReac Abdominal Verified 09/01/23 12:12 Pain & vomiting Physical Exam Osteopathic Statement: *. No significant issues noted on an osteopathic structural exam other than those noted in the History and Physical/Consult. Vitals: Vital Signs Temp Pulse Pulse Resp BP Pulse Ox 09/01/23 09:00 88 18 130/81 93 L 09/01/23 07:00 86 18 112/81 93 L 09/01/23 06:00 92 16 112/81 92 L 09/01/23 04:06 88 09/01/23 04:00 90 16 114/74 93 L 09/01/23 02:18 98 F 90 20 126/78 94 L Intake and Output 08/31/23 09/01/23 09/01/23 22:59 06:59 14:59 Intake Total 750 Output Total 350 Balance 400 Intake: IV 750 Output: Urine 350 Other: Weight 95.254 kg No acute distress, oriented 3. No respiratory distress. Currently on between 2 to 3 L of oxygen by nasal cannula. HEENT examination is grossly unremarkable. Mucous membranes are moist. No oral lesions. Neck supple. Full range of motion. No adenopathy thyromegaly or neck vein distention. Cardiovascular examination reveals regular rhythm rate. S1-S2 normal. No S3 or S4. No discernible murmur noted. Heart rate 88 bpm. Lungs reveal clear breath sounds. Breath sounds are equal bilaterally. No adventitious lung sounds including wheezes rhonchi or crackles. Abdomen soft bowel sounds are heard. No masses or tenderness. Extremities are intact. No cyanosis clubbing or edema. Skin is without rash or lesion. Neurologic examination is brief but nonfocal. Results - Laboratory Findings CBC and BMP: 09/01/23 02:49 09/01/23 02:49 PT/INR, D-dimer PT 13.4 sec (10.0-12.5) H 09/01/23 02:49 INR 1.3 (<1.2) H 09/01/23 02:49 Abnormal lab findings: Abnormal Labs 09/01/23 09/01/23 09/01/23 02:49 02:49 02:49 WBC 16.6 H RBC 6.31 H RDW 15.8 H Neutrophils # 11.7 H Monocytes # 1.7 H PT 13.4 H INR 1.3 H APTT 64.4 H Chloride 108 H Glucose 131 H Total Bilirubin 1.7 H Troponin I 09/01/23 02:49 WBC RBC RDW Neutrophils # Monocytes # PT INR APTT Chloride Glucose Total Bilirubin Troponin I 3.010 H* - Diagnostic Findings Chest x-ray: image reviewed Assessment and Plan Assessment: Non-ST segment elevation myocardial infarction, status post cardiac catheterizat ion, with 2 stents to the right coronary artery. History of COPD, relatively stable. History of hypertension. History of hyperlipidemia. History of diabetes mellitus. History of polycythemia. Plan: Plan dated September 01, 2023. The patient seen, in room 378. Currently he is on 2 to 3 L of oxygen by nasal cannula. The patient underwent cardiac catheterization, and had 2 drug-eluting stents placed in his right coronary artery. He was admitted with a diagnosis of non-ST segment elevation myocardial infarction. Labs, x-rays, and medications are reviewed. We will continue to follow the patient. I did ask him to call the office and make an appointment to see me after discharge. The patient is currently on Symbicort, and albuterol. That is appropriate. No additional recommendations are made. Time with Patient: Greater than 30
[2023-09-01] MEDS: IPRATROPIUM-ALBUTEROL 3 ML NEB INHALATION SCH (15:53)
[2023-09-01 16:32] VITALS: RESP 18
[2023-09-01 16:39] LABS: Glucose,Whole Blood 138 mg/dL (70-110)
[2023-09-01] MEDS: INSULIN ASPART (NovoLOG) 100 UNIT/ML VIAL SQ SCH ×2 (16:57→17:24)
[2023-09-01 20:12] LABS: Glucose,Whole Blood 173 mg/dL (70-110)
[2023-09-01] MEDS: SYMBICORT 160-4.5 MCG INHALER INHALATION SCH (21:27)
[2023-09-01] MEDS: DIVALPROEX 250 MG TABLET.DR PO SCH (22:10)
[2023-09-01] MEDS: HYDROXYUREA 500 MG CAP PO SCH (22:10)
--- NOTE | 2023-09-02 | HP ---
HISTORY AND PHYSICAL CHIEF COMPLAINT: Chest pain. HISTORY OF PRESENT ILLNESS: This 72-year-old gentleman with a past history of multiple medical problems, admitted with chest pain and near syncope. The patient was referred from [facility]. Acute wcq-OI-moggmaz elevation myocardial infarction was suspected. Troponin was elevated up to 3.010. The patient underwent cardiac catheterization as well as PTCA stenting of the distal RCA with 2 drug-eluting stents by Cardiology. Currently, the patient has some shortness of breath and cough also. The patient also had left diaphragmatic palsy also. There is no history of any fever, rigors, or chills at this time. The patient had COVID previously. PAST MEDICAL HISTORY: Reviewed include left diaphragmatic paralysis, hypertension, hyperlipidemia, and diabetes mellitus type 2. Rest of the history and rest of the chart is also reviewed. HOME MEDICATIONS: Reviewed include, 1. Complex dosing of insulin. 2. Invokana. Dose and rest of medications reviewed. ALLERGIES: Actos and Ozempic. FAMILY HISTORY: No history of heart disease or strokes in the family. SOCIAL HISTORY: No history of smoking or alcohol. REVIEW OF SYSTEMS: 14-point review is negative except as mentioned. PHYSICAL EXAMINATION: VITAL SIGNS: Pulse 86, blood pressure 112/81, and respirations 18. HEENT: Conjunctivae normal. NECK: No jugular venous distention. CARDIOVASCULAR: S1, S2. RESPIRATIONS: A few scattered rhonchi and crackles. ABDOMEN: Soft and nontender. LEGS: No edema, no swelling. NERVOUS SYSTEM: Nonfocal. SKIN: No rash. JOINTS: No active deforming arthropathy. LABORATORY DATA: WBC 16.6. Rest of the labs are noted. ASSESSMENT: 1. Acute dvk-JC-gnvxuyb elevation myocardial infarction, status post cardiac arrest and stenting of the RCA. 2. Troponin elevated up to 3.010. 3. Elevated WBC. 4. History of left diaphragmatic paralysis. 5. History of COVID-19 and possible pulmonary fibrosis. 6. Polycythemia. 7. Hypertension. 8. Hyperlipidemia. 9. Diabetes mellitus, type 2. 10.Possible chronic obstructive pulmonary disease and bronchitis. RECOMMENDATION: This 72-year-old gentleman presented with multiple complex medical issues. We will monitor the patient closely. Continue the current management and treatment. Continue the antiplatelet and post PTCA protocol. I would recommend bronchodilators and continue to monitor. Monitor blood pressure closely. Monitor blood sugars closely. DVT prophylaxis. I would also recommend HIV testing and procalcitonin also, and continue to monitor. Further recommendations to follow. We will hold off the antibiotic for now. MMODL / IJN: [id number] /
[2023-09-02 06:20] LABS: Glucose,Whole Blood 108 mg/dL (70-110)
[2023-09-02] MEDS ORDERED: HEPARIN SODIUM,PORCINE 10,000 UNIT in SODIUM CHLORIDE 0.9% 1,000 ML IRRIGATION PRN (07:00)
[2023-09-02] MEDS ORDERED: HEPARIN SODIUM,PORCINE (1 ML) 2,500 UNIT in SODIUM CHLORIDE 0.9% 250 ML IRRIGATION PRN (07:00)
[2023-09-02] MEDS ORDERED: ASPIRIN 325 MG TAB PO SCH (09:00)
[2023-09-02] MEDS: CHOLECALCIFEROL 25 MCG (1000 IU) TABLET PO SCH (09:04)
[2023-09-02] MEDS: DAPAGLIFLOZIN PROPANEDIOL 10 MG TABLET PO SCH (09:04)
[2023-09-02] MEDS: CYANOCOBALAMIN 500 MCG TAB PO SCH (09:04)
[2023-09-02] MEDS: DULoxetine HCL 60 MG CAPSULE.DR PO SCH (09:05)
[2023-09-02] MEDS: TAMSULOSIN 0.4 MG CAP.ER.24H PO SCH (09:05)
[2023-09-02] MEDS: CLOPIDOGREL 75 MG TAB PO SCH (09:05)
[2023-09-02] MEDS: NON FORMULARY DRUG (Potassium Gluconate [Potassium Gluconate] 99 MG Tablet) PO SCH (09:06)
[2023-09-02 09:15] VITALS: TEMP 98.5
--- NOTE | 2023-09-02 11:04 | CA ---
Transthoracic Echo Report Name: Socrates Koehler Age: 72 Gender: M : 1950 Exam Date: 09/01/2023 15:41 Exam Location: [place] Ht (in): 71 Wt (lb): 210 Ordering Physician: Anusha Lee Attending/Referring Phys: [id number], Rosa [employer] Kellie Mukherjee RDCS Procedure CPT: Indications: NSTEMI, LV Function Cardiac Hx: Technical Quality: Fair Contrast 1: Total Dose (mL): Contrast 2: Total Dose (mL): MEASUREMENTS (Male / Female) Normal Values 2D ECHO LV Diastolic Diameter PLAX 5.5 cm 4.2 - 5.9 / 3.9 - 5.3 cm LV Systolic Diameter PLAX 3.7 cm IVS Diastolic Thickness 1.4 cm 0.6 - 1.0 / 0.6 - 0.9 cm LVPW Diastolic Thickness 1.3 cm 0.6 - 1.0 / 0.6 - 0.9 cm LV Relative Wall Thickness 0.5 RV Internal Dim ED PLAX 3.4 cm LA Systolic Diameter LX 3.7 cm 3.0 - 4.0 / 2.7 - 3.8 cm LV Diastolic Volume MOD BP 78.0 cm??? 67 - 155 / 56 - 104 cm??? LV Systolic Volume MOD BP 34.5 cm??? 22 - 58 / 19 - 49 cm??? LV Ejection Fraction MOD BP 55.8 % >= 55 % LV Cardiac Index MOD BP 1638.7 cm???/min???m??? LV Diastolic Volume MOD 4C 98.5 cm??? LV Systolic Volume MOD 4C 40.4 cm??? LV Ejection Fraction MOD 4C 59.0 % LV Cardiac Index MOD 4C 2186.8 cm???/min???m??? LV Diastolic Length 4C 7.9 cm LV Systolic Length 4C 6.0 cm LV Diastolic Volume MOD 2C 62.2 cm??? LV Systolic Volume MOD 2C 27.1 cm??? LV Ejection Fraction MOD 2C 56.3 % LV Cardiac Index MOD 2C 1317.9 cm???/min???m??? LV Diastolic Length 2C 7.8 cm LV Systolic Length 2C 5.3 cm LA Volume 48.1 cm??? 18 - 58 / 22 - 52 cm??? LA Volume Index 21.8 cm???/m??? 16 - 28 cm???/m??? M-MODE Aortic Root Diameter MM 3.5 cm DOPPLER AV Peak Velocity 133.6 cm/s AV Peak Gradient 7.1 mmHg MV Area PHT 4.6 cm??? Mitral E Point Velocity 56.9 cm/s Mitral A Point Velocity 63.4 cm/s Mitral E to A Ratio 0.9 MV Deceleration Time 163.7 ms FINDINGS Left Ventricle Left ventricular ejection fraction is estimated at 50-55 %. Left ventricular cavity size normal. Mild lateral wall hypokinesis.Mildly increased left ventricular wall thickness. Right Ventricle Mild right ventricular dilatation. Unable to estimate the right ventricular systolic pressure. Right Atrium Normal right atrial size. No right atrial thrombus or mass seen. Left Atrium Normal left atrial size. Mitral Valve Structurally normal mitral valve. No mitral stenosis, regurgitation or prolapse.mitral annular calcification. Aortic Valve Trileaflet aortic valve. No aortic valve stenosis or regurgitation. Tricuspid Valve Structurally normal tricuspid valve. No tricuspid stenosis, regurgitation or prolapse. Pulmonic Valve Structurally normal pulmonic valve. No pulmonic regurgitation. Pericardium No pericardial effusion. Aorta Normal size aortic root and proximal ascending aorta. CONCLUSIONS Technically difficult study. Low ventricle systolic function borderline normal with mild lateral wall hypokinesis Limited Doppler study with no significant abnormalities Previewed by: Dr. Cristobal Hurtado MD (Electronically Signed) Final Date: 02 Sep 2023 11:03
[2023-09-02] MEDS: NON FORMULARY DRUG (Insulin Glargine/Lixisenatide [Soliqua 100 Unit-33 Mcg/Ml Pen] 3 ML In SQ SCH (11:15)
[2023-09-02 12:31] LABS: Prothrombin Time 11.3 sec (10.0-12.5)
[2023-09-02 12:34] LABS: Glucose,Whole Blood 121 mg/dL (70-110)
[2023-09-02 12:37] LABS: Basophils # (A) 0.1 k/uL (0-0.2); Basophils % (A) 1 %; Eosinophils # (A) 0.1 k/uL (0-0.7); Eosinophils % (A) 1 %; HCT 50.9 % (39.0-53.0); HGB 15.7 gm/dL (13.0-17.5); Hypochromasia Moderate; Lymphocytes # (A) 1.7 k/uL (1.0-4.8); Lymphocytes % (A) 13 %; MCH 26.8 pg (25.0-35.0); MCHC 30.7 g/dL (31.0-37.0); MCV 87.2 fL (80.0-100.0); Mean Platelet Volume 8.3; Monocytes # (A) 0.8 k/uL (0-1.0); Monocytes % (A) 6 %; Neutrophils # (A) 9.5 k/uL (1.3-7.7); Neutrophils % (A) 76 %; Platelet Count 367 k/uL (150-450); RBC 5.84 m/uL (4.30-5.90); RDW 15.9 % (11.5-15.5); WBC 12.5 k/uL (3.8-10.6)
[2023-09-02 12:40] LABS: African American GFR (CKD) >90 (>60 ml/min/1.73 sqM); Anion Gap 8 mmol/L; Blood Urea Nitrogen 17 mg/dL (9-20); Calcium 8.4 mg/dL (8.4-10.2); Carbon Dioxide 20 mmol/L (22-30); Chloride 111 mmol/L (98-107); Glucose 139 mg/dL (74-99); Non-African American GFR(CKD) >90 (>60 ml/min/1.73 sqM); Potassium 4.3 mmol/L (3.5-5.1); Sodium 139 mmol/L (137-145)
[2023-09-02 13:05] VITALS: BP 124/69
--- NOTE | 2023-09-02 13:43 | P.PN ---
Subjective Progress Note Date: 09/02/23 Principal diagnosis: Chest pain. Pulmonary consult dated September 01, 2023. 72-year-old male who apparently was transferred from [facility], with a non-ST segment elevation myocardial infarction. The patient states that he has been feeling well, distant work in the pole barn, lifting some things, and thought he had pulled a muscle. Later that day, the patient apparently was very nauseated, and threw up twice, and then eventually felt very lightheaded and dizzy, with ongoing chest discomfort. His family members encouraged him to come to the hospital to be seen. The patient did apparently have a fall, with a near syncopal episode, ended up getting a CT scan of the brain and spine C-spine that was negative. He states that he found it difficult to breathe. The patient has a history of hyperlipidemia, diabetes, hypertension, and also COPD, for which he uses generic Advair. He also has an albuterol inhaler as well. The patient did not think it was his COPD that was causing him difficulty. The patient was seen by cardiology, and ended up having catheterization. The patient had a left heart catheterization and coronary angiography, with PTCA and stenting of the distal right coronary artery, with 2 drug-eluting stents. Currently, the patient is on 3 L of oxygen, and saline at 75 cc an hour. Patient's white count was 16.6, hemoglobin 17, hematocrit 51.5, and platelet count 311,000. Sodium 138, potassium 4.4, chlorides 108, CO2 23, BUN 17, creatinine 0.92. Glucose was 93. Troponin was 3.010. Chest x-ray showed some mild pulmonary vascular conges tion. Progress note dated September 02, 2023. The patient was seen yesterday in consultation. The patient initially presented with shortness of breath and chest pain. The patient was thought to have a non- ST segment elevation myocardial infarction, at [facility], and was transferred down to [facility], for further evaluation. The patient was found to have blockage in his right coronary artery, and received 2 drug-eluting stents, yesterday. Clinically, the patient is doing much better. He is on 2 L of oxygen. He is getting saline at 75 cc an hour. The patient is hoping to be discharged home sometime later today. Current laboratory data includes a white count 12.5, hemoglobin 15.7, hematocrit 50.9, and a normal platelet count. Sodium 139, potassium 4.3, chlorides 111, CO2 20, BUN 17, and creatinine 0.66. Glucose is 121. The calcium is 8.4. Objective - Vital Signs Vital signs: Vital Signs Temp 98.5 F 09/02/23 09:03 Pulse 80 09/02/23 12:47 Resp 18 09/02/23 12:00 BP 124/69 09/02/23 12:00 Pulse Ox 96 09/02/23 12:00 FiO2 Intake & Output 09/01/23 09/02/23 09/02/23 18:59 06:59 18:59 Intake Total 868 236 Output Total 351 Balance 517 236 Weight 98.5 kg Intake: IV 750 Oral 118 236 Output: Urine 351 Other: # Voids 2 # Bowel Movements 1 - Exam No acute distress, oriented 3. Currently on 2 L of oxygen by nasal cannula. HEENT examination is grossly unremarkable. Mucous membranes are moist. No oral lesions. Neck supple. Full range of motion. No adenopathy thyromegaly or neck vein distention. Cardiovascular examination reveals regular rhythm rate. S1-S2 normal. No S3 or S4. No discernible murmur noted. Heart rate 73 bpm. Heart sounds are distant. Lungs reveal clear breath sounds. Breath sounds are equal bilaterally. No adventitious lung sounds including wheezes rhonchi or crackles. 2 L saturation is 96%. Abdomen soft bowel sounds are heard. No masses or tenderness. Extremities are intact. No cyanosis clubbing or edema. Skin is without rash or lesion. Neurologic examination is brief but nonfocal. - Labs CBC & Chem 7: 09/02/23 12:00 09/02/23 12:00 Labs: Abnormal Lab Results - Last 24 Hours (Table) 09/01/23 09/01/23 09/01/23 Range/Units 14:00 14:31 14:31 WBC (3.8-10.6) k/uL MCHC (31.0-37.0) g/dL RDW (11.5-15.5) % Neutrophils # (1.3-7.7) k/uL Chloride (98-107) mmol/L Carbon Dioxide (22-30) mmol/L Glucose (74-99) mg/dL POC Glucose (mg/dL) (70-110) mg/dL Hemoglobin A1c 7.1 H (<=6.0) % Troponin I 2.430 H* (0.000-0.034) ng/mL Procalcitonin 0.10 H (0.02-0.09) ng/mL 09/01/23 09/01/23 09/01/23 Range/Units 16:37 17:10 19:59 WBC (3.8-10.6) k/uL MCHC (31.0-37.0) g/dL RDW (11.5-15.5) % Neutrophils # (1.3-7.7) k/uL Chloride (98-107) mmol/L Carbon Dioxide (22-30) mmol/L Glucose (74-99) mg/dL POC Glucose (mg/dL) 138 H 173 H (70-110) mg/dL Hemoglobin A1c (<=6.0) % Troponin I 2.160 H* (0.000-0.034) ng/mL Procalcitonin (0.02-0.09) ng/mL 09/02/23 09/02/23 09/02/23 Range/Units 12:00 12:00 12:33 WBC 12.5 H (3.8-10.6) k/uL MCHC 30.7 L (31.0-37.0) g/dL RDW 15.9 H (11.5-15.5) % Neutrophils # 9.5 H (1.3-7.7) k/uL Chloride 111 H (98-107) mmol/L Carbon Dioxide 20 L (22-30) mmol/L Glucose 139 H (74-99) mg/dL POC Glucose (mg/dL) 121 H (70-110) mg/dL Hemoglobin A1c (<=6.0) % Troponin I (0.000-0.034) ng/mL Procalcitonin (0.02-0.09) ng/mL Assessment and Plan Assessment: Non-ST segment elevation myocardial infarction, status post cardiac catheterization, with 2 stents to the right coronary artery. History of COPD, relatively stable. History of hypertension. History of hyperlipidemia. History of diabetes mellitus. History of polycythemia. Plan: Plan dated September 01, 2023. The patient seen, in room 378. Currently he is on 2 to 3 L of oxygen by nasal cannula. The patient underwent cardiac catheterization, and had 2 drug-eluting stents placed in his right coronary artery. He was admitted with a diagnosis of non-ST segment elevation myocardial infarction. Labs, x-rays, and medications are reviewed. We will continue to follow the patient. I did ask him to call the office and make an appointment to see me after discharge. The patient is currently on Symbicort, and albuterol. That is appropriate. No additional recommendations are made. Plan dated September 02, 2023. The patient continues on oxygen by nasal cannula at 2 L. The patient is getting saline at 75 cc an hour. Labs, x-rays, and medications are reviewed. The patient went to the catheterization laboratory, and received 2 drug-eluting stents, to the right coronary artery yesterday. Clinically, he is feeling marguerite r. He is hoping to be discharged soon. No additional recommendations are made. Prognosis is guarded. Time with Patient: Less than 30
--- NOTE | 2023-09-02 14:20 | P.PN ---
Subjective HISTORY OF PRESENT ILLNESS: This is a 72-year-old male with a past medical history of hypertension, hyperlipidemia, and diabetes. 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 We have been asked to see the patient in consultation for non-STEMI. Patient examined at the bedside. Patient was transferred from [facility] due to chest pain and elevated troponin. Patient states he started having chest pain yesterday morning at 9am. He reports he still has some mild chest discomfort this morning. He reports SOB which he states has been ongoing since having Covid a few years ago. He states that he sees Dr. Hernandez and was told that he had dam age to his diaphragm due to COVID. Patient was found to have elevated troponin at [facility] of 2.76. Chest x-ray completed at [facility] was unremarkable. He was started on IV heparin and transferred to [facility] for further evaluation. The patient continues to report some chest discomfort at the time of examination. He also reports shortness of breath. Patient states he is a non-smoker. DIAGNOSTICS: - EKG reveals sinus mechanism with no signs of acute ischemia. - Laboratory data: WBC 16.6. Hemoglobin 17.0. Platelet count 311. Sodium 138. Potassium 4.4. BUN 17. Creatinine 0.92. Magnesium 2.2. Troponin 3.010 - Current home cardiac medications include none. 09/02/2023 Patient is status postcardiac catheterization with Dr. Haddad. Patient underwent PCI of the distal RCA x 2. Patient examined this morning the bedside. Patient denies chest pain or pressure. He denies shortness of breath. Vital signs are stable. Echocardiogram completed revealing ejection fraction 50 to 55%, mild lateral wall hypokinesis. PHYSICAL EXAM: VITAL SIGNS: Reviewed. GENERAL: Well-developed in no acute distress. HEENT: Head is normocephalic. Pupils are equal, round. Sclerae anicteric. Mucous membranes of the mouth are moist. Neck supple. No JVD or thyromegaly LUNGS: Respirations even and unlabored. Lungs with bibasilar rales HEART: Regular rate and rhythm. S1 and S2 heard. ABDOMEN: Soft. Nondistended. Nontender. EXTREMITIES: Normal range of motion. No clubbing or cyanosis. Peripheral pulses intact. No lower extremity edema NEUROLOGIC: Awake and alert. Oriented x 3. ASSESSMENT: Chest pain Non-STEMI postcardiac cath with PCI of the distal RCA x 2 stents Leukocytosis Shortness of breath, r/o pulmonary fibrosis or other etiology Chronic shortness of breath since COVID Hypertension Hyperlipidemia Diabetes History of polycythemia, under the care of hematology patient PLAN: Continue current cardiac medications Continue dual antiplatelet therapy with aspirin and Plavix for 12 months Continue high intensity statin. LDL goal less than 70. Patient is stable for discharge home today from a cardiac standpoint He is to follow-up postdischarge in the office with Dr. Haddad Nurse practitioner note has been reviewed by physician. Signing provider agrees with the documented findings, assessment, and plan of care documented by [employer] as a scribe. Objective - Vital Signs Vital signs: Vital Signs Temp 98.5 F 09/02/23 09:03 Pulse 84 09/02/23 09:13 Resp 18 09/02/23 09:05 BP 144/72 09/02/23 09:03 Pulse Ox 96 09/02/23 09:03 FiO2 Intake & Output 09/01/23 09/02/23 09/02/23 18:59 06:59 18:59 Intake Total 868 118 Output Total 351 Balance 517 118 Weight 98.5 kg Intake: IV 750 Oral 118 118 Output: Urine 351 Other: # Voids 2 # Bowel Movements 1 - Labs CBC & Chem 7: 09/02/23 12:00 09/02/23 12:00 Labs: Abnormal Lab Results - Last 24 Hours (Table) 09/01/23 09/01/23 09/01/23 Range/Units 14:00 14:31 14:31 POC Glucose (mg/dL) (70-110) mg/dL Hemoglobin A1c 7.1 H (<=6.0) % Troponin I 2.430 H* (0.000-0.034) ng/mL Procalcitonin 0.10 H (0.02-0.09) ng/mL 09/01/23 09/01/23 09/01/23 Range/Units 16:37 17:10 19:59 POC Glucose (mg/dL) 138 H 173 H (70-110) mg/dL Hemoglobin A1c (<=6.0) % Troponin I 2.160 H* (0.000-0.034) ng/mL Procalcitonin (0.02-0.09) ng/mL
[2023-09-02 15:48] VITALS: PULSE 73
[2023-09-02 22:21] LABS: Chol/HDL Ratio 3.29 Ratio; LDL Cholesterol,Calculated 64.5 mg/dL (0.0-131.0); VLDL Calculation 19.68 mg/dL (5.00-40.00)
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
--- NOTE | 2023-09-03 09:59 | P.DS ---
Providers Date of admission: 09/01/23 02:29 Expected date of discharge: 09/02/23 Attending physician: Ralph Joyner Consults: 09/01/23 02:29 Consult Physician Urgent Consulting Provider: Jared Harmon Consult Reason/Comments: NSTEMI Do you want consulting provider notified?: Yes 09/01/23 08:49 Consult Physician Routine Consulting Provider: Ty Hernandez Consult Reason/Comments: SOB Do you want consulting provider notified?: Yes 09/01/23 11:00 Consult Physician Routine Consulting Provider: Josefina Whitten Consult Reason/Comments: polycythemia Do you want consulting provider notified?: Yes Primary care physician: Alannah Barnes Hospital Course: Final diagnosis Acute NSTEMI, status post cardiac catheterization with stenting of the RCA Troponin elevated up to 3.010 Elevated WBC, likely reactive History of left diaphragmatic paralysis History of COVID-19 and possible pulmonary fibrosis Polycythemia Hypertension history Hyperlipidemia history Obesity with a BMI of 30.3 Diabetes mellitus, type II History of chronic obstructive pulmonary disease, currently stable GI prophylaxis DVT prophylaxis Full code Discharge disposition Patient is being discharged in a stable condition with guarded prognosis to home. Patient will follow-up with Dr. Barnes in the outpatient setting upon discharge. Patient is to continue with current medications as prescribed and c lose outpatient follow-up with cardiology as well as pulmonary as scheduled. Total time taken is greater than 35 minutes. Hospital course This is a 72-year-old male who was recently admitted with chest pain and near syncope while at [place] and transferred here for further cardiac evaluation. Patient also with an NSTEMI underwent cardiac catheterization with stenting to the distal RCA and has been monitored overnight. Patient also having some shortness of breath and evaluated by cardiology and pulmonary. Patient does have history of bronchitis with possible chronic obstructive pulmonary disease. Patient reports to feeling improved after stenting and would like to be discharged. Patient evaluated by cardiology and pulmonary and cleared for discharge with close outpatient follow-up. Please refer to other consultation notes for further HPI. Currently no reports of chest pain, shortness of breath, or palpitations. Patient is afebrile. No reports of nausea or vomiting and patient is tolerating diet. Patient will be discharged home today. Guarded prognosis Physical exam: Gen: This is a 72-year-old male who is awake, alert and oriented x 3, well- developed, well-nourished, elderly appearing, obese HEENT: Head is atraumatic, normocephalic. Pupils equal, round. Sclerae is anicteric. NECK: Supple. No JVD. No lymphadenopathy. No thyromegaly. LUNGS: Diminished breath sounds bilaterally with some scattered rhonchi. No intercostal retractions. HEART: S1, S2 are muffled ABDOMEN: Soft. Obese. Bowel sounds are present. No masses. No tenderness. EXTREMITIES: No pedal edema. No calf tenderness. NEUROLOGICAL: Patient is awake, alert and oriented x3. Cranial nerves 2 through 12 are grossly intact. Please refer to medication reconciliation sheet for a list of medications. The impression and plan of care has been dictated by Radha Padilla, Nurse Practitioner as directed. Dr. Ar MD I have performed a history and examination and MDM of this patient, discussed the same with the dictator, and agree with the dictator's assessment and plan as written ,documented as a scribe. Based on total visit time, I have performed more than 50% of the visit. Patient Condition at Discharge: Stable Plan - Discharge Summary Discharge Rx Participant: No New Discharge Prescriptions: New Dapagliflozin Propanediol [Farxiga] 10 mg PO DAILY #30 tab Clopidogrel [Plavix] 75 mg PO DAILY #90 tablet Aspirin 81 mg PO DAILY #30 tab Losartan [Cozaar] 25 mg PO DAILY #30 tab Hydroxyurea [Hydrea] 500 mg PO BID cap Atorvastatin [Lipitor] 80 mg PO DAILY #30 tab Metoprolol Tartrate [Lopressor] 25 mg PO BID #60 tab Nitroglycerin Sl Tabs [Nitrostat] 0.4 mg SUBLINGUAL Q5M PRN #20 tab PRN Reason: Chest Pain Continue rOPINIRole HCL [Requip] 3 mg PO QID Cyanocobalamin (Vitamin B-12) [Vitamin B-12] 2,500 mcg PO DAILY Pioglitazone [Actos] 15 mg PO DAILY Diclofenac Sodium Gel [Voltaren 1% Gel] 4 gm TOPICAL QID PRN PRN Reason: Pain HYDROcodone/APAP 5-325MG [[place] 5-325] 1 tab PO Q6H PRN PRN Reason: Pain Gabapentin [Neurontin] 300 mg PO HS Zinc Sulfate [Orazinc] 220 mg PO DAILY #30 cap Famotidine [Pepcid] 40 mg PO DAILY #15 tab guaiFENesin-DM 100-10MG/5ML [Robitussin DM] 10 ml PO Q8H PRN #100 ml PRN Reason: Cough Ascorbic Acid [Vitamin C] 1,000 mg PO DAILY #60 tab Cholecalciferol [Vitamin D3 (10 Mcg = 400 Iu)] 400 unit PO DAILY #30 tab Albuterol Inhaler [Ventolin Hfa Inhaler] 1 puff INHALATION Q6HR PRN #1 puff PRN Reason: Shortness Of Breath Or Wheezing Albuterol Sulfate [Albuterol Sulfate Hfa] 2 puff PO RT-QID PRN PRN Reason: Shortness Of Breath Apremilast [Otezla] 30 mg PO DAILY Cyanocobalamin (Vitamin B-12) [Vitamin B-12] 2,500 mcg PO DAILY Divalproex [Depakote] 250 mg PO BID DULoxetine HCL [Cymbalta] 60 mg PO DAILY Insulin Lispro [humaLOG Kwikpen] 5 unit SQ AC-TID Insulin Lispro [humaLOG Kwikpen] See Protocol SQ AC-TID MDD 40 units metFORMIN HCL [Glucophage] 1,000 mg PO BID rOPINIRole HCL [Requip] 2 mg PO QID Pegasys 180 mcg SQ Q7D Cholecalciferol [Vitamin D3 (25 Mcg = 1000 Iu)] 25 mcg PO DAILY Fluticasone Propion/Salmeterol [[place] 500-50 Inhub] 1 inhalation PO RT-BID Ginkgo Biloba [place] Extract [Ginkgo Biloba] 60 mg PO DAILY Insulin Glargine/Lixisenatide [Soliqua 100 Unit-33 Mcg/ml Pen] 40 units SQ DAILY Potassium Gluconate 99 mg PO DAILY Tamsulosin [Flomax] 0.4 mg PO DAILY Discontinued dilTIAZem HCL [Diltiazem 24Hr ER] 120 mg PO BID Hydroxyurea [Hydrea] 500 mg PO QID Aspirin EC [Ecotrin] 325 mg PO DAILY Ginkgo Biloba [place] Extract [Ginkgo] 60 mg PO DAILY Metoprolol Tartrate [Lopressor] 100 mg PO BID Canagliflozin [Invokana] 300 mg PO W/BRKFST dexAMETHasone ORAL [Hexadrol] 6 mg PO DAILY 3 Days #9 tab lisinopriL [Zestril] 20 mg PO DAILY Naproxen [Naprosyn] 500 mg PO BID Aspirin 325 mg PO DAILY Canagliflozin [Invokana] 300 mg PO DAILY Rosuvastatin Calcium 5 mg PO DAILY Discharge Medication List rOPINIRole HCL [Requip] 3 mg PO QID 03/25/17 [History] Cyanocobalamin (Vitamin B-12) [Vitamin B-12] 2,500 mcg PO DAILY 03/21/20 [History] Diclofenac Sodium Gel [Voltaren 1% Gel] 4 gm TOPICAL QID PRN 03/21/20 [History] Gabapentin [Neurontin] 300 mg PO HS 03/21/20 [History] HYDROcodone/APAP 5-325MG [[place] 5-325] 1 tab PO Q6H PRN 03/21/20 [History] Pioglitazone [Actos] 15 mg PO DAILY 03/21/20 [History] Albuterol Inhaler [Ventolin Hfa Inhaler] 1 puff INHALATION Q6HR PRN #1 puff 03/29/20 [Rx] Ascorbic Acid [Vitamin C] 1,000 mg PO DAILY #60 tab 03/29/20 [Rx] Cholecalciferol [Vitamin D3 (10 Mcg = 400 Iu)] 400 unit PO DAILY #30 tab 03/29/20 [Rx] Famotidine [Pepcid] 40 mg PO DAILY #15 tab 03/29/20 [Rx] Zinc Sulfate [Orazinc] 220 mg PO DAILY #30 cap 03/29/20 [Rx] guaiFENesin-DM 100-10MG/5ML [Robitussin DM] 10 ml PO Q8H PRN #100 ml 03/29/20 [Rx] Albuterol Sulfate [Albuterol Sulfate Hfa] 2 puff PO RT-QID PRN 09/01/23 [History] Apremilast [Otezla] 30 mg PO DAILY 09/01/23 [History] Cholecalciferol [Vitamin D3 (25 Mcg = 1000 Iu)] 25 mcg PO DAILY 09/01/23 [History] Cyanocobalamin (Vitamin B-12) [Vitamin B-12] 2,500 mcg PO DAILY 09/01/23 [History] DULoxetine HCL [Cymbalta] 60 mg PO DAILY 09/01/23 [History] Divalproex [Depakote] 250 mg PO BID 09/01/23 [History] Fluticasone Propion/Salmeterol [[place] 500-50 Inhub] 1 inhalation PO RT-BID 09/01/23 [History] Ginkgo Biloba [place] Extract [Ginkgo Biloba] 60 mg PO DAILY 09/01/23 [History] Insulin Glargine/Lixisenatide [Soliqua 100 Unit-33 Mcg/ml Pen] 40 units SQ DAILY 09/01/23 [History] Insulin Lispro [humaLOG Kwikpen] 5 unit SQ AC-TID 09/01/23 [History] Insulin Lispro [humaLOG Kwikpen] See Protocol SQ AC-TID MDD 40 units 09/01/23 [History] Pegasys 180 mcg SQ Q7D 09/01/23 [History] Potassium Gluconate 99 mg PO DAILY 09/01/23 [History] Tamsulosin [Flomax] 0.4 mg PO DAILY 09/01/23 [History] metFORMIN HCL [Glucophage] 1,000 mg PO BID 09/01/23 [History] rOPINIRole HCL [Requip] 2 mg PO QID 09/01/23 [History] Aspirin 81 mg PO DAILY #30 tab 09/02/23 [Rx] Atorvastatin [Lipitor] 80 mg PO DAILY #30 tab 09/02/23 [Rx] Clopidogrel [Plavix] 75 mg PO DAILY #90 tablet 09/02/23 [Rx] Dapagliflozin Propanediol [Farxiga] 10 mg PO DAILY #30 tab 09/02/23 [Rx] Hydroxyurea [Hydrea] 500 mg PO BID cap 09/02/23 [Rx] Losartan [Cozaar] 25 mg PO DAILY #30 tab 09/02/23 [Rx] Metoprolol Tartrate [Lopressor] 25 mg PO BID #60 tab 09/02/23 [Rx] Nitroglycerin Sl Tabs [Nitrostat] 0.4 mg SUBLINGUAL Q5M PRN #20 tab 09/02/23 [Rx] Follow up Appointment(s)/Referral(s): Chon Haddad MD [STAFF PHYSICIAN] - 1 Week (Office staff with call pt with an appt time and date) Alannah Barnes MD [Primary Care Provider] - 09/04/23 12:40 pm Patient Instructions/Handouts: After Radial Heart Catheterization (GEN) Activity/Diet/Wound Care/Special Instructions: Activity limited until follow-up Follow-up with primary care provider on discharge Follow-up with cardiology in 1 week Continue taking medications as prescribed Continue monitoring blood sugars before meals and at bedtime and keep a diary of all readings Continue heart healthy diabetic diet Discharge Disposition: HOME SELF-CARE
== END 2023-09-02 15:30 | disposition home or self-care (01) | DRG 322 ==
LOC: EC 02:05 → 3SCARD 02:29 → MERGE 02:29 → 3SCARD 12:53
PROVIDERS: ADMIT Hospitalist; ATTEND Hospitalist
PROC: B2111ZZ Fluoroscopy of Multiple Coronary Arteries using Low Osmolar Contrast (ICD-10-PCS; principal; 2023-09-01 16:15)
PROC: B240ZZ3 Ultrasonography of Single Coronary Artery, Intravascular (ICD-10-PCS; principal; 2023-09-01 16:15)
PROC: 4A023N7 Measurement of Cardiac Sampling and Pressure, Left Heart, Percutaneous Approach (ICD-10-PCS; principal; 2023-09-01 16:15)
PROC: 027035Z Dilation of Coronary Artery, One Artery with Two Drug-eluting Intraluminal Devices, Percutaneous Approach (ICD-10-PCS; principal; 2023-09-01 16:15)
DX: I21.4 Non-ST elevation (NSTEMI) myocardial infarction (principal); D47.1 Chronic myeloproliferative disease; J98.6 Disorders of diaphragm; Z86.74 Personal history of sudden cardiac arrest; J84.10 Pulmonary fibrosis, unspecified; E11.9 Type 2 diabetes mellitus without complications; E66.9 Obesity, unspecified; D75.1 Secondary polycythemia; D72.829 Elevated white blood cell count, unspecified; J44.9 Chronic obstructive pulmonary disease, unspecified; I10 Essential (primary) hypertension; Z68.30 Body mass index [BMI] 30.0-30.9, adult; U09.9 Post COVID-19 condition, unspecified; Z79.4 Long term (current) use of insulin; I25.10 Atherosclerotic heart disease of native coronary artery without angina pectoris; E78.5 Hyperlipidemia, unspecified; Z79.82 Long term (current) use of aspirin; Z79.84 Long term (current) use of oral hypoglycemic drugs; Z79.51 Long term (current) use of inhaled steroids; Z79.1 Long term (current) use of non-steroidal anti-inflammatories (NSAID); Z79.899 Other long term (current) drug therapy; Z96.82 Presence of neurostimulator; Z85.828 Personal history of other malignant neoplasm of skin
CPT/HCPCS: 36415; 71045; 80048; 80053; 80061; 83036; 83735; 83880; 84145; 84484; 85025; 85610; 85730; 87636; 92978; 93005; 93306; 93458; 94640; 96365; 96366; 96375; 99291

== ENCOUNTER → 2023-12-24 | Outpatient (CLI) | payer MEDICARE ==
[2023-12-25 02:52] LABS: T4, Free (Free Thyroxine) 1.13 ng/dL (0.80-1.80)
== END | disposition home or self-care (01) ==
LOC: LABWHC1 15:28
PROVIDERS: ATTEND Internal Medicine Interventional Cardiology
DX: E05.90 Thyrotoxicosis, unspecified without thyrotoxic crisis or storm (principal)
CPT/HCPCS: 36415; 84439; 84443

== ENCOUNTER 2024-11-10 23:01 | Inpatient (IN) | payer MEDICARE ==
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
[2024-11-10] MEDS: HEPARIN SOD,PORK IN 0.45% NACL 25,000 UNIT in 0.45% NACL 1 250ML.BAG IV SCH (23:59)
[2024-11-11 00:43] LABS: Basophils # (A) 0.11 10*3/uL (0.00-0.10); Basophils % (A) 0.6 %; Eosinophils # (A) 0.27 10*3/uL (0.04-0.35); Eosinophils % (A) 1.4 %; HCT 54.1 % (39.6-50.0); HGB 17.0 g/dL (13.0-17.0); Lymphocytes # (A) 4.95 10*3/uL (0.90-5.00); Lymphocytes % (A) 24.8 %; MCH 23.2 pg (27.0-32.0); MCHC 31.4 g/dL (32.0-37.0); MCV 73.8 fL (80.0-97.0); Monocytes # (A) 1.57 10*3/uL (0.20-1.00); Monocytes % (A) 7.9 %; Neutrophils # (A) 12.84 10*3/uL (1.80-7.70); Neutrophils % (A) 64.2 %; Platelet Count 561 10*3/uL (140-440); RBC 7.33 10*6/uL (4.40-5.60); RDW 18.2 % (11.5-14.5); WBC 19.95 10*3/uL (4.50-10.00)
[2024-11-11 02:09] LABS: ALT 67 U/L (4-49); AST 95 U/L (17-59); African American GFR (CKD) 78 (>60 ml/min/1.73 sqM); Albumin 4.3 g/dL (3.5-5.0); Alkaline Phosphatase 111 U/L (38-126); Anion Gap 14 mmol/L; Blood Urea Nitrogen 24 mg/dL (9-20); Calcium 9.7 mg/dL (8.4-10.2); Carbon Dioxide 24 mmol/L (22-30); Chloride 103 mmol/L (98-107); Glucose 151 mg/dL (74-99); Non-African American GFR(CKD) 68 (>60 ml/min/1.73 sqM); Potassium 4.8 mmol/L (3.5-5.1); Sodium 141 mmol/L (137-145); Total Protein 6.8 g/dL (6.3-8.2)
[2024-11-11] MEDS ORDERED: NITROGLYCERIN SL TABS 0.4 MG TAB SUBLINGUAL PRN ×2 (04:50→12:14)
[2024-11-11] MEDS ORDERED: ALBUTEROL NEBULIZED 2.5 MG/3 ML INHALATION PRN (04:52)
[2024-11-11] MEDS ORDERED: HYDROcodone/APAP 5-325MG 1 EACH TAB PO PRN (04:52)
[2024-11-11 05:46] LABS: HCT 52.9 % (39.6-50.0); HGB 16.7 g/dL (13.0-17.0); MCH 23.8 pg (27.0-32.0); MCHC 31.6 g/dL (32.0-37.0); MCV 75.5 fL (80.0-97.0); Platelet Count 481 10*3/uL (140-440); RBC 7.01 10*6/uL (4.40-5.60); RDW 18.5 % (11.5-14.5); WBC 19.29 10*3/uL (4.50-10.00)
[2024-11-11 05:48] LABS: INR 1.2 (<1.2); Prothrombin Time 13.1 sec (10.0-12.5)
[2024-11-11] MEDS: HEPARIN SODIUM 1,000 UN/ML (10ML VL) IV PRN (06:24)
[2024-11-11] MEDS ORDERED: DAPAGLIFLOZIN PROPANEDIOL 10 MG TABLET PO SCH (09:00)
[2024-11-11] MEDS ORDERED: PIOGLITAZONE 15 MG TAB PO SCH (09:00)
[2024-11-11] MEDS: SYMBICORT 160-4.5 MCG INHALER INHALATION SCH (09:16)
[2024-11-11] MEDS ORDERED: DEXTROSE 50% SYRINGE 50 ML IVP PRN (10:06)
[2024-11-11] MEDS: metFORMIN 500 MG TAB PO SCH (10:21)
[2024-11-11 10:34] LABS: Eosinophils # (M) 0.58 k/uL (0-0.7); Lymphocytes # (M) 6.75 k/uL (1.0-4.8); Monocytes # (M) 1.35 k/uL (0-1.0); Neutrophils # (M) 10.61 k/uL (1.3-7.7); Neutrophils % (M) 55 %; Total Cells Counted 100
[2024-11-11 10:36] LABS: RBC Morphology Normal
[2024-11-11] MEDS: ASPIRIN 81 MG PO SCH (10:43)
[2024-11-11] MEDS: METOPROLOL TARTRATE 25 MG TAB PO SCH (10:43)
[2024-11-11] MEDS: LOSARTAN 25 MG TAB PO SCH (10:43)
[2024-11-11] MEDS: CLOPIDOGREL 75 MG TAB PO SCH (10:43)
[2024-11-11] MEDS: ATORVASTATIN 80 MG TAB PO SCH (10:43)
[2024-11-11 11:08] LABS: Glucose,Whole Blood 128 mg/dL (70-110)
[2024-11-11] MEDS: INSULIN LISPRO (HumaLOG) 100 UNIT/ML 10 mL VL SQ SCH (11:46)
[2024-11-11] MEDS: FAMOTIDINE 20 MG TAB PO SCH (11:59)
[2024-11-11] MEDS: DIVALPROEX 250 MG TABLET.DR PO SCH (12:12)
[2024-11-11] MEDS: TAMSULOSIN 0.4 MG CAP.ER.24H PO SCH (12:12)
[2024-11-11] MEDS ORDERED: ALPRAZolam 0.25 MG TAB PO PRN (12:14)
[2024-11-11] MEDS ORDERED: ALPRAZolam 0.5 MG TAB PO PRN (12:14)
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
--- NOTE | 2024-11-11 13:54 | CA ---
Transthoracic Echo Report Name: Socrates Koehler Age: 74 Gender: M : 1950 Exam Date: 11/11/2024 10:06 Exam Location: [place] [facility] Ht (in): 72 Wt (lb): 210 Ordering Physician: Anusha Lee Attending/Referring Phys: [id number], Rosa [employer] Teacher Elke Stanton RDCS Procedure CPT: Indications: Syncope Cardiac Hx: Technical Quality: Fair Contrast 1: Total Dose (mL): Contrast 2: Total Dose (mL): MEASUREMENTS (Male / Female) Normal Values 2D ECHO LV Diastolic Diameter PLAX 6.0 cm 4.2 - 5.9 / 3.9 - 5.3 cm LV Systolic Diameter PLAX 3.4 cm IVS Diastolic Thickness 1.3 cm 0.6 - 1.0 / 0.6 - 0.9 cm LVPW Diastolic Thickness 1.5 cm 0.6 - 1.0 / 0.6 - 0.9 cm LV Relative Wall Thickness 0.5 RV Internal Dim ED PLAX 1.4 cm LVOT Diameter 2.3 cm LA Systolic Diameter LX 4.9 cm 3.0 - 4.0 / 2.7 - 3.8 cm LV Diastolic Volume MOD BP 88.9 cm??? 67 - 155 / 56 - 104 cm??? LV Systolic Volume MOD BP 35.9 cm??? 22 - 58 / 19 - 49 cm??? LV Ejection Fraction MOD BP 59.6 % >= 55 % LV Cardiac Index MOD BP 1694.7 cm???/min???m??? LV Diastolic Volume MOD 4C 106.8 cm??? LV Systolic Volume MOD 4C 41.1 cm??? LV Ejection Fraction MOD 4C 61.5 % LV Cardiac Index MOD 4C 2102.3 cm???/min???m??? LV Diastolic Length 4C 8.4 cm LV Systolic Length 4C 6.8 cm LV Diastolic Volume MOD 2C 74.6 cm??? LV Systolic Volume MOD 2C 31.1 cm??? LV Ejection Fraction MOD 2C 58.3 % LV Cardiac Index MOD 2C 1393.8 cm???/min???m??? LV Diastolic Length 2C 8.1 cm LV Systolic Length 2C 6.7 cm LA Volume 53.7 cm??? 18 - 58 / 22 - 52 cm??? LA Volume Index 24.2 cm???/m??? 16 - 28 cm???/m??? M-MODE Aortic Root Diameter MM 3.8 cm LA Systolic Diameter MM 4.6 cm LA Ao Ratio MM 1.2 AV Cusp Separation MM 1.9 cm DOPPLER MV Area PHT 3.0 cm??? Mitral E Point Velocity 61.0 cm/s Mitral A Point Velocity 96.9 cm/s Mitral E to A Ratio 0.6 MV Deceleration Time 254.2 ms FINDINGS Left Ventricle Left ventricular ejection fraction is estimated at 55-60 %. Mildly increased septal wall thickness. Mildly increased left ventricular diastolic diameter. Normal left ventricular systolic function with no obvious regional wall motion abnormalities. Left ventricular cavity size normal. Right Ventricle No Normal right ventricular size and function. Right ventricular systolic pressure within normal limits. Right Atrium Normal right atrial size. Left Atrium Moderately increased left atrial diameter. Mitral Valve Structurally normal mitral valve. Trace mitral regurgitation. No mitral stenosis. Aortic Valve Trileaflet aortic valve. Trace aortic regurgitation. No aortic stenosis. Tricuspid Valve Structurally normal tricuspid valve. Trace tricuspid regurgitation. No tricuspid stenosis. Pulmonic Valve Structurally normal pulmonic valve. No pulmonic stenosis. Trace pulmonic regurgitation. Pericardium No pericardial or pleural effusion. Aorta Mild aortic dilatation at the level of the sinuses of valsalva (root). 3.8 cm CONCLUSIONS LVEF 55% No obvious regional wall motion abnormality Normal right ventricular size and function. No significant valve dysfunction Previewed by: Dr Edd Alfonso (Electronically Signed) Final Date: 11 November 2024 13:22
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
[2024-11-11] MEDS: ONDANSETRON 4 MG/2 ML VIAL IVP STA (15:45)
[2024-11-11 16:11] LABS: Glucose,Whole Blood 206 mg/dL (70-110)
[2024-11-11 20:14] LABS: Glucose,Whole Blood 142 mg/dL (70-110)
[2024-11-11] MEDS ORDERED: GABAPENTIN 300 MG CAP PO SCH (21:00)
[2024-11-12] MEDS: SODIUM CHLORIDE 0.9% 1,000 ML in EMPTY BAG 1 BAG IV SCH (02:46)
[2024-11-12] MEDS: ASPIRIN 325 MG TAB PO ONE (06:02)
[2024-11-12] MEDS: ATORVASTATIN 80 MG TAB PO ONE (06:02)
[2024-11-12 06:06] LABS: Glucose,Whole Blood 149 mg/dL (70-110)
[2024-11-12 07:16] LABS: HCT 52.5 % (39.6-50.0); HGB 16.1 g/dL (13.0-17.0); MCH 23.6 pg (27.0-32.0); MCHC 30.7 g/dL (32.0-37.0); MCV 76.9 fL (80.0-97.0); Platelet Count 606 10*3/uL (140-440); RBC 6.83 10*6/uL (4.40-5.60); RDW 18.1 % (11.5-14.5); WBC 18.52 10*3/uL (4.50-10.00)
[2024-11-12 07:47] LABS: ALT 63 U/L (4-49); AST 57 U/L (17-59); African American GFR (CKD) 75 (>60 ml/min/1.73 sqM); Albumin 4.3 g/dL (3.5-5.0); Alkaline Phosphatase 111 U/L (38-126); Anion Gap 12 mmol/L; Blood Urea Nitrogen 30 mg/dL (9-20); Calcium 9.6 mg/dL (8.4-10.2); Carbon Dioxide 22 mmol/L (22-30); Chloride 105 mmol/L (98-107); Glucose 146 mg/dL (74-99); Non-African American GFR(CKD) 65 (>60 ml/min/1.73 sqM); Potassium 5.6 mmol/L (3.5-5.1); Sodium 139 mmol/L (137-145); Total Protein 6.7 g/dL (6.3-8.2)
[2024-11-12] MEDS ORDERED: ASPIRIN 325 MG TAB PO SCH (09:00)
[2024-11-12 10:14] LABS: Eosinophils # (M) 0.56 k/uL (0-0.7); Lymphocytes # (M) 5.19 k/uL (1.0-4.8); Monocytes # (M) 1.11 k/uL (0-1.0); Neutrophils # (M) 11.67 k/uL (1.3-7.7); Neutrophils % (M) 63 %; Total Cells Counted 100
[2024-11-12 10:29] LABS: RBC Morphology Normal
[2024-11-12 11:25] LABS: Glucose,Whole Blood 128 mg/dL (70-110)
[2024-11-12] MEDS ORDERED: HEPARIN SODIUM,PORCINE/D5W 25,000 UNIT in EMPTY BAG 1 BAG IV SCH (14:15)
--- NOTE | 2024-11-12 14:18 | P.PN ---
Subjective HISTORY OF PRESENT ILLNESS: This is a 74-year-old male with a past medical history significant for coronary artery disease, ischemic cardiomyopathy, polycythemia, hypertension, hyperlipidemia, CVA, pulmonary fibrosis, and peripheral neuropathy. Patient used to follow in the office with Dr. Haddad but is scheduled to establish with Dr. Leach. We have been asked to see the patient in consultation for elevated troponins. Patient examined at the bedside. Patient presented to the hospital after having multiple episodes of syncope. He states that he was feeling dizzy at home and had 4 episodes where he fell. He does report losing consciousness each time. He states he was standing up when these episodes occurred. He does report feeling lightheaded and felt like the room was spinning prior to this happening. He reports he was in a lot of pain in his leg as well due to a history of restless leg syndrome. He denies any episodes of shortness of breath or chest pain. No further episodes of syncope since coming to the hospital. Patient was found to have elevated troponins and was started on IV heparin. DIAGNOSTICS: - EKG reveals sinus mechanism without signs of acute ischemia - Laboratory data: WBC 19.29. Hemoglobin 16.7. Platelet count 481. Sodium 141. Potassium 4.8. BUN 24. Creatinine 1.08. Troponin 0.289. 0.324. 0.253. - Current home cardiac medications include Lipitor 80 mg daily, aspirin 81 mg daily, rosuvastatin 5 mg daily, Toprol tartrate 25 mg twice a day, losartan 25 mg daily, Plavix 75 mg daily. - Most recent echocardiogram obtained in April 2024 revealed ejection fraction 60%, negative bubble study, normal valves, moderate LVH - Cardiac catheterization history: August 2023 revealing 95% distal RCA disease with thrombus. left main, LAD, and circumflex had no significant disease. Patient underwent stenting of distal RCA with 2 drug-eluting stents. 11/12/2024 Patient examined this afternoon at the bedside. Patient currently denies chest pain or pressure. He denies shortness of breath. No further episode of syncope. He is scheduled to undergo cardiac catheterization today with Dr. Leach. Echocardiogram completed revealing ejection fraction 55 to 60%, no obvious regional wall motion abnormality, no significant valve dysfunction. PHYSICAL EXAM: VITAL SIGNS: Reviewed. GENERAL: Well-developed in no acute distress. HEENT: Head is normocephalic. Pupils are equal, round. Sclerae anicteric. Mucous membranes of the mouth are moist. Neck supple. No JVD or thyromegaly LUNGS: Respirations even and unlabored. Lungs essentially clear to auscultation bilaterally. HEART: Regular rate and rhythm. S1 and S2 heard. ABDOMEN: Soft. Nondistended. Nontender. EXTREMITIES: Normal range of motion. No clubbing or cyanosis. Peripheral pulses intact. No lower extremity edema NEUROLOGIC: Awake and alert. Oriented x 3. ASSESSMENT: Syncope Non-STEMI Coronary artery disease with previous stenting History of ischemic cardiomyopathy with improved EF Hypertension Hyperlipidemia History of polycythemia Peripheral neuropathy History of CVA History of pulmonary fibrosis PLAN: Continue IV heparin Continue current cardiac medications including aspirin, Lipitor, Plavix, losartan, metoprolol Patient to undergo cardiac catheterization today with Dr. Leach Further recommendations pending patient course Nurse practitioner note has been reviewed by physician. Signing provider agrees with the documented findings, assessment, and plan of care documented by INSTRUCTIONAL SYSTEMS DESIGN CONSULTANT as a scribe. Objective - Vital Signs Vital signs: Vital Signs Temp 97.8 F 11/12/24 11:46 Pulse 63 11/12/24 12:00 Resp 16 11/12/24 08:00 BP 146/76 11/12/24 12:00 Pulse Ox 95 11/12/24 12:00 FiO2 Intake & Output 11/11/24 11/12/24 11/12/24 18:59 06:59 18:59 Intake Total 583.968 285 Balance 583.968 285 Weight 95.254 kg 92.7 kg Intake: Intake, IV Titration 223.968 285 Amount Heparin Sod,Pork in 0.45% 223.968 NaCl 25,000 unit In 0.45 % NaCl 1 250ml.bag @ 10. 498 UNITS/KG/HR 10 mls/hr IV .Q24H [facility]ATT Rx#: [id number] Sodium Chloride 0.9% 1, 285 000 ml In Empty Bag 1 bag @ 1 ML/KG/HR 95.254 mls/ hr IV .[id number] MATT Rx#: [id number] Oral 360 Other: Voiding Method Toilet Toilet Toilet # Voids 1 1 1 - Labs CBC & Chem 7: 11/12/24 06:58 11/12/24 06:36 Labs: Abnormal Lab Results - Last 24 Hours (Table) 11/11/24 11/11/24 11/11/24 Range/Units 14:42 16:09 20:13 WBC (4.50-10.00) 10*3/uL RBC (4.40-5.60) 10*6/uL Hct (39.6-50.0) % MCV (80.0-97.0) fL MCH (27.0-32.0) pg MCHC (32.0-37.0) g/dL Plt Count (140-440) 10*3/uL Immature Gran # (0.00-0.04) 10*3/uL Neutrophils # (Manual) (1.3-7.7) k/uL Lymphocytes # (Manual) (1.0-4.8) k/uL Monocytes # (Manual) (0-1.0) k/uL APTT 81.6 H (22.0-30.0) sec Potassium (3.5-5.1) mmol/L BUN (9-20) mg/dL Glucose (74-99) mg/dL POC Glucose (mg/dL) 206 H 142 H (70-110) mg/dL ALT (4-49) U/L 11/11/24 11/12/24 11/12/24 Range/Units 23:08 06:05 06:36 WBC (4.50-10.00) 10*3/uL RBC (4.40-5.60) 10*6/uL Hct (39.6-50.0) % MCV (80.0-97.0) fL MCH (27.0-32.0) pg MCHC (32.0-37.0) g/dL Plt Count (140-440) 10*3/uL Immature Gran # (0.00-0.04) 10*3/uL Neutrophils # (Manual) (1.3-7.7) k/uL Lymphocytes # (Manual) (1.0-4.8) k/uL Monocytes # (Manual) (0-1.0) k/uL APTT 53.5 H 33.2 H (22.0-30.0) sec Potassium (3.5-5.1) mmol/L BUN (9-20) mg/dL Glucose (74-99) mg/dL POC Glucose (mg/dL) 149 H (70-110) mg/dL ALT (4-49) U/L 11/12/24 11/12/24 11/12/24 Range/Units 06:36 06:58 11:23 WBC 18.52 H (4.50-10.00) 10*3/uL RBC 6.83 H (4.40-5.60) 10*6/uL Hct 52.5 H (39.6-50.0) % MCV 76.9 L (80.0-97.0) fL MCH 23.6 L (27.0-32.0) pg MCHC 30.7 L (32.0-37.0) g/dL Plt Count 606 H (140-440) 10*3/uL Immature Gran # 0.19 H (0.00-0.04) 10*3/uL Neutrophils # (Manual) 11.67 H (1.3-7.7) k/uL Lymphocytes # (Manual) 5.19 H (1.0-4.8) k/uL Monocytes # (Manual) 1.11 H (0-1.0) k/uL APTT (22.0-30.0) sec Potassium 5.6 H (3.5-5.1) mmol/L BUN 30 H (9-20) mg/dL Glucose 146 H (74-99) mg/dL POC Glucose (mg/dL) 128 H (70-110) mg/dL ALT 63 H (4-49) U/L
--- NOTE | 2024-11-12 14:55 | P.PN ---
Subjective Progress Note Date: 11/12/24 Subjective: 74-year-old man with medical history of PCI of the RCA post NSTEMI, systolic cardiomyopathy, CVA, hypertension, diabetes mellitus type 2, polycythemia, COPD (no home O2), transferred from [facility], with complaints of syncopal episodes with falls. Patient reports sudden onset of dizziness 2 days ago associated with shortness of breath. He reports working in the bathroom whe n he suddenly felt lightheaded with a sudden spinning of the room. He then lost consciousness without warning and fell to the floor. He denied preceding chest pain, visual changes, diaphoresis or aura. The episode was unwitnessed however patient reports regaining consciousness spontaneously and was oriented. There was no confusion or focal neurological deficits. Patient reports experiencing a second episode of complete loss of consciousness shortly after which was associated with 1 episode of vomiting. He endorses continuous dizziness since 2 days ago, not associated with orthostatic hypotension. He however confirms dizziness on movement of the head. Patient denies recent illness, fever, cough and chest pain. Of note, patient noncompliant with medications. In the ED, lab work significant for troponin 0.289, WBC 19.29, BUN 24, glucose 151, total bilirubin 2.2, AST 95, ALP 67. EKG obtained independently reported as sinus rhythm. Patient admitted as inpatient, with cardiology on consult. 11/12: Patient seen at bedside. No significant overnight events. Denies shortness of breath, chest pain, lightheadedness, nausea and vomiting. Pertinent positives and negatives discussed above, a complete review of systems was preformed and all the other sytems were negative. Vitals Signs Reviewed. GENERAL: The patient is alert and oriented x3, not in any acute distress. Well developed, well nourished. HEENT: Pupils are round and equally reacting to light. EOMI. No scleral icterus. No conjunctival pallor. Normocephalic, atraumatic. CARDIOVASCULAR: S1 and S2 present. PULMONARY: Decreased bilateral breath sounds. No wheeze. ABDOMEN: Soft, nontender, nondistended, normoactive bowel sounds. No palpable organomegaly. MUSCULOSKELETAL: No joint swelling or deformity. EXTREMITIES: No cyanosis, clubbing, or pedal edema. NEUROLOGICAL: Gross neurological examination did not reveal any focal deficits. Decreased bilateral superficial sensation to touch of lower extremities more p rominent in the right leg extending from foot to knee. SKIN: No rashes. Data Reviewed Today: 11/12/2024 Patient Labs: WBC 18.52, hemoglobin 16.1, sodium 139, potassium 5.6, 9 procalcitonin 0.09, TSH 1.142 [normal], bilirubin 1.1, AST 57, ALT 63, ALP 111. Assessment and Plan #NSTEMI #Syncope likely secondary to above #Leukocytosis, WBC 19, likely secondary to above #Hyperbilirubinemia and mild transaminitis, likely secondary to NSTEMI - Continue on DAPT - For cardiac cath today - On IV heparin Pending blood cultures Continue cardiac telemetry - Liver panel stabilized. ALT 63 Pending chest x-ray #Hypertension #Hyperlipidemia #Type 2 diabetes mellitus #History of COVID-19 and possible pulmonary fibrosis Continue home medications, losartan 25 od Sliding scale insulin, hold metformin. Monitor glucose F: Normal saline E: Replete as necessary N: N.p.o. A: Mobile at baseline Dictation was produced using [employer] dictation software. please excuse any grammatical, word or spelling errors. Objective - Vital Signs Vital signs: Vital Signs Temp 97.8 F 11/12/24 04:00 Pulse 74 11/12/24 04:00 Resp 16 11/12/24 04:00 BP 118/71 11/12/24 04:00 Pulse Ox 96 11/12/24 04:00 FiO2 Intake & Output 11/11/24 11/12/24 11/12/24 18:59 06:59 18:59 Intake Total 583.968 Balance 583.968 Weight 95.254 kg 92.7 kg Intake: Intake, IV Titration 223.968 Amount Heparin Sod,Pork in 0.45% 223.968 NaCl 25,000 unit In 0.45 % NaCl 1 250ml.bag @ 10. 498 UNITS/KG/HR 10 mls/hr IV .Q24H [facility]ATT Rx#: [id number] Oral 360 Other: Voiding Method Toilet Toilet # Voids 1 1 - Labs CBC & Chem 7: 11/13/24 06:24 11/13/24 06:24 Labs: Abnormal Lab Results - Last 24 Hours (Table) 11/11/24 11/11/24 11/11/24 Range/Units 05:22 11:07 14:42 WBC (4.50-10.00) 10*3/uL RBC (4.40-5.60) 10*6/uL Hct (39.6-50.0) % MCV (80.0-97.0) fL MCH (27.0-32.0) pg MCHC (32.0-37.0) g/dL Plt Count (140-440) 10*3/uL Immature Gran # (0.00-0.04) 10*3/uL Neutrophils # (Manual) 10.61 H (1.3-7.7) k/uL Lymphocytes # (Manual) 6.75 H (1.0-4.8) k/uL Monocytes # (Manual) 1.35 H (0-1.0) k/uL APTT 81.6 H (22.0-30.0) sec Potassium (3.5-5.1) mmol/L BUN (9-20) mg/dL Glucose (74-99) mg/dL POC Glucose (mg/dL) 128 H (70-110) mg/dL ALT (4-49) U/L 11/11/24 11/11/24 11/11/24 Range/Units 16:09 20:13 23:08 WBC (4.50-10.00) 10*3/uL RBC (4.40-5.60) 10*6/uL Hct (39.6-50.0) % MCV (80.0-97.0) fL MCH (27.0-32.0) pg MCHC (32.0-37.0) g/dL Plt Count (140-440) 10*3/uL Immature Gran # (0.00-0.04) 10*3/uL Neutrophils # (Manual) (1.3-7.7) k/uL Lymphocytes # (Manual) (1.0-4.8) k/uL Monocytes # (Manual) (0-1.0) k/uL APTT 53.5 H (22.0-30.0) sec Potassium (3.5-5.1) mmol/L BUN (9-20) mg/dL Glucose (74-99) mg/dL POC Glucose (mg/dL) 206 H 142 H (70-110) mg/dL ALT (4-49) U/L 11/12/24 11/12/24 11/12/24 Range/Units 06:05 06:36 06:36 WBC (4.50-10.00) 10*3/uL RBC (4.40-5.60) 10*6/uL Hct (39.6-50.0) % MCV (80.0-97.0) fL MCH (27.0-32.0) pg MCHC (32.0-37.0) g/dL Plt Count (140-440) 10*3/uL Immature Gran # (0.00-0.04) 10*3/uL Neutrophils # (Manual) (1.3-7.7) k/uL Lymphocytes # (Manual) (1.0-4.8) k/uL Monocytes # (Manual) (0-1.0) k/uL APTT 33.2 H (22.0-30.0) sec Potassium 5.6 H (3.5-5.1) mmol/L BUN 30 H (9-20) mg/dL Glucose 146 H (74-99) mg/dL POC Glucose (mg/dL) 149 H (70-110) mg/dL ALT 63 H (4-49) U/L 11/12/24 Range/Units 06:58 WBC 18.52 H (4.50-10.00) 10*3/uL RBC 6.83 H (4.40-5.60) 10*6/uL Hct 52.5 H (39.6-50.0) % MCV 76.9 L (80.0-97.0) fL MCH 23.6 L (27.0-32.0) pg MCHC 30.7 L (32.0-37.0) g/dL Plt Count 606 H (140-440) 10*3/uL Immature Gran # 0.19 H (0.00-0.04) 10*3/uL Neutrophils # (Manual) 11.67 H (1.3-7.7) k/uL Lymphocytes # (Manual) 5.19 H (1.0-4.8) k/uL Monocytes # (Manual) 1.11 H (0-1.0) k/uL APTT (22.0-30.0) sec Potassium (3.5-5.1) mmol/L BUN (9-20) mg/dL Glucose (74-99) mg/dL POC Glucose (mg/dL) (70-110) mg/dL ALT (4-49) U/L Assessment and Plan Assessment: Attestation Attestation/ Senior Painter Note: Attestation to Progress Note, Participation (I saw and evaluated the patient with the Resident, and I reviewed and discussed the patient with the Resident and agree with the Resident's findings and plans as documented above., management reviewed and discussed), I agree with findings & plan, Provider Signature (MARTHA CEVALLOS, PIPPA Babin Time with Patient: Greater than 30
[2024-11-12 16:03] LABS: Cholesterol 126.00 mg/dL (0.00-200.00); HDL Cholesterol 37.80 mg/dL (40.00-60.00); LDL Cholesterol,Calculated 65.0 mg/dL (0.0-131.0); Triglycerides 116.00 mg/dL (0.00-149.00); VLDL Calculation 23.20 mg/dL (5.00-40.00)
[2024-11-12 16:40] LABS: Glucose,Whole Blood 95 mg/dL (70-110)
[2024-11-12] MEDS: IV FLUID CONTINUATION 1,000 ML IV ONE (17:10)
[2024-11-12] MEDS: MIDAZOLAM 2 MG/2 ML VIAL IVP ONE (17:12)
[2024-11-12] MEDS: LIDOCAINE 1% INJ 10MG/ML (20 ML MDV) SQ ONE (17:17)
[2024-11-12] MEDS: VERAPAMIL SYRINGE (5 MG/10 ML) INTRAARTER ONE (17:18)
[2024-11-12] MEDS: HEPARIN SODIUM 1,000 UN/ML (10ML VL) IV ONE (17:21)
[2024-11-12] MEDS: fentaNYL (PF) 50 MCG/ML 2 ML AMP IVP ONE (17:26)
[2024-11-12] MEDS: IOPAMIDOL-370 100ML BTL INJ ONE ×2 (17:27→17:46)
[2024-11-12] MEDS: HEPARIN SODIUM,PORCINE 10,000 UNIT in SODIUM CHLORIDE 0.9% 1,000 ML IRRIGATION PRN (17:28)
[2024-11-12] MEDS: HEPARIN SODIUM,PORCINE (1 ML) 2,500 UNIT in SODIUM CHLORIDE 0.9% 250 ML IRRIGATION PRN (17:28)
[2024-11-12] MEDS: HYDROmorphone 0.5 MG/0.5 ML SYRINGE IVP ONE (17:41)
[2024-11-12] MEDS ORDERED: RX INFO: IV CONTRAST WAS GIVEN 1 EACH MISC MISCELLANE PRN (17:53)
--- NOTE | 2024-11-12 17:57 | P.PCN ---
Date of Procedure: 11/12/24 Operative Findings: CARDIAC CATHETERIZATION PERFORMING PHYSICIAN: Arturo Leach MD, RPVI PROCEDURE PERFORMED: 1. Selective right and left coronary angiogram and IFR of the LCx 2. Left heart catheterization 3. Ultrasound-guided access of the right radial artery INDICATION: Acute non-ST elevation myocardial infarction COMPLICATION: None APPROACH: Right radial artery LEVEL OF SEDATION: Moderate with a sedation length of 30 minutes PROCEDURE DESCRIPTION: After obtaining an informed consent, the patient was brought to cardiac starch factory laborer. Local anesthesia was performed using lidocaine subcutaneously. The right radial artery was cannulated using Seldinger technique, under ultrasound guidance, the guidewire passed easily, following that we advanced a 5-Nigerien sheath dilator assembly, the wire and dilator were removed and sheath was flushed. Following that, 2 mg of verapamil along with 5000 unit heparin were given. Selective right and left coronary angiogram using a 5-Nigerien JR4 and JL 3.5 catheters. Right heart catheterization was performed using the JR4 catheter. After that I decided to do an IFR of the LCx. After zeroing the Dobler wire and equalized in between the Dobler wire and guiding catheter the left main was engaged using JL 3.5 guiding catheter and the Dobler wire was advanced toward the LCx with IFR came to be at 0.92 The procedure was completed there was no complication. SELECTIVE CORONARY ANGIOGRAM: The right coronary artery: Large caliber vessel and the dominant vessel with patent stent in the distal RCA Left main: Is angiographically normal The left circumflex: Large caliber vessel with intermediate lesion involving the proximal portion documented to be nonflow-limiting by Doppler wire The left anterior descending artery: Is angiographically normal HEMODYNAMICS: The LVEDP was about 12 mmHg with no significant gradient across aortic valve CONCLUSION: 1. Patent stent in the distal RCA 2. Intermediate lesion involving the proximal LCx with negative IFR POSTPROCEDURE MANAGEMENT: Medical treatment
--- NOTE | 2024-11-12 18:47 | XR ---
EXAMINATION TYPE: XR chest 2V DATE OF EXAM: 11/12/2024 6:42 PM COMPARISON: 09/01/2023 CLINICAL INDICATION: Male, 74 years old with history of leukocytosis + cough: Shortness of breath TECHNIQUE: XR chest 2V views of the chest are obtained. FINDINGS: Scattered senescent parenchymal changes noted. Hyperinflation compatible with COPD. Chronic elevation right hemidiaphragm. No evidence for infiltrate. No evidence for atelectasis. Heart size is stable. Mediastinal structures are stable and grossly unremarkable. No evidence for hilar prominence. Degenerative changes dorsal spine. IMPRESSION: 1. No evidence for acute pulmonary disease. [facility], , 11/12/2024 6:45 PM
[2024-11-12] MEDS: SODIUM CHLORIDE 0.9% 1,000 ML IV SCH (18:51)
[2024-11-12 20:11] LABS: Glucose,Whole Blood 168 mg/dL (70-110)
[2024-11-13 05:48] LABS: Glucose,Whole Blood 136 mg/dL (70-110)
[2024-11-13 07:10] LABS: Basophils # (A) 0.13 10*3/uL (0.00-0.10); Basophils % (A) 0.8 %; Eosinophils # (A) 0.54 10*3/uL (0.04-0.35); Eosinophils % (A) 3.3 %; HCT 49.5 % (39.6-50.0); HGB 15.3 g/dL (13.0-17.0); Lymphocytes # (A) 4.22 10*3/uL (0.90-5.00); Lymphocytes % (A) 25.8 %; MCH 23.3 pg (27.0-32.0); MCHC 30.9 g/dL (32.0-37.0); MCV 75.2 fL (80.0-97.0); Monocytes # (A) 1.56 10*3/uL (0.20-1.00); Monocytes % (A) 9.6 %; Neutrophils # (A) 9.74 10*3/uL (1.80-7.70); Neutrophils % (A) 59.6 %; Platelet Count 668 10*3/uL (140-440); RBC 6.58 10*6/uL (4.40-5.60); RDW 18.4 % (11.5-14.5); WBC 16.33 10*3/uL (4.50-10.00)
[2024-11-13 07:24] LABS: ALT 45 U/L (4-49); AST 34 U/L (17-59); African American GFR (CKD) >90 (>60 ml/min/1.73 sqM); Albumin 4.0 g/dL (3.5-5.0); Alkaline Phosphatase 92 U/L (38-126); Anion Gap 9 mmol/L; Blood Urea Nitrogen 20 mg/dL (9-20); Calcium 9.1 mg/dL (8.4-10.2); Carbon Dioxide 22 mmol/L (22-30); Chloride 109 mmol/L (98-107); Glucose 112 mg/dL (74-99); Non-African American GFR(CKD) 82 (>60 ml/min/1.73 sqM); Potassium 5.1 mmol/L (3.5-5.1); Sodium 140 mmol/L (137-145); Total Protein 6.1 g/dL (6.3-8.2)
[2024-11-13 08:20] VITALS: RESP 17
[2024-11-13 11:31] LABS: Glucose,Whole Blood 315 mg/dL (70-110)
[2024-11-13 11:34] VITALS: BP 131/83; PULSE 67; TEMP 98
--- NOTE | 2024-11-13 12:31 | P.DS ---
Providers Date of admission: 11/11/24 04:53 Expected date of discharge: 11/13/24 Attending physician: Ralph Joyner Consults: 11/11/24 04:50 Consult Physician Routine Consulting Provider: Arturo Leach Consult Reason/Comments: Syncope. NSTEMI Do you want consulting provider notified?: Yes Primary care physician: Alannah Barnes Hospital Course: Discharge Diagnosis: #NSTEMI #Syncope likely secondary to above #Leukocytosis, WBC 19, likely secondary to above #Hyperbilirubinemia and mild transaminitis, likely secondary to NSTEMI Hospital Course: 74-year-old man with medical history of PCI of the RCA post NSTEMI, systolic cardiomyopathy, CVA, hypertension, diabetes mellitus type 2, polycythemia, COPD (no home O2), transferred from [facility], with complaints of sy ncopal episodes with falls. Patient reports sudden onset of dizziness 2 days ago associated with shortness of breath. He reports working in the bathroom when he suddenly felt lightheaded with a sudden spinning of the room. He then lost consciousness without warning and fell to the floor. He denied preceding chest pain, visual changes, diaphoresis or aura. The episode was unwitnessed however patient reports regaining consciousness spontaneously and was oriented. There was no confusion or focal neurological deficits. Patient reports experiencing a second episode of complete loss of consciousness shortly after which was associated with 1 episode of vomiting. He endorses continuous dizziness since 2 days ago, not associated with orthostatic hypotension. He however confirms dizziness on movement of the head. Patient denies recent illness, fever, cough and chest pain. Of note, patient noncompliant with medications. In the ED, lab work significant for troponin 0.289, WBC 19.29, BUN 24, glucose 151, total bilirubin 2.2, AST 95, ALP 67. EKG obtained independently reported as sinus rhythm. Patient admitted as inpatient, with cardiology on consult. During the course of her hospital stay, patient was evaluated by cardiology. An echocardiogram obtained indicted LVEF of 55%, with no significant valve dysfunction and regional wall abnormalities and normal right ventricular size and function. Patient underwent cardiac catheterization showing a patent stent in the distal RCA and intermediate lesions involving the proximal LCx with negative IFR. Patient's medications were optimized and reviewed. Otezla 30 mg and potassium gluconate 99 mg was discontinued. Discussed the importance of medication compliance with patient, as he has not been compliant to his medications. Patient acknowledged understanding and expressed agreement with the plan to improve adherence. At time of discharge, the patient is hemodynamically stable with resolution of symptoms and is deemed appropriate for discharge home. Patient to follow-up with cardiology and PCP in 1 week's time. Patient seen and examined at bedside. 11/13/2024 Vital signs reviewed and stable. GENERAL: The patient is alert and oriented x3, not in any acute distress. Well developed, well nourished. HEENT: Pupils are round and equally reacting to light. EOMI. No scleral icterus. No conjunctival pallor. Normocephalic, atraumatic. CARDIOVASCULAR: S1 and S2 present. PULMONARY: Decreased bilateral breath sounds. No wheeze. ABDOMEN: Soft, nontender, nondistended, normoactive bowel sounds. No palpable organomegaly. MUSCULOSKELETAL: No joint swelling or deformity. EXTREMITIES: No cyanosis, clubbing, or pedal edema. NEUROLOGICAL: Gross neurological examination did not reveal any focal deficits. Decreased bilateral superficial sensation to touch of lower extremities more prominent in the right leg extending from foot to knee. SKIN: No rashes. A total of greater than 35 minutes of time were spent preparing this complex discharge summary. Patient was discharged on 11/13/2024. Attestation Attestation/ Leadership Program Intern Note: Attestation to D/C Summary, Participation (I saw and evaluated the patient with the Resident, and I reviewed and discussed the patient with the Resident and agree with the Resident's findings and plans as documented above., immediately available, management reviewed and discussed), I agree with findings & plan, Provider Signature (MARTHA CEVALLOS, PIPPA Stuart. Patient Condition at Discharge: Stable Plan - Discharge Summary Discharge Rx Participant: No New Discharge Prescriptions: New Famotidine [Pepcid] 40 mg PO DAILY #30 tablet Famotidine [Pepcid] 40 mg PO DAILY tab Continue Albuterol Sulfate [Albuterol Sulfate Hfa] 2 puff PO RT-QID PRN PRN Reason: Shortness Of Breath DULoxetine HCL [Cymbalta] 60 mg PO DAILY Rosuvastatin Calcium 5 mg PO DAILY rOPINIRole HCL [Requip] 2 mg PO QID Clopidogrel [Plavix] 75 mg PO DAILY #90 tablet Aspirin 81 mg PO DAILY #30 tab Losartan [Cozaar] 25 mg PO DAILY #30 tab Hydroxyurea [Hydrea] 500 mg PO BID cap Atorvastatin [Lipitor] 80 mg PO DAILY #30 tab Metoprolol Tartrate [Lopressor] 25 mg PO BID #60 tab Pregabalin [Lyrica] 75 mg PO BID Naproxen 500 mg PO DAILY Discharge Medication List Albuterol Sulfate [Albuterol Sulfate Hfa] 2 puff PO RT-QID PRN 09/01/23 [History] DULoxetine HCL [Cymbalta] 60 mg PO DAILY 09/01/23 [History] rOPINIRole HCL [Requip] 2 mg PO QID 09/01/23 [History] Aspirin 81 mg PO DAILY #30 tab 09/02/23 [Rx] Atorvastatin [Lipitor] 80 mg PO DAILY #30 tab 09/02/23 [Rx] Clopidogrel [Plavix] 75 mg PO DAILY #90 tablet 09/02/23 [Rx] Hydroxyurea [Hydrea] 500 mg PO BID cap 09/02/23 [Rx] Losartan [Cozaar] 25 mg PO DAILY #30 tab 09/02/23 [Rx] Metoprolol Tartrate [Lopressor] 25 mg PO BID #60 tab 09/02/23 [Rx] Naproxen 500 mg PO DAILY 11/11/24 [History] Pregabalin [Lyrica] 75 mg PO BID 11/11/24 [History] Rosuvastatin Calcium 5 mg PO DAILY 11/11/24 [History] Famotidine [Pepcid] 40 mg PO DAILY tab 11/13/24 [Rx] Famotidine [Pepcid] 40 mg PO DAILY #30 tablet 11/13/24 [Rx] Follow up Appointment(s)/Referral(s): Arturo Leach MD [STAFF PHYSICIAN] - 1 Week (please call to schedule.) Alannah Barnes MD [Primary Care Provider] - 1-2 days (please call to schedule.) Patient Instructions/Handouts: *[facility] - After Heart Catheterization - Languages And Literature Instructor Instructions, Near Syncope (DC), Syncope in Older Adults (DC) Activity/Diet/Wound Care/Special Instructions: please visit [facility] on Friday to have your event monitor placed. Do not need to schedule appointment please just walk in. [address] [facility] [address] Questions please call: [phone] Discharge Disposition: HOME SELF-CARE
--- NOTE | 2024-11-13 13:38 | P.PN ---
Subjective HISTORY OF PRESENT ILLNESS: This is a 74-year-old male with a past medical history significant for coronary artery disease, ischemic cardiomyopathy, polycythemia, hypertension, hyperlipidemia, CVA, pulmonary fibrosis, and peripheral neuropathy. Patient used to follow in the office with Dr. Haddad but is scheduled to establish with Dr. Leach. We have been asked to see the patient in consultation for elevated troponins. Patient examined at the bedside. Patient presented to the hospital after having multiple episodes of syncope. He states that he was feeling dizzy at home and had 4 episodes where he fell. He does report losing consciousness each time. He states he was standing up when these episodes occurred. He does report feeling lightheaded and felt like the room was spinning prior to this happening. He reports he was in a lot of pain in his leg as well due to a history of restless leg syndrome. He denies any episodes of shortness of breath or chest pain. No further episodes of syncope since coming to the hospital. Patient was found to have elevated troponins and was started on IV heparin. DIAGNOSTICS: - EKG reveals sinus mechanism without signs of acute ischemia - Laboratory data: WBC 19.29. Hemoglobin 16.7. Platelet count 481. Sodium 141. Potassium 4.8. BUN 24. Creatinine 1.08. Troponin 0.289. 0.324. 0.253. - Current home cardiac medications include Lipitor 80 mg daily, aspirin 81 mg daily, rosuvastatin 5 mg daily, Toprol tartrate 25 mg twice a day, losartan 25 mg daily, Plavix 75 mg daily. - Most recent echocardiogram obtained in April 2024 revealed ejection fraction 60%, negative bubble study, normal valves, moderate LVH - Cardiac catheterization history: August 2023 revealing 95% distal RCA disease with thrombus. left main, LAD, and circumflex had no significant disease. Patient underwent stenting of distal RCA with 2 drug-eluting stents. 11/12/2024 Patient examined this afternoon at the bedside. Patient currently denies chest pain or pressure. He denies shortness of breath. No further episode of syncope. He is scheduled to undergo cardiac catheterization today with Dr. Leach. Echocardiogram completed revealing ejection fraction 55 to 60%, no obvious regional wall motion abnormality, no significant valve dysfunction. 11/13/2024 Patient examined this morning at the bedside. Patient is status post cardiac catheterization with Dr. Leach revealing patent stent in the distal RCA and intermediate lesion involving the proximal left circumflex with negative IFR. Medical management was recommended. Patient denies any chest pain or pressure. He denies any shortness of breath. Vital signs are stable. No further episodes of syncope. PHYSICAL EXAM: VITAL SIGNS: Reviewed. GENERAL: Well-developed in no acute distress. HEENT: Head is normocephalic. Pupils are equal, round. Sclerae anicteric. Mucous membranes of the mouth are moist. Neck supple. No JVD or thyromegaly LUNGS: Respirations even and unlabored. Lungs essentially clear to auscultation bilaterally. HEART: Regular rate and rhythm. S1 and S2 heard. ABDOMEN: Soft. Nondistended. Nontender. EXTREMITIES: Normal range of motion. No clubbing or cyanosis. Peripheral pulses intact. No lower extremity edema NEUROLOGIC: Awake and alert. Oriented x 3. ASSESSMENT: Syncope Non-STEMI status post cardiac catheterization as above Coronary artery disease with previous stenting History of ischemic cardiomyopathy with improved EF Hypertension Hyperlipidemia History of polycythemia Peripheral neuropathy History of CVA History of pulmonary fibrosis PLAN: Continue current cardiac medications including aspirin, Lipitor, Plavix, losartan, and metoprolol Patient may be discharged home today from a cardiac standpoint Patient instructed [facility] Friday to [facility]er 14-day Holter monitor Patient to follow-up postdischarge in the office with Dr. Leach Nurse practitioner note has been reviewed by physician. Signing provider agrees with the documented findings, assessment, and plan of care documented by [employer] as a scribe. Objective - Vital Signs Vital signs: Vital Signs Temp 98 F 11/13/24 11:32 Pulse 67 11/13/24 11:32 Resp 17 11/13/24 08:00 BP 131/83 11/13/24 11:32 Pulse Ox 95 11/13/24 08:00 FiO2 Intake & Output 11/12/24 11/13/24 11/13/24 18:59 06:59 18:59 Intake Total 1035 20 128 Balance 1035 20 128 Weight 92.6 kg Intake: IV 210 20 10 Invasive Line 2 10 20 10 Intake, IV Titration 285 Amount Sodium Chloride 0.9% 1, 285 000 ml In Empty Bag 1 bag @ 1 ML/KG/HR 95.254 mls/ hr IV .[id number] [facility] Rx#: [id number] Oral 540 118 Other: Voiding Method Toilet Toilet Toilet # Voids 1 3 - Labs CBC & Chem 7: 11/13/24 06:24 11/13/24 06:24 Labs: Abnormal Lab Results - Last 24 Hours (Table) 11/12/24 11/12/24 11/13/24 Range/Units 06:36 20:10 05:46 WBC (4.50-10.00) 10*3/uL RBC (4.40-5.60) 10*6/uL MCV (80.0-97.0) fL MCH (27.0-32.0) pg MCHC (32.0-37.0) g/dL Plt Count (140-440) 10*3/uL Immature Gran # (0.00-0.04) 10*3/uL Neutrophils # (1.80-7.70) 10*3/uL Monocytes # (0.20-1.00) 10*3/uL Eosinophils # (0.04-0.35) 10*3/uL Basophils # (0.00-0.10) 10*3/uL Chloride (98-107) mmol/L Glucose (74-99) mg/dL POC Glucose (mg/dL) 168 H 136 H (70-110) mg/dL Total Protein (6.3-8.2) g/dL HDL Cholesterol 37.80 L (40.00-60.00) mg/dL 11/13/24 11/13/24 11/13/24 Range/Units 06:24 06:24 11:29 WBC 16.33 H (4.50-10.00) 10*3/uL RBC 6.58 H (4.40-5.60) 10*6/uL MCV 75.2 L (80.0-97.0) fL MCH 23.3 L (27.0-32.0) pg MCHC 30.9 L (32.0-37.0) g/dL Plt Count 668 H (140-440) 10*3/uL Immature Gran # 0.14 H (0.00-0.04) 10*3/uL Neutrophils # 9.74 H (1.80-7.70) 10*3/uL Monocytes # 1.56 H (0.20-1.00) 10*3/uL Eosinophils # 0.54 H (0.04-0.35) 10*3/uL Basophils # 0.13 H (0.00-0.10) 10*3/uL Chloride 109 H (98-107) mmol/L Glucose 112 H (74-99) mg/dL POC Glucose (mg/dL) 315 H (70-110) mg/dL Total Protein 6.1 L (6.3-8.2) g/dL HDL Cholesterol (40.00-60.00) mg/dL Microbiology - Last 24 Hours (Table) 11/11/24 14:42 Blood Culture - Preliminary Blood
== END 2024-11-13 13:43 | disposition home or self-care (01) | DRG 281 ==
LOC: EC 23:01 → 3SCARD 11-11 04:52 → OBSVTOIN 11-11 04:53 → 3SCARD 11-11 05:35
PROVIDERS: ADMIT Hospitalist; ATTEND Hospitalist
PROC: 4A023N7 Measurement of Cardiac Sampling and Pressure, Left Heart, Percutaneous Approach (ICD-10-PCS; principal; 2024-11-12 07:30)
PROC: B2111ZZ Fluoroscopy of Multiple Coronary Arteries using Low Osmolar Contrast (ICD-10-PCS; 2024-11-12 07:30)
DX: I21.4 Non-ST elevation (NSTEMI) myocardial infarction (principal); I42.8 Other cardiomyopathies; D72.829 Elevated white blood cell count, unspecified; E11.40 Type 2 diabetes mellitus with diabetic neuropathy, unspecified; D75.1 Secondary polycythemia; I10 Essential (primary) hypertension; Z79.4 Long term (current) use of insulin; R55 Syncope and collapse; R74.01 Elevation of levels of liver transaminase levels; I25.5 Ischemic cardiomyopathy; E80.6 Other disorders of bilirubin metabolism; E78.5 Hyperlipidemia, unspecified; I25.10 Atherosclerotic heart disease of native coronary artery without angina pectoris; I25.2 Old myocardial infarction; Z86.73 Personal history of transient ischemic attack (TIA), and cerebral infarction without residual deficits; Z95.5 Presence of coronary angioplasty implant and graft; Z91.148 Patient's other noncompliance with medication regimen for other reason; Z79.84 Long term (current) use of oral hypoglycemic drugs; Z88.8 Allergy status to other drugs, medicaments and biological substances; Z88.9 Allergy status to unspecified drugs, medicaments and biological substances; Z79.82 Long term (current) use of aspirin; Z86.16 Personal history of COVID-19; Z79.02 Long term (current) use of antithrombotics/antiplatelets; Z79.899 Other long term (current) drug therapy; Z85.828 Personal history of other malignant neoplasm of skin
CPT/HCPCS: 36415; 71046; 80053; 80061; 84145; 84443; 84484; 85025; 85610; 85730; 87040; 93005; 93306; 93458; 93799; 94640; 96365; 96366; 99285